=== PATIENT | female | born 1930 | race Asian ===

== ENCOUNTER 2018-09-05 13:13 | Inpatient (IN) | payer MEDICARE, MEDICAID ==
[2018-09-05] VITALS (11 sets, daily range): BP systolic 90–139; BP diastolic 42–117
[~2018-09-05] VITALS: Ht 154.9 cm; Wt 81.6 kg
[~2018-09-05 13:13] MED LIST: ACTOS30 MG ORAL; ASPIRIN-LOW81 MG ORAL; ATORVASTATIN CA20 MG ORAL; CELEBREX200 MG ORAL; DIOVAN HCT 80MG1 TAB ORAL; EVISTA60 MG ORAL; LIDODERM700 M1 TOPIC; LYRICA50 MG ORAL; NEXIUM40 MG ORAL; OYSTERCAL-D 501 EACH PO
--- NOTE | 2018-09-05 13:35 | NUR ---
ED Nurse Note: Pt BIBA from home due to R knee pain, pt has been "feeling more tired and could not stand up and laid on the floor x 24hr", Pt did not fall as stated by family. Pt talks to family as usual. Upon arrival, pt opens eyes spontaneously, speaks Setswana. Skin tear noted on R lateral knee, redness noted on bilateral knees. Pain 5/10 hilary. Vital signs stable. Will cont to monitor.
--- NOTE | 2018-09-05 13:50 | NUR ---
ED Nurse Note: Blood and urine collected and sent to lab.
[2018-09-05 14:20] LABS: APPEARANCE,URINE TURBID; BILIRUBIN, URINE NEGATIVE (NEGATIVE); COLOR,URINE PALE YELLOW; GLUCOSE, URINE (UA) NEGATIVE (NEGATIVE); KETONES,URINE 1+ (NEGATIVE); LEUKOCYTE ESTERASE ,URINE 3+ (NEGATIVE); NITRITE,URINE NEGATIVE (NEGATIVE); PH,URINE 5 (4.5-8.0); PROTEIN,URINE 3+ (NEGATIVE); UROBILINOGEN,URINE NORMAL MG/DL (0.0-1.0)
[2018-09-05 15:01] LABS: HEMATOCRIT 33.6 % (37.0-47.0); HEMOGLOBIN 10.7 G/DL (12.0-16.0); MEAN CORPUSCULAR VOLUME 110 FL (80-99); PLATELET COUNT 146 K/UL (150-450); RED BLOOD COUNT 3.06 M/UL (4.20-5.40); RED CELL DISTRIBUTION WIDTH 13.6 % (11.6-14.8); WHITE BLOOD COUNT 10.3 K/UL (4.8-10.8)
[2018-09-05] MEDS ORDERED: cefTRIAXone 1 GM in NS 55 ML IVPB ONE (15:15)
[2018-09-05 15:16] LABS: ANION GAP 14 mmol/L (5-15); BLOOD UREA NITROGEN 66 mg/dL (7-18); CARBON DIOXIDE 18 MMOL/L (21-32); CHLORIDE 108 MMOL/L (98-107); CREATININE 2.6 MG/DL (0.55-1.30); POTASSIUM 5.7 MMOL/L (3.5-5.1); SODIUM 140 MMOL/L (136-145)
[2018-09-05 15:21] LABS: ALANINE AMINOTRANSFERASE 98 U/L (12-78); ALBUMIN 3.1 G/DL (3.4-5.0); ALBUMIN/GLOBULIN RATIO 0.8 (1.0-2.7); ALKALINE PHOSPHATASE 72 U/L (46-116); ASPARTATE AMINO TRANSFERASE 299 U/L (15-37); BILIRUBIN,TOTAL 0.4 MG/DL (0.2-1.0)
[2018-09-05 15:29] LABS: CREATINE KINASE 7665 U/L (26-308)
--- NOTE | 2018-09-05 15:37 | NUR ---
ED Nurse Note: X-ray tech at bedside for imaging.
[2018-09-05] MEDS ORDERED: BENICAR5 MG ORAL (15:42)
[2018-09-05] MEDS ORDERED: FUROSEMIDE20 M1 ORAL (15:42)
[2018-09-05] MEDS ORDERED: NEXIUM40 MG ORAL (15:42)
--- NOTE | 2018-09-05 15:42 | Diagnostic Imaging Report ---
Indication: Headache. Trauma Technique: Contiguous 5 mm thick transaxial imaging of the head obtained in a Siemens Sensation [address] scanner. Soft tissue and bone windows generated. Automatic Exposure Control was utilized. Total Dose length Product (DLP): 1457.[address] Dose Index Volume (CTDIvol): 70.38 mGy Comparison: 10/08/2013 Findings: There is moderate prominence of the ventricles, basal cisterns, and cerebral sulci consistent with atrophy. Moderate, nonspecific, white matter hypoattenuation is noted throughout the brain consistent with chronic small vessel disease. There is no midline shift, edema, acute hemorrhage, mass effect, or abnormal extra-axial fluid collections. Bones and extra osseous soft tissues are unremarkable. Impression: No acute intracranial bleed, mass effect or edema. Moderate atrophy of the brain. Evidence of chronic small vessel disease involving white matter tracts. No interval change The CT scanner at [facility] is accredited by the [employer] and the scans are performed using dose optimization techniques as appropriate to a performed exam including Automatic Exposure control.
--- NOTE | 2018-09-05 15:50 | Diagnostic Imaging Report ---
Indication: Hip pain and trauma Technique: continuous helical imaging in the transaxial plane was performed from the iliac crests to the pubic symphysis with attention to the right hip. Coronal 2-D reformatted images were also generated. Study obtained in a Siemens Sensation [address] total DLP: 376.8 mGycm CTD/vol: 12.95 mGy Comparison: None Findings: There is no evidence of an acute fracture or significant malalignment identified on this examination. Bones are osteopenic. Degenerative changes of both hips and sacroiliac joints noted with osteophyte formation and some vacuum phenomena. Michelle catheter is noted and appears to be in good position. There is a curvilinear structure within what appears to be a very atrophic uterus. Aortoiliac calcifications are noted. There is no free fluid within the pelvis. There is a small amount of subcutaneous soft tissue stranding in the gluteal region. IMPRESSION: No acute fracture identified. 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 Michelle catheter in good position. Apparent intrauterine device. Mild subcutaneous edema over the right gluteal region likely related to recent trauma The CT scanner at [facility] is accredited by the [employer] and the scans are performed using dose optimization techniques as appropriate to a performed exam including Automatic Exposure control.
--- NOTE | 2018-09-05 15:55 | Diagnostic Imaging Report ---
Indication: Cough Comparison: 10/08/2013 A single view chest radiograph was obtained. Findings: Cardiac silhouette is prominent. The right hemidiaphragm appears slightly elevated. There is mild atelectasis present. No definite infiltrate identified. Bones are osteopenic. IMPRESSION: No acute findings
--- NOTE | 2018-09-05 15:57 | Diagnostic Imaging Report ---
Indication: pain Pelvic trauma and pain Findings: Single AP view of the pelvis was performed. No acute fracture is identified. Bilateral hips and sacroiliac joints appear symmetric.There is no malalignment. Bones are osteopenic. IUD noted. Michelle catheter noted. Degenerative changes of the lower lumbar spine, both hips and sacroiliac joints are noted. Soft tissues are unremarkable. Impression: No acute findings.
--- NOTE | 2018-09-05 15:57 | Diagnostic Imaging Report ---
Indication: Pain Knee pain/trauma 3 views of the right knee were obtained. Findings: Bones are osteopenic. No definite fracture or malalignment identified. There is moderate to severe narrowing of the joint space in all 3 compartments. IMPRESSION: No acute fracture identified. Severe arthrosis of the knee and osteoporosis.
--- NOTE | 2018-09-05 15:58 | Diagnostic Imaging Report ---
Indications: hip pain Findings: Two views of the right hip were obtained. No acute fracture is demonstrated. Bones are osteopenic. Moderate arthrosis noted. Michelle catheter noted. Alignment of the hip is within normal limits. Soft tissues are unremarkable. Impression: Negative for acute injury.
--- NOTE | 2018-09-05 16:46 | Cardiac Electrophysiology PN ---
Subjective Subjective Seen in ER and DW daughter. DNR, DNI, No Cath but full medical therapy [id number] Objective Last 24 Hour Vital Signs Date Time Temp Pulse Resp B/P (MAP) Pulse Ox O2 Delivery O2 Flow Rate FiO2 09/05/18 15:39 98.6 102 23 127/74 98 Room Air 09/05/18 13:47 98 21 Room Air 09/05/18 13:46 98 21 127/65 98 Room Air 09/05/18 13:05 98.6 76 18 122/65 98 Room Air Laboratory Tests Test 09/05/18 14:00 09/05/18 14:13 Urine Color Pale yellow Urine Appearance Turbid Urine pH 5 (4.5-8.0) Urine Specific [place] 1.015 (1.005-1.035) Urine Protein 3+ (NEGATIVE) H Urine Glucose (UA) Negative (NEGATIVE) Urine Ketones 1+ (NEGATIVE) H Urine Blood 4+ (NEGATIVE) H Urine Nitrite Negative (NEGATIVE) Urine Bilirubin Negative (NEGATIVE) Urine Urobilinogen Normal MG/DL (0.0-1.0) Urine Leukocyte Esterase 3+ (NEGATIVE) H Urine RBC 2-4 /HPF (0 - 2) H Urine WBC 60-80 /HPF (0 - 2) H Urine Squamous Epithelial Cells Few /LPF (NONE/OCC) Urine Bacteria Many /HPF (NONE) H White Blood Count 10.3 K/UL (4.8-10.8) Red Blood Count 3.06 M/UL (4.20-5.40) L Hemoglobin 10.7 G/DL (12.0-16.0) L Hematocrit 33.6 % (37.0-47.0) L Mean Corpuscular Volume 110 FL (80-99) H Mean Corpuscular Hemoglobin 35.0 PG (27.0-31.0) H Mean Corpuscular Hemoglobin Concent 31.9 G/DL (32.0-36.0) L Red Cell Distribution Width 13.6 % (11.6-14.8) Platelet Count 146 K/UL (150-450) L Mean Platelet Volume 7.2 FL (6.5-10.1) Neutrophils (%) (Auto) % (45.0-75.0) Lymphocytes (%) (Auto) % (20.0-45.0) Monocytes (%) (Auto) % (1.0-10.0) Eosinophils (%) (Auto) % (0.0-3.0) Basophils (%) (Auto) % (0.0-2.0) Differential Total Cells Counted 100 Neutrophils % (Manual) 72 % (45-75) Lymphocytes % (Manual) 5 % (20-45) L Monocytes % (Manual) 7 % (1-10) Eosinophils % (Manual) 0 % (0-3) Basophils % (Manual) 0 % (0-2) Band Neutrophils 16 % (0-8) H Platelet Estimate Decreased L Platelet Morphology Normal Hypochromasia 1+ Anisocytosis 1+ Prothrombin Time 10.3 SEC (9.30-11.50) Prothromb Time International Ratio 1.0 (0.9-1.1) Activated Partial Thromboplast Time 31 SEC (23-33) Sodium Level 140 MMOL/L (136-145) Potassium Level 5.7 MMOL/L (3.5-5.1) H Chloride Level 108 MMOL/L (98-107) H Carbon Dioxide Level 18 MMOL/L (21-32) L Anion Gap 14 mmol/L (5-15) Blood Urea Nitrogen 66 mg/dL (7-18) H Creatinine 2.6 MG/DL (0.55-1.30) H Estimat Glomerular Filtration Rate mL/min (>60) Glucose Level 181 MG/DL (74-106) H Calcium Level 9.0 MG/DL (8.5-10.1) Total Bilirubin 0.4 MG/DL (0.2-1.0) Aspartate Amino Transf (AST/SGOT) 299 U/L (15-37) H Alanine Aminotransferase (ALT/SGPT) 98 U/L (12-78) H Alkaline Phosphatase 72 U/L (46-116) Total Creatine Kinase 7665 U/L (26-308) H Troponin I 28.022 ng/mL (0.000-0.056) Total Protein 7.1 G/DL (6.4-8.2) Albumin 3.1 G/DL (3.4-5.0) L Globulin 4.0 g/dL Albumin/Globulin Ratio 0.8 (1.0-2.7) L Kevin Ruiz MD Sep 05, 2018 16:46
[2018-09-05] MEDS ORDERED: Sodium Polystyrene Sulfonate 15gm Powder ORAL SCH (17:45)
--- NOTE | 2018-09-05 17:54 | History and Physical ---
History of Present Illness General Date patient seen: Sep 05, 2018 Time patient seen: 17:35 Reason for Hospitalization: Multiple Trauma/Fall Present Illness HPI 88 year old woman with diabetes, hypertension, and hypercholesterolemia who comes from home accompanied by her daughter who is an RN and provides much of the history. Patient was reportedly found down on the ground for 24 hours - unsure if she fell. No chest pain, dyspnea or palpitations. In ED she was noted to have elevated creatinine, potassium, CK and troponin levels. Also with abnormal UA with pyuria. She was seen by Cardiology and is being admitted to the ICU for suspected NSTEMI and medical management. Of note, imaging of the hips including plain films and CT negative for acute fracture. Per daughter she is DNR and she would not want intubation or CPR. social history: no alcohol or tobaccio family history: no premature CAD Allergies: Coded Allergies: No Known Allergies (Verified , 10/20/11) Medication History Scheduled Acetaminophen With Codeine (T#3) (Tylenol #3 Tab*), 1 TAB ORAL BID, (Reported) Aspirin (Aspirin EC), 81 MG ORAL DAILY, (Reported) Atorvastatin Calcium* (Atorvastatin Calcium*), 10 MG ORAL BEDTIME, (Reported) Celecoxib* (Celebrex*), 200 MG ORAL DAILY, (Reported) Esomeprazole Magnesium (Nexium), 40 MG ORAL DAILY, (Reported) Esomeprazole Magnesium (Nexium), 40 MG ORAL DAILY, (Reported) Furosemide* (Lasix*), 20 MG ORAL DAILY, (Reported) Lidocaine (Lidoderm), 2 PATCH TOPIC DAILY, (Reported) Pioglitazone Hcl* (Actos*), 15 MG ORAL DAILY, (Reported) Pregabalin (Lyrica), 50 MG ORAL HS, (Reported) Raloxifene Hcl* (Evista*), 60 MG ORAL DAILY, (Reported) Valsartan (Diovan), 1 TAB ORAL DAILY, (Reported) Discontinued Medications Olmesartan Medoxomil (Benicar), 5 MG ORAL DAILY, (Reported) Discontinued Reason: Pt stopped taking med Pioglitazone Hcl* (Actos*), 40 MG ORAL DAILY, (Reported) Discontinued Reason: Prescription changed Patient History Healthcare decision maker Resuscitation status Advanced Directive on File Review of Systems Constitutional: Denies: chills, fever Eye: Denies: eye pain ENT: Denies: ear pain Respiratory: Denies: cough Cardiovascular: Denies: chest pain Gastrointestinal: Denies: abdominal pain Genitourinary: Denies: discharge Musculoskeletal: Denies: back pain Skin: Denies: rash Neurological: Denies: headache Physical Exam General Appearance: no apparent distress, alert HEENT: normocephalic, atraumatic Neck: non-tender, normal alignment Respiratory/Chest: chest wall non-tender, lungs clear, normal breath sounds Abdomen: normal bowel sounds, non tender, soft Extremities: normal range of motion, other - Tender right knee Neurologic: sports doctor II-XII grossly normal, no motor/sensory deficits, alert Musculoskeletal: normal muscle bulk, no effusion Last 24 Hour Vital Signs Date Time Temp Pulse Resp B/P (MAP) Pulse Ox O2 Delivery O2 Flow Rate FiO2 09/05/18 17:47 98.6 117 30 139/82 100 Room Air 09/05/18 16:58 98.6 119 24 137/117 100 Room Air 09/05/18 15:39 98.6 102 23 127/74 98 Room Air 09/05/18 13:47 98 21 Room Air 09/05/18 13:46 98 21 127/65 98 Room Air 09/05/18 13:05 98.6 76 18 122/65 98 Room Air Laboratory Tests Test 09/05/18 14:00 09/05/18 14:13 Urine Color Pale yellow Urine Appearance Turbid Urine pH 5 (4.5-8.0) Urine Specific [place] 1.015 (1.005-1.035) Urine Protein 3+ (NEGATIVE) H Urine Glucose (UA) Negative (NEGATIVE) Urine Ketones 1+ (NEGATIVE) H Urine Blood 4+ (NEGATIVE) H Urine Nitrite Negative (NEGATIVE) Urine Bilirubin Negative (NEGATIVE) Urine Urobilinogen Normal MG/DL (0.0-1.0) Urine Leukocyte Esterase 3+ (NEGATIVE) H Urine RBC 2-4 /HPF (0 - 2) H Urine WBC 60-80 /HPF (0 - 2) H Urine Squamous Epithelial Cells Few /LPF (NONE/OCC) Urine Bacteria Many /HPF (NONE) H White Blood Count 10.3 K/UL (4.8-10.8) Red Blood Count 3.06 M/UL (4.20-5.40) L Hemoglobin 10.7 G/DL (12.0-16.0) L Hematocrit 33.6 % (37.0-47.0) L Mean Corpuscular Volume 110 FL (80-99) H Mean Corpuscular Hemoglobin 35.0 PG (27.0-31.0) H Mean Corpuscular Hemoglobin Concent 31.9 G/DL (32.0-36.0) L Red Cell Distribution Width 13.6 % (11.6-14.8) Platelet Count 146 K/UL (150-450) L Mean Platelet Volume 7.2 FL (6.5-10.1) Neutrophils (%) (Auto) % (45.0-75.0) Lymphocytes (%) (Auto) % (20.0-45.0) Monocytes (%) (Auto) % (1.0-10.0) Eosinophils (%) (Auto) % (0.0-3.0) Basophils (%) (Auto) % (0.0-2.0) Differential Total Cells Counted 100 Neutrophils % (Manual) 72 % (45-75) Lymphocytes % (Manual) 5 % (20-45) L Monocytes % (Manual) 7 % (1-10) Eosinophils % (Manual) 0 % (0-3) Basophils % (Manual) 0 % (0-2) Band Neutrophils 16 % (0-8) H Platelet Estimate Decreased L Platelet Morphology Normal Hypochromasia 1+ Anisocytosis 1+ Prothrombin Time 10.3 SEC (9.30-11.50) Prothromb Time International Ratio 1.0 (0.9-1.1) Activated Partial Thromboplast Time 31 SEC (23-33) D-Dimer 4.93 mg/L FEU (0.00-0.49) H Sodium Level 140 MMOL/L (136-145) Potassium Level 5.7 MMOL/L (3.5-5.1) H Chloride Level 108 MMOL/L (98-107) H Carbon Dioxide Level 18 MMOL/L (21-32) L Anion Gap 14 mmol/L (5-15) Blood Urea Nitrogen 66 mg/dL (7-18) H Creatinine 2.6 MG/DL (0.55-1.30) H Estimat Glomerular Filtration Rate mL/min (>60) Glucose Level 181 MG/DL (74-106) H Calcium Level 9.0 MG/DL (8.5-10.1) Total Bilirubin 0.4 MG/DL (0.2-1.0) Aspartate Amino Transf (AST/SGOT) 299 U/L (15-37) H Alanine Aminotransferase (ALT/SGPT) 98 U/L (12-78) H Alkaline Phosphatase 72 U/L (46-116) Total Creatine Kinase 7665 U/L (26-308) H Troponin I 28.022 ng/mL (0.000-0.056) Total Protein 7.1 G/DL (6.4-8.2) Albumin 3.1 G/DL (3.4-5.0) L Globulin 4.0 g/dL Albumin/Globulin Ratio 0.8 (1.0-2.7) L Height (Feet): 5 Weight (Pounds): 145 Medications Current Medications Medications (Trade) Dose Ordered Sig/Nikita Route PRN Reason Start Time Stop Time Status Last Admin Dose Admin Aspirin (Ecotrin) 81 mg DAILY ORAL 09/06/18 09:00 10/06/18 08:59 Atorvastatin Calcium (Lipitor) 10 mg ONCE ONCE ORAL 09/05/18 17:00 09/05/18 17:01 UNV Ceftriaxone Sodium 1 gm/ Sodium Chloride 55 ml @ 110 mls/hr Q24HRS ONCE IVPB 09/05/18 18:00 09/05/18 18:29 UNV Dextrose (Dextrose 50%) 25 ml Q30M PRN IV Hypoglycemia 09/05/18 17:45 10/05/18 17:44 UNV Dextrose (Dextrose 50%) 50 ml Q30M PRN IV Hypoglycemia 09/05/18 17:45 10/05/18 17:44 UNV Enoxaparin Sodium (Lovenox) 60 mg Q24H SUBQ 09/05/18 18:00 10/05/18 17:59 Insulin Aspart (NovoLOG) BEFORE MEALS AND HS SUBQ 09/05/18 21:00 10/05/18 20:59 UNV Lidocaine (Lidoderm 5% PATCH) 2 patch DAILY TDERMAL 09/06/18 09:00 10/06/18 08:59 UNV Metoprolol Tartrate (Lopressor) 12.5 mg Q12HR ORAL 09/05/18 21:00 10/05/18 20:59 UNV Pregabalin (Lyrica) 50 mg BEDTIME ORAL 09/05/18 21:00 10/05/18 20:59 UNV Sodium Polystyrene Sulfonate (Kayexalate) 30 gm ONCE ORAL 09/05/18 17:45 09/05/18 20:00 Sodium Chloride 1,000 ml @ 125 mls/hr Q8H IV 09/05/18 18:00 10/05/18 17:59 Assessment/Plan Assessment/Plan #Fall #Rhabdomyolysis #HAIR #Hyperkalemia #Metabolic acidosis -admit to ICU -start IV hydration with NS -start NS -monitor CK levels -avoid nephrotoxic meds -repeat K level after kayexelate #Possible NSTEMI -seen by Cardiology -start medical management of AMI -Lovenox,ASA,Statin, B-millie -Check TTE -Cardiac monitoring #Possible UTI --start ceftriaxone -follow up urine culture #Type 2 DM -hold Actos with HAIR -lispro SS #HTN -hold Diovan and Lasix with HAIR -monitor BP VTE PPx Lovenox DNR 70 minutes was spent in caring for the patient which includes coordination of care with nursing, end user consultant , 35 minues was spent in direct face to face time with patient and family Caden Kelsey MD Sep 05, 2018 17:54
[2018-09-05] MEDS ORDERED: ACTOS15 MG ORAL (17:58)
[2018-09-05] MEDS ORDERED: ACETAMINOPHEN-1 EAC1 ORAL (17:58)
[2018-09-05] MEDS ORDERED: Enoxaparin 60mg Inj SUBQ SCH (18:00)
--- NOTE | 2018-09-05 18:30 | NUR ---
NURSE NOTES: Patient received from TIE KNITTER HELPER. Patient is alert and oriented, [place]ian speaking. Patient is accompanied with daughter who speaks [place] very well. Patient is awake and according to daughter patient is oriented. Patient is brought with temperature of 102.3F Rectally. Patients HR is 108 ST, 118/64, RR 20, SpO2 100%. Patient started on NS at 125ml/hr via R wrist 22G. Tylenol 650mg Po, cooling measures, Kayexalate given orally. Patient noted to have Michelle catheter with milky white colored urine. MD orders already have been placed. Patient is on 2L O2 therapy. No respiratory distress. Lab at bedside drawing labs. Right knee scab noted, picture taken.
--- NOTE | 2018-09-05 18:33 | NUR ---
ED Nurse Note: Report given to ROQUE Hung at ext [phone]. Pt transfered to ICU per protocol.
--- NOTE | 2018-09-05 18:50 | Consultation ---
Consult Note Consult Note Patient lives with her who is 89 years old. Patient apparently became weak and fell on the floor. Patient was discovered by her daughter and brought to the emergency department further evaluation. Patient is DNR/DNI. This is according the patient's daughter. However she does want intervention and treatment. Patient otherwise is a neighbor provide much history. Patient appear weak and appeared to have some bruises on the right knee. This is consistent with laying on the floor for a period of time. No other complaints are noted other than some evidence of hip pain with exam. Patient is not a good historian. No further history is available at this time. Symptoms noted to be severe.No other modifying factors. No other associated signs and symptoms. No other complaints were noted. No Known Allergies (Verified , 10/20/11) Past Medical History: DM, HTN, CAD Past Medical History: No History, Except For Hx Cardiac Problems: Yes Hx Hypertension: Yes Hx Diabetes: Yes Hx Gastrointestinal Problems: Yes examined data reviewed Assessment/Plan Acute Renal Failure- Fall, Rhabdo High K Myocardial injury ( elevated Troponin) UTI DM HTN hydrate urine studies gastric protection cardiology eval 2D echo monitor CPK antibiotics Erick Patterson MD Sep 05, 2018 18:50
--- NOTE | 2018-09-05 19:21 | Emergency Room Report ---
History of Present Illness General Chief Complaint: Multiple Trauma/Fall Source: Family Member, EMS Present Illness HPI Patient lives with her who is 89 years old. Patient apparently became weak and fell on the floor. Patient was discovered by her daughter and brought to the emergency department further evaluation. Patient is DNR/DNI. This is according the patient's daughter. However she does want intervention and treatment. Patient otherwise is a neighbor provide much history. Patient appear weak and appeared to have some bruises on the right knee. This is consistent with laying on the floor for a period of time. No other complaints are noted other than some evidence of hip pain with exam. Patient is not a good historian. No further history is available at this time. Symptoms noted to be severe.No other modifying factors. No other associated signs and symptoms. No other complaints were noted. Allergies: Coded Allergies: No Known Allergies (Verified , 10/20/11) Patient History Past Medical History: DM, HTN, CAD Past Surgical History: none Pertinent Family History: none Social History: Denies: smoking, alcohol use, drug use Reviewed Nursing Documentation: PMH: Agreed; PSxH: Agreed Nursing Documentation-PMH Past Medical History: No History, Except For Hx Cardiac Problems: Yes Hx Hypertension: Yes Hx Diabetes: Yes Hx Cancer: No Hx Gastrointestinal Problems: Yes Hx Neurological Problems: No Review of Systems All Other Systems: limited - poor mental status Physical Exam Vital Signs Date Time Temp Pulse Resp B/P (MAP) Pulse Ox O2 Delivery O2 Flow Rate FiO2 09/05/18 13:05 98.6 76 18 122/65 98 Room Air Sp02 EP Interpretation: reviewed, normal General Appearance: moderate distress, lethargic, Chronically Ill Head: normocephalic, atraumatic Eyes: bilateral eye normal inspection ENT: no angioedema, dry mucus membranes Neck: normal inspection, full range of motion, supple Respiratory: normal inspection, lungs clear, normal breath sounds, no respiratory distress, no retraction, no wheezing Cardiovascular #1: regular rate, rhythm, no edema Gastrointestinal: normal inspection, normal bowel sounds, non tender, soft, no guarding, no hernia Genitourinary: normal inspection, no CVA tenderness Musculoskeletal: decreased range of motion - right hip, tender - right hip, right knee Neurologic: other - sleepy, is responsive to pain, unable to fully assess Psychiatric: other - unable to assess Skin: normal inspection, normal color, no rash Procedures Critical Care Time Critical Care Time Patient had a critical medical condition which untreated could potentially result in life or limb threatening injury. Total critical care time excluding procedures was approximately 45 minutes. Additional Procedure Procedure Narrative Had [id number] discussion with patient's family for greater 15 minutes. Advised about patient's condition. Patient's family advised that patient be DNR /DNI but have otherwise medical intervention. Form was signed and cosign. Patient's daughter. This information was conveyed to patient's admitting physician. Medical Decision Making Diagnostic Impression: Primary Impression: NSTEMI (non-ST elevated myocardial infarction) Additional Impressions: UTI (lower urinary tract infection) Sepsis Rhabdomyolysis ER Course Patient presents emergency department today with weakness. Differential considerations include UTI, sepsis, acute IL, intracranial hemorrhage just name a few. Given the severity of the patient's presentation I felt this is a highly complex patient. This patient required extensive workup. Patient's laboratory workup shows evidence rhabdomyolysis. There is also evidence UTI. Patient was started on IV antibiotics. There is no evidence of elevated white count therefore this is just mild sepsis and no evidence of severe sepsis. Patient however had elevated troponin likely secondary to IL. Patient was given aspirin. Case was discussed in detail with Dr. Ruiz and admitting physician Dr. Collier. Patient will be admitted to ICU for further treatment. Labs Test 09/05/18 14:00 09/05/18 14:13 Urine Color Pale yellow Urine Appearance Turbid Urine pH 5 (4.5-8.0) Urine Specific [place] 1.015 (1.005-1.035) Urine Protein 3+ (NEGATIVE) Urine Glucose (UA) Negative (NEGATIVE) Urine Ketones 1+ (NEGATIVE) Urine Blood 4+ (NEGATIVE) Urine Nitrite Negative (NEGATIVE) Urine Bilirubin Negative (NEGATIVE) Urine Urobilinogen Normal MG/DL (0.0-1.0) Urine Leukocyte Esterase 3+ (NEGATIVE) Urine RBC 2-4 /HPF (0 - 2) Urine WBC 60-80 /HPF (0 - 2) Urine Squamous Epithelial Cells Few /LPF (NONE/OCC) Urine Bacteria Many /HPF (NONE) White Blood Count 10.3 K/UL (4.8-10.8) Red Blood Count 3.06 M/UL (4.20-5.40) Hemoglobin 10.7 G/DL (12.0-16.0) Hematocrit 33.6 % (37.0-47.0) Mean Corpuscular Volume 110 FL (80-99) Mean Corpuscular Hemoglobin 35.0 PG (27.0-31.0) Mean Corpuscular Hemoglobin Concent 31.9 G/DL (32.0-36.0) Red Cell Distribution Width 13.6 % (11.6-14.8) Platelet Count 146 K/UL (150-450) Mean Platelet Volume 7.2 FL (6.5-10.1) Neutrophils (%) (Auto) % (45.0-75.0) Lymphocytes (%) (Auto) % (20.0-45.0) Monocytes (%) (Auto) % (1.0-10.0) Eosinophils (%) (Auto) % (0.0-3.0) Basophils (%) (Auto) % (0.0-2.0) Differential Total Cells Counted 100 Neutrophils % (Manual) 72 % (45-75) Lymphocytes % (Manual) 5 % (20-45) Monocytes % (Manual) 7 % (1-10) Eosinophils % (Manual) 0 % (0-3) Basophils % (Manual) 0 % (0-2) Band Neutrophils 16 % (0-8) Platelet Estimate Decreased Platelet Morphology Normal Hypochromasia 1+ Anisocytosis 1+ Prothrombin Time 10.3 SEC (9.30-11.50) Prothromb Time International Ratio 1.0 (0.9-1.1) Activated Partial Thromboplast Time 31 SEC (23-33) D-Dimer 4.93 mg/L FEU (0.00-0.49) Sodium Level 140 MMOL/L (136-145) Potassium Level 5.7 MMOL/L (3.5-5.1) Chloride Level 108 MMOL/L (98-107) Carbon Dioxide Level 18 MMOL/L (21-32) Anion Gap 14 mmol/L (5-15) Blood Urea Nitrogen 66 mg/dL (7-18) Creatinine 2.6 MG/DL (0.55-1.30) Estimat Glomerular Filtration Rate mL/min (>60) Glucose Level 181 MG/DL (74-106) Calcium Level 9.0 MG/DL (8.5-10.1) Total Bilirubin 0.4 MG/DL (0.2-1.0) Aspartate Amino Transf (AST/SGOT) 299 U/L (15-37) Alanine Aminotransferase (ALT/SGPT) 98 U/L (12-78) Alkaline Phosphatase 72 U/L (46-116) Total Creatine Kinase 7665 U/L (26-308) Troponin I 28.022 ng/mL (0.000-0.056) Total Protein 7.1 G/DL (6.4-8.2) Albumin 3.1 G/DL (3.4-5.0) Globulin 4.0 g/dL Albumin/Globulin Ratio 0.8 (1.0-2.7) EKG Diagnostic Results Rate: normal Rhythm: NSR ST Segments: no acute changes Rhythm Strip Diag. Results EP Interpretation: yes Rate: 90s Rhythm: NSR, no PVC's, no ectopy Chest X-Ray Diagnostic Results Chest X-Ray Diagnostic Results : Chest X-Ray Ordered: Yes # of Views/Limited/Complete: 1 View Indication: Chest Pain EP Interpretation: No Impression: No acute disease Other X-Ray Diagnostic Results Other X-Ray Diagnostic Results #1: X-Ray ordered: pelvis x-ray # of Views/Limited Vs Complete: 1 View Indication: Pain EP Interpretation: No Interpretation: no dislocation, no soft tissue swelling, no fractures Impression: No acute disease Other X-Ray Diagnostic Results #2: X-Ray ordered: right knee # of Views/Limited Vs Complete: 2 View Indication: Pain EP Interpretation: No Impression: No acute disease Other X-Ray Diagnostic Results #3: X-Ray ordered: right hip # of Views/Limited Vs Complete: 2 View Indication: Pain EP Interpretation: No Impression: No acute disease Last Vital Signs Date Time Temp Pulse Resp B/P (MAP) Pulse Ox O2 Delivery O2 Flow Rate FiO2 09/05/18 18:36 98.6 108 21 128/66 100 Room Air Condition: Critical Referrals: NON PHYSICIAN (PCP) Jairo Koo MD Sep 05, 2018 19:21
--- NOTE | 2018-09-05 20:00 | NUR ---
NURSE NOTES: Patient repositioned, cooling measure still in effect, latest temperature is 99.9F axillary, patient remains warm to touch. Patient is receiving NS fluids at 125ml/hr, still making whitish/milky colored urine, IV lines remains intact, patient resting comfortably. HR 105 ST, BP is stable, No acute respiratory distress.
[2018-09-05 20:25] LABS: CREATINE KINASE 5642 U/L (26-308)
[2018-09-05] MEDS: Pantoprazole Inj IVP SCH (20:45)
[2018-09-05] MEDS: Lyrica 50mg cap ORAL SCH (20:45)
[2018-09-05] MEDS: Metoprolol 25mg tab ORAL SCH (20:46)
[2018-09-05] MEDS: NovoLOG Insulin Flexpen SUBQ SCH (20:47)
--- NOTE | 2018-09-05 22:00 | NUR ---
NURSE NOTES: Patient repositioned, patient currently sleeping, no acute distress, VS stable.
--- NOTE | 2018-09-05 23:30 | Consultation ---
DATE OF CONSULTATION: 09/05/2018 CARDIOLOGY CONSULTATION CONSULTING PHYSICIAN: Kevin Ruiz M.D. REFERRING PHYSICIAN: Ty Guerrero M.D. REASON FOR CONSULTATION: Non-ST elevation myocardial infarction. HISTORY OF PRESENT ILLNESS: The patient is an 88-year-old [place] lady with history of hypertension and hyperlipidemia, who lives at home independently with her of 89 years old, was found on the floor. The patient's daughter was a nurse. She has not had a fall. She just felt weak and land on the floor and could not get up. The patient was brought to the emergency room for further evaluation. The patient denies any chest pain, palpitation, or shortness of breath and she is alert in the emergency room. REVIEW OF SYSTEMS: Review of systems was negative other than what was mentioned in the history of present illness. PAST MEDICAL HISTORY: As mentioned above. FAMILY HISTORY: Noncontributory. SOCIAL HISTORY: She lives with her . Does not smoke or drink alcohol. PHYSICAL EXAMINATION: VITAL SIGNS: Show blood pressure of 127/74, pulse 102, respirations 20, and temperature 98.6. HEAD AND NECK: Shows no JVD. LUNGS: Shows coarse rhonchi. CARDIOVASCULAR: Shows regular S1 and S2 with no gallop or murmur. ABDOMEN: Soft. EXTREMITIES: No pitting edema. LABORATORY AND DIAGNOSTIC DATA: Labs show white count of 10.7, hemoglobin 10.7, hematocrit 33.6, and platelet count of . Sodium 140, potassium 5.7, BUN of , creatinine of 2.6, and glucose of 181. Total CK is 7065 . Troponin is . ASSESSMENT AND PLAN: 1. Non-ST elevation myocardial infarction with troponin of 28. The patient does not have any chest pain rhabdomyolysis, as the CK is more than 7600. The patient also has renal failure, creatinine of 2.6. The patient's daughter made the patient DNR and DNI, but I agree with full medical therapy, but does not want cardiac catheterization. We will treat the patient medically with aspirin, beta-millie, and statin. We will get a stat echocardiogram for ejection fraction and wall motion abnormality and repeat EKG. 2. Hypertension. Keep the patient on beta-millie at this time. 3. Hyperlipidemia, on Lipitor. 4. Rhabdomyolysis. We will start the patient on IV fluid. 5. Renal failure, creatinine 2.5. Thank you very much, Dr. Guerrero for allowing me to participate in the care of this patient. Please do not hesitate to contact for any questions regarding my evaluation. The case was discussed with the emergency room physician as well as the patient's daughter at the bedside. Kevin Ruiz M.D. DR: MARYBEL JOB#: [id number] CC:
[2018-09-06] VITALS (24 sets, daily range): BP systolic 85–141; BP diastolic 35–114
--- NOTE | 2018-09-06 | NUR ---
NURSE NOTES: Repositioned, patients vitals remains stable, fluids remain running, no signs of acute distress.
--- NOTE | 2018-09-06 02:00 | NUR ---
NURSE NOTES: Patient repositioned, Vitals remains stable. Patient sleeping at this time. Will continue to monitor.
[2018-09-06 03:51] LABS: HEMATOCRIT 31.5 % (37.0-47.0); HEMOGLOBIN 10.4 G/DL (12.0-16.0); MEAN CORPUSCULAR VOLUME 107 FL (80-99); PLATELET COUNT 142 K/UL (150-450); RED BLOOD COUNT 2.94 M/UL (4.20-5.40); RED CELL DISTRIBUTION WIDTH 13.4 % (11.6-14.8); WHITE BLOOD COUNT 11.1 K/UL (4.8-10.8)
--- NOTE | 2018-09-06 04:00 | NUR ---
NURSE NOTES: Patient cleaned and repositioned, no BM yet. Vitals remains stable, no acute distress, fluids ongoing. No acute events so far, bed in lowest position, call light within reach, bed alarm.
[2018-09-06 04:33] LABS: ALANINE AMINOTRANSFERASE 88 U/L (12-78); ALBUMIN 2.8 G/DL (3.4-5.0); ALBUMIN/GLOBULIN RATIO 0.7 (1.0-2.7); ALKALINE PHOSPHATASE 67 U/L (46-116); ANION GAP 15 mmol/L (5-15); ASPARTATE AMINO TRANSFERASE 215 U/L (15-37); BILIRUBIN,TOTAL 0.2 MG/DL (0.2-1.0); BLOOD UREA NITROGEN 69 mg/dL (7-18); CALCIUM 8.5 MG/DL (8.5-10.1); CARBON DIOXIDE 17 MMOL/L (21-32); CHLORIDE 111 MMOL/L (98-107); CHOLESTEROL 133 MG/DL (< 200); CREATINE KINASE 3854 U/L (26-308); CREATININE 2.6 MG/DL (0.55-1.30); FERRITIN 788 NG/ML (8-388); GAMMA GLUTAMYL TRANSPEPTIDASE 18 U/L (5-85); HDL CHOLESTEROL 40 MG/DL (40-60); PHOSPHORUS 5.5 MG/DL (2.5-4.9); POTASSIUM 5.3 MMOL/L (3.5-5.1); SODIUM 143 MMOL/L (136-145); TRIGLYCERIDES 126 MG/DL (30-150)
--- NOTE | 2018-09-06 06:00 | NUR ---
NURSE NOTES: Patient repositioned, VS stable, morning glucose is 100, no coverage needs, NAD, afebrile.
[2018-09-06] MEDS: NovoLOG Insulin Flexpen SUBQ SCH ×4 (06:30→19:57)
--- NOTE | 2018-09-06 07:50 | NUR ---
NURSE NOTES: Patient assisted and pulled up in bed for breakfast with aid of another Bengali RN. Breakfast tray set up.
--- NOTE | 2018-09-06 08:00 | NUR ---
NURSE NOTES: Dr. Colleir in facility, saw and assessed patient, informed about right knee swelling, warm to touch.
[2018-09-06] MEDS: Pantoprazole Inj IVP SCH ×2 (08:29→19:58)
[2018-09-06] MEDS: Aspirin EC 81mg tab ORAL SCH (08:30)
[2018-09-06] MEDS: Metoprolol 25mg tab ORAL SCH ×2 (08:31→20:00)
[2018-09-06] MEDS ORDERED: Heparin 5000 units/ml inj IV ONE (09:00)
--- NOTE | 2018-09-06 09:01 | Pulmonolgy Critical Care Note ---
Critical Care - Asmt/Plan Problems: (1) Elevated d-dimer (2) Rhabdomyolysis (3) NSTEMI (non-ST elevated myocardial infarction) (4) UTI (lower urinary tract infection) (5) Sepsis Respiratory: monitor respiratory rate, adjust FIO2 - Titrate FiO2 Cardiac: other - D/C LMWH --> start IVUH, trend trop, continue ASA/BB/statin, F /U TTE, F/U cards recs Renal: keep IV fluid - NS@125, other - Monitor Cr and CK Infectious Disease: check cultures, continue antibiotics - CTx Gastrointestinal: other - ADA/renal diet, aspiration precuations Endocrine: monitor blood sugar, continue sliding scale insulin Hematologic: monitor H/H, other - D/C LWMH, switch to IVUH given HAIR Prophylaxis: Protonix, Heparin - IVUH Disposition: keep in ICU Time Spent (Minutes): 40 Notes Reviewed: erisa attorney, cardio, renal, other - DNAR/DNI Discussed with: nurses, consultants Critical Care - Objective Last 24 Hour Vital Signs Date Time Temp Pulse Resp B/P (MAP) Pulse Ox O2 Delivery O2 Flow Rate FiO2 09/06/18 08:31 103 111/57 09/06/18 07:00 95 16 116/52 100 Nasal Cannula 2.0 09/06/18 06:00 90 15 123/49 100 Nasal Cannula 2.0 09/06/18 05:00 87 20 134/114 100 Nasal Cannula 2.0 09/06/18 04:00 2.0 09/06/18 04:00 88 09/06/18 04:00 99.6 89 16 114/65 100 Nasal Cannula 2.0 09/06/18 04:00 Nasal Cannula 2.0 09/06/18 03:00 88 14 109/50 100 Nasal Cannula 2.0 09/06/18 02:00 79 16 115/95 100 Nasal Cannula 2.0 09/06/18 01:00 69 18 110/49 100 Nasal Cannula 2.0 09/06/18 00:00 98.5 71 22 101/48 100 Nasal Cannula 2.0 09/06/18 00:00 Nasal Cannula 2.0 09/06/18 00:00 2.0 09/06/18 00:00 79 09/05/18 23:00 77 14 105/42 100 Nasal Cannula 2.0 09/05/18 22:00 80 15 90/50 100 Nasal Cannula 2.0 09/05/18 21:00 96 26 107/53 100 Nasal Cannula 2.0 09/05/18 20:46 102 118/53 09/05/18 20:23 99.8 09/05/18 20:00 2.0 09/05/18 20:00 104 09/05/18 20:00 99.9 103 23 118/53 97 Nasal Cannula 2.0 09/05/18 20:00 Nasal Cannula 2.0 09/05/18 19:00 106 28 125/59 97 Nasal Cannula 2.0 09/05/18 18:48 Nasal Cannula 2.0 09/05/18 18:36 98.6 108 21 128/66 100 Room Air 09/05/18 18:30 102.3 110 33 132/54 95 Nasal Cannula 2.0 09/05/18 18:17 108 21 128/66 100 09/05/18 17:47 98.6 117 30 139/82 100 Room Air 09/05/18 16:58 98.6 119 24 137/117 100 Room Air 09/05/18 15:39 98.6 102 23 127/74 98 Room Air 09/05/18 13:47 98 21 Room Air 09/05/18 13:46 98 21 127/65 98 Room Air 09/05/18 13:05 98.6 76 18 122/65 98 Room Air Status: awake Condition: improving HEENT: atraumatic, normocephalic Lungs: clear Heart: HR/BP stable Abdomen: soft, non-tender, active bowel sounds Extremities: no C/C/E Micro: Microbiology Date/Time Source Procedure Growth Status 09/05/18 14:00 Urine,Clean Catch Urine Culture - Preliminary Gram Negative Bacillus 1 Resulted Accucheck: 100 Blood Sugars: BS controlled Critical Care - Subjective ROS Limited/Unobtainable: Yes ICU Day: 2 Interval Events: Getting IVF, Cr stable, CK downtrending, Trop downtrending, D-dimer elevated No distress Condition: improving IV Access: peripheral EKG Rhythm: Sinus Rhythm Sputum Amount: None Fluids: NS@125 Drips: N/A I&O: Intake and Output 09/05/18 09/06/18 19:00 07:00 Intake Total 180 ml 2250 ml Output Total 850 ml 240 ml Balance -670 ml 2010 ml Intake Oral 750 ml IV Total 180 ml 1500 ml Output Urine Total 850 ml 240 ml Subjective: No F/C/CP/SOB/N/V/D/C/abd pain or urinary complaints + knee pain R CXR: NAD Labs: Laboratory Tests Test 09/05/18 14:00 09/05/18 14:13 09/05/18 19:30 09/06/18 03:00 Urine Color Pale yellow Urine Appearance Turbid Urine pH 5 (4.5-8.0) Urine Specific [place] 1.015 (1.005-1.035) Urine Protein 3+ (NEGATIVE) H Urine Glucose (UA) Negative (NEGATIVE) Urine Ketones 1+ (NEGATIVE) H Urine Blood 4+ (NEGATIVE) H Urine Nitrite Negative (NEGATIVE) Urine Bilirubin Negative (NEGATIVE) Urine Urobilinogen Normal MG/DL (0.0-1.0) Urine Leukocyte Esterase 3+ (NEGATIVE) H Urine RBC 2-4 /HPF (0 - 2) H Urine WBC 60-80 /HPF (0 - 2) H Urine Squamous Epithelial Cells Few /LPF (NONE/OCC) Urine Bacteria Many /HPF (NONE) H White Blood Count 10.3 K/UL (4.8-10.8) 11.1 K/UL (4.8-10.8) H Red Blood Count 3.06 M/UL (4.20-5.40) L 2.94 M/UL (4.20-5.40) L Hemoglobin 10.7 G/DL (12.0-16.0) L 10.4 G/DL (12.0-16.0) L Hematocrit 33.6 % (37.0-47.0) L 31.5 % (37.0-47.0) L Mean Corpuscular Volume 110 FL (80-99) H 107 FL (80-99) H Mean Corpuscular Hemoglobin 35.0 PG (27.0-31.0) H 35.3 PG (27.0-31.0) H Mean Corpuscular Hemoglobin Concent 31.9 G/DL (32.0-36.0) L 33.0 G/DL (32.0-36.0) Red Cell Distribution Width 13.6 % (11.6-14.8) 13.4 % (11.6-14.8) Platelet Count 146 K/UL (150-450) L 142 K/UL (150-450) L Mean Platelet Volume 7.2 FL (6.5-10.1) 7.1 FL (6.5-10.1) Neutrophils (%) (Auto) % (45.0-75.0) % (45.0-75.0) Lymphocytes (%) (Auto) % (20.0-45.0) % (20.0-45.0) Monocytes (%) (Auto) % (1.0-10.0) % (1.0-10.0) Eosinophils (%) (Auto) % (0.0-3.0) % (0.0-3.0) Basophils (%) (Auto) % (0.0-2.0) % (0.0-2.0) Differential Total Cells Counted 100 Neutrophils % (Manual) 72 % (45-75) Lymphocytes % (Manual) 5 % (20-45) L Monocytes % (Manual) 7 % (1-10) Eosinophils % (Manual) 0 % (0-3) Basophils % (Manual) 0 % (0-2) Band Neutrophils 16 % (0-8) H Platelet Estimate Decreased L Platelet Morphology Normal Hypochromasia 1+ Anisocytosis 1+ Prothrombin Time 10.3 SEC (9.30-11.50) Prothromb Time International Ratio 1.0 (0.9-1.1) Activated Partial Thromboplast Time 31 SEC (23-33) D-Dimer 4.93 mg/L FEU (0.00-0.49) H Sodium Level 140 MMOL/L (136-145) 143 MMOL/L (136-145) Potassium Level 5.7 MMOL/L (3.5-5.1) H 5.3 MMOL/L (3.5-5.1) H Chloride Level 108 MMOL/L (98-107) H 111 MMOL/L (98-107) H Carbon Dioxide Level 18 MMOL/L (21-32) L 17 MMOL/L (21-32) L Anion Gap 14 mmol/L (5-15) 15 mmol/L (5-15) Blood Urea Nitrogen 66 mg/dL (7-18) H 69 mg/dL (7-18) H Creatinine 2.6 MG/DL (0.55-1.30) H 2.6 MG/DL (0.55-1.30) H Estimat Glomerular Filtration Rate mL/min (>60) mL/min (>60) Glucose Level 181 MG/DL (74-106) H 103 MG/DL (74-106) Calcium Level 9.0 MG/DL (8.5-10.1) 8.5 MG/DL (8.5-10.1) Total Bilirubin 0.4 MG/DL (0.2-1.0) 0.2 MG/DL (0.2-1.0) Aspartate Amino Transf (AST/SGOT) 299 U/L (15-37) H 215 U/L (15-37) H Alanine Aminotransferase (ALT/SGPT) 98 U/L (12-78) H 88 U/L (12-78) H Alkaline Phosphatase 72 U/L (46-116) 67 U/L (46-116) Total Creatine Kinase 7665 U/L (26-308) H 5642 U/L (26-308) H 3854 U/L (26-308) H Troponin I 28.022 ng/mL (0.000-0.056) 28.796 ng/mL (0.000-0.056) 15.616 ng/mL (0.000-0.056) Total Protein 7.1 G/DL (6.4-8.2) 6.6 G/DL (6.4-8.2) Albumin 3.1 G/DL (3.4-5.0) L 2.8 G/DL (3.4-5.0) L Globulin 4.0 g/dL 3.8 g/dL Albumin/Globulin Ratio 0.8 (1.0-2.7) L 0.7 (1.0-2.7) L C-Reactive Protein, Quantitative > 70.0 mg/dL (0.00-0.90) H Hemoglobin A1c 5.9 % (4.3-6.0) Lactic Acid Level 0.70 mmol/L (0.4-2.0) Uric Acid 9.4 MG/DL (2.6-7.2) H Phosphorus Level 5.5 MG/DL (2.5-4.9) H Magnesium Level 1.7 MG/DL (1.8-2.4) L Ferritin 788 NG/ML (8-388) H Gamma Glutamyl Transpeptidase 18 U/L (5-85) Pro-B-Type Natriuretic Peptide 14266 pg/mL (0-125) H Triglycerides Level 126 MG/DL (30-150) Cholesterol Level 133 MG/DL (< 200) LDL Cholesterol 69 mg/dL (<100) HDL Cholesterol 40 MG/DL (40-60) Cholesterol/HDL Ratio 3.3 (3.3-4.4) Vitamin B12 Level 1233 PG/ML (193-986) H Folate 72.6 NG/ML (8.6-58.9) H Thyroid Stimulating Hormone (TSH) 0.473 uiU/mL (0.358-3.740) Free Thyroxine 1.10 NG/DL (0.76-1.46) Test 09/06/18 04:30 Urine Eosinophils Pending Urine Random Sodium 26 mmol/L (20-110) Mushtaq Copeland MD Sep 06, 2018 09:01
[2018-09-06] MEDS ORDERED: Vancomycin 1gm/D5W 275ml IVPB SCH ×2 (10:00)
[2018-09-06] MEDS ORDERED: Heparin 25,000u/D5W 500ml 500 ML IV SCH (10:00)
--- NOTE | 2018-09-06 10:23 | Cardiac Electrophysiology PN ---
Assessment/Plan Assessment/Plan 1. Non-ST elevation myocardial infarction with troponin of 28. The patient does not have any chest pain and could be due to rhabdomyolysis and renal failure The patient's daughter made the patient DNR and DNI, but agrees with full medical therapy, but does not want cardiac catheterization. Troponin down to 15. Continue aspirin, beta-millie, and statin. Echocardiogram EF 65% DC full anticoagulation 2. Hypertension. Keep the patient on beta-millie at this time. 3. Hyperlipidemia, on Lipitor. 4. Rhabdomyolysis. CPK 7600 to 3500 On IV fluid. 5. Renal failure, creatinine 2.6. Subjective Subjective In ICU comfortable in NAD. No CP. Objective Last 24 Hour Vital Signs Date Time Temp Pulse Resp B/P (MAP) Pulse Ox O2 Delivery O2 Flow Rate FiO2 09/06/18 09:00 94 20 116/52 100 Nasal Cannula 2.0 09/06/18 08:31 103 111/57 09/06/18 08:00 Nasal Cannula 2.0 09/06/18 08:00 98.6 100 25 129/49 100 Nasal Cannula 2.0 09/06/18 07:00 95 16 116/52 100 Nasal Cannula 2.0 09/06/18 06:00 90 15 123/49 100 Nasal Cannula 2.0 09/06/18 05:00 87 20 134/114 100 Nasal Cannula 2.0 09/06/18 04:00 2.0 09/06/18 04:00 88 09/06/18 04:00 99.6 89 16 114/65 100 Nasal Cannula 2.0 09/06/18 04:00 Nasal Cannula 2.0 09/06/18 03:00 88 14 109/50 100 Nasal Cannula 2.0 09/06/18 02:00 79 16 115/95 100 Nasal Cannula 2.0 09/06/18 01:00 69 18 110/49 100 Nasal Cannula 2.0 09/06/18 00:00 98.5 71 22 101/48 100 Nasal Cannula 2.0 09/06/18 00:00 Nasal Cannula 2.0 09/06/18 00:00 2.0 09/06/18 00:00 79 09/05/18 23:00 77 14 105/42 100 Nasal Cannula 2.0 09/05/18 22:00 80 15 90/50 100 Nasal Cannula 2.0 09/05/18 21:00 96 26 107/53 100 Nasal Cannula 2.0 09/05/18 20:46 102 118/53 09/05/18 20:23 99.8 09/05/18 20:00 2.0 09/05/18 20:00 104 09/05/18 20:00 99.9 103 23 118/53 97 Nasal Cannula 2.0 09/05/18 20:00 Nasal Cannula 2.0 09/05/18 19:00 106 28 125/59 97 Nasal Cannula 2.0 09/05/18 18:48 Nasal Cannula 2.0 09/05/18 18:36 98.6 108 21 128/66 100 Room Air 09/05/18 18:30 102.3 110 33 132/54 95 Nasal Cannula 2.0 09/05/18 18:17 108 21 128/66 100 09/05/18 17:47 98.6 117 30 139/82 100 Room Air 09/05/18 16:58 98.6 119 24 137/117 100 Room Air 09/05/18 15:39 98.6 102 23 127/74 98 Room Air 09/05/18 13:47 98 21 Room Air 09/05/18 13:46 98 21 127/65 98 Room Air 09/05/18 13:05 98.6 76 18 122/65 98 Room Air Intake and Output 09/05/18 09/06/18 19:00 07:00 Intake Total 180 ml 2250 ml Output Total 850 ml 240 ml Balance -670 ml 2010 ml Intake Oral 750 ml IV Total 180 ml 1500 ml Output Urine Total 850 ml 240 ml Laboratory Tests Test 09/05/18 14:00 09/05/18 14:13 09/05/18 19:30 09/06/18 03:00 Urine Color Pale yellow Urine Appearance Turbid Urine pH 5 (4.5-8.0) Urine Specific [place] 1.015 (1.005-1.035) Urine Protein 3+ (NEGATIVE) H Urine Glucose (UA) Negative (NEGATIVE) Urine Ketones 1+ (NEGATIVE) H Urine Blood 4+ (NEGATIVE) H Urine Nitrite Negative (NEGATIVE) Urine Bilirubin Negative (NEGATIVE) Urine Urobilinogen Normal MG/DL (0.0-1.0) Urine Leukocyte Esterase 3+ (NEGATIVE) H Urine RBC 2-4 /HPF (0 - 2) H Urine WBC 60-80 /HPF (0 - 2) H Urine Squamous Epithelial Cells Few /LPF (NONE/OCC) Urine Bacteria Many /HPF (NONE) H White Blood Count 10.3 K/UL (4.8-10.8) 11.1 K/UL (4.8-10.8) H Red Blood Count 3.06 M/UL (4.20-5.40) L 2.94 M/UL (4.20-5.40) L Hemoglobin 10.7 G/DL (12.0-16.0) L 10.4 G/DL (12.0-16.0) L Hematocrit 33.6 % (37.0-47.0) L 31.5 % (37.0-47.0) L Mean Corpuscular Volume 110 FL (80-99) H 107 FL (80-99) H Mean Corpuscular Hemoglobin 35.0 PG (27.0-31.0) H 35.3 PG (27.0-31.0) H Mean Corpuscular Hemoglobin Concent 31.9 G/DL (32.0-36.0) L 33.0 G/DL (32.0-36.0) Red Cell Distribution Width 13.6 % (11.6-14.8) 13.4 % (11.6-14.8) Platelet Count 146 K/UL (150-450) L 142 K/UL (150-450) L Mean Platelet Volume 7.2 FL (6.5-10.1) 7.1 FL (6.5-10.1) Neutrophils (%) (Auto) % (45.0-75.0) % (45.0-75.0) Lymphocytes (%) (Auto) % (20.0-45.0) % (20.0-45.0) Monocytes (%) (Auto) % (1.0-10.0) % (1.0-10.0) Eosinophils (%) (Auto) % (0.0-3.0) % (0.0-3.0) Basophils (%) (Auto) % (0.0-2.0) % (0.0-2.0) Differential Total Cells Counted 100 Neutrophils % (Manual) 72 % (45-75) Lymphocytes % (Manual) 5 % (20-45) L Monocytes % (Manual) 7 % (1-10) Eosinophils % (Manual) 0 % (0-3) Basophils % (Manual) 0 % (0-2) Band Neutrophils 16 % (0-8) H Platelet Estimate Decreased L Platelet Morphology Normal Hypochromasia 1+ Anisocytosis 1+ Prothrombin Time 10.3 SEC (9.30-11.50) Prothromb Time International Ratio 1.0 (0.9-1.1) Activated Partial Thromboplast Time 31 SEC (23-33) D-Dimer 4.93 mg/L FEU (0.00-0.49) H Sodium Level 140 MMOL/L (136-145) 143 MMOL/L (136-145) Potassium Level 5.7 MMOL/L (3.5-5.1) H 5.3 MMOL/L (3.5-5.1) H Chloride Level 108 MMOL/L (98-107) H 111 MMOL/L (98-107) H Carbon Dioxide Level 18 MMOL/L (21-32) L 17 MMOL/L (21-32) L Anion Gap 14 mmol/L (5-15) 15 mmol/L (5-15) Blood Urea Nitrogen 66 mg/dL (7-18) H 69 mg/dL (7-18) H Creatinine 2.6 MG/DL (0.55-1.30) H 2.6 MG/DL (0.55-1.30) H Estimat Glomerular Filtration Rate mL/min (>60) mL/min (>60) Glucose Level 181 MG/DL (74-106) H 103 MG/DL (74-106) Calcium Level 9.0 MG/DL (8.5-10.1) 8.5 MG/DL (8.5-10.1) Total Bilirubin 0.4 MG/DL (0.2-1.0) 0.2 MG/DL (0.2-1.0) Aspartate Amino Transf (AST/SGOT) 299 U/L (15-37) H 215 U/L (15-37) H Alanine Aminotransferase (ALT/SGPT) 98 U/L (12-78) H 88 U/L (12-78) H Alkaline Phosphatase 72 U/L (46-116) 67 U/L (46-116) Total Creatine Kinase 7665 U/L (26-308) H 5642 U/L (26-308) H 3854 U/L (26-308) H Troponin I 28.022 ng/mL (0.000-0.056) 28.796 ng/mL (0.000-0.056) 15.616 ng/mL (0.000-0.056) Total Protein 7.1 G/DL (6.4-8.2) 6.6 G/DL (6.4-8.2) Albumin 3.1 G/DL (3.4-5.0) L 2.8 G/DL (3.4-5.0) L Globulin 4.0 g/dL 3.8 g/dL Albumin/Globulin Ratio 0.8 (1.0-2.7) L 0.7 (1.0-2.7) L C-Reactive Protein, Quantitative > 70.0 mg/dL (0.00-0.90) H Hemoglobin A1c 5.9 % (4.3-6.0) Lactic Acid Level 0.70 mmol/L (0.4-2.0) Uric Acid 9.4 MG/DL (2.6-7.2) H Phosphorus Level 5.5 MG/DL (2.5-4.9) H Magnesium Level 1.7 MG/DL (1.8-2.4) L Ferritin 788 NG/ML (8-388) H Gamma Glutamyl Transpeptidase 18 U/L (5-85) Pro-B-Type Natriuretic Peptide 63345 pg/mL (0-125) H Triglycerides Level 126 MG/DL (30-150) Cholesterol Level 133 MG/DL (< 200) LDL Cholesterol 69 mg/dL (<100) HDL Cholesterol 40 MG/DL (40-60) Cholesterol/HDL Ratio 3.3 (3.3-4.4) Vitamin B12 Level 1233 PG/ML (193-986) H Folate 72.6 NG/ML (8.6-58.9) H Thyroid Stimulating Hormone (TSH) 0.473 uiU/mL (0.358-3.740) Free Thyroxine 1.10 NG/DL (0.76-1.46) Test 09/06/18 04:30 Urine Eosinophils Pending Urine Random Sodium 26 mmol/L (20-110) Microbiology Date/Time Source Procedure Growth Status 09/05/18 14:00 Urine,Clean Catch Urine Culture - Preliminary Gram Negative Bacillus 1 Resulted Objective HEAD AND NECK: Shows no JVD. LUNGS: Shows coarse rhonchi. CARDIOVASCULAR: Shows regular S1 and S2 with no gallop or murmur. ABDOMEN: Soft. EXTREMITIES: No pitting edema. Kevin Ruiz MD Sep 06, 2018 10:23
--- NOTE | 2018-09-06 11:00 | NUR ---
NURSE NOTES: Dr. Patterson in facility, aware of BMP results, potassium 5.3, Kayexalate was given last night no BM yet, patient urine output has been 10-25 ml/hr, on IV fluids. No new orders from MD at this time. MD assessed right knee. Will continue to monitor.
[2018-09-06 11:27] LABS: HEMATOCRIT 31.4 % (37.0-47.0); MEAN CORPUSCULAR VOLUME 110 FL (80-99); PLATELET COUNT 139 K/UL (150-450); RED BLOOD COUNT 2.84 M/UL (4.20-5.40); RED CELL DISTRIBUTION WIDTH 13.6 % (11.6-14.8)
[2018-09-06 12:05] LABS: % IRON SATURATION 15 % (15-50); IRON 18 ug/dL (50-175); TOTAL IRON BINDING CAPACITY 124 ug/dL (250-450)
--- NOTE | 2018-09-06 12:15 | NUR ---
NURSE NOTES: Patient with complains of pain to right knee especially with repositioning in bed. Will give PRN [place] as ordered.
[2018-09-06] MEDS: Norco 5mg/325mg tab ORAL PRN ×2 (12:17→19:56)
--- NOTE | 2018-09-06 12:40 | NUR ---
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 98.6 HR 76 RR 18 B/P 122/65 AST 299 ALT 98 TROP 28.02 BUN 66 CR 2.6 K 5.7 D-DIMER 4.93 TCK 7665 UA+PROTEIN,BLOOD,LEUKOCYTE ESTERASE,RBC,WBC,SQUQMOUS EPITH X-RAY HIP= NO FX CXR= NO ACUTE PROCESS RIGHT HIP CT=NO FX IS: KAYEXALATE PO LOVENOX SUBC ROCEPHIN IV ASA PO ADMITTED TO ICU ICU STATUS DCP RETURN HOME
--- NOTE | 2018-09-06 13:30 | NUR ---
NURSE NOTES: Patient visited by Daughter and . No complains of severe pain at this time. Positioned comfortably in bed.
[2018-09-06] MEDS: cefTRIAXone 1 GM in NS 55 ML IVPB SCH (14:36)
--- NOTE | 2018-09-06 15:15 | General Progress Note ---
Assessment/Plan Assessment/Plan #Fall #Rhabdomyolysis, improved CK level #HAIR #Hyperkalemia, impvoed #Metabolic acidosis -continue ICU level of care -Continue IV fluids -monitor CK levels -avoid nephrotoxic meds -monitor daily BMP #Possible NSTEMI -Cardiology following -Anticoagulation stoped per Cardiology recs -continue ASA,Statin, B-millie -TTE pending -Cardiac monitoring #Right knee swelling and pain #Elevated CRP -started on vancomycin for possible soft tissue infection -continue ceftriaxone -ID and Ortho consulted #Possible UTI --start ceftriaxone -follow up urine culture #Type 2 DM -hold Actos with HAIR -lispro SS #HTN -hold Diovan and Lasix with HAIR -monitor BP VTE PPx Lovenox DNR 70 minutes was spent in caring for the patient which includes coordination of care with nursing, furniture rental consultant MD, 36 minues was spent in direct face to face time with patient and family Subjective Date patient seen: Sep 06, 2018 Time patient seen: 08:00 Constitutional: Denies: chills, fever HEENT: Denies: eye pain Cardiovascular: Denies: chest pain, edema Respiratory: Denies: cough, orthopnea Genitourinary: Denies: burning, discharge Endocrine: Denies: excessive sweating Allergies: Coded Allergies: No Known Allergies (Verified , 10/20/11) Objective Last 24 Hour Vital Signs Date Time Temp Pulse Resp B/P (MAP) Pulse Ox O2 Delivery O2 Flow Rate FiO2 09/06/18 13:00 98.1 80 23 121/74 100 Nasal Cannula 2.0 09/06/18 12:00 80 23 90/35 100 Nasal Cannula 2.0 09/06/18 12:00 Nasal Cannula 2.0 09/06/18 12:00 79 09/06/18 11:00 81 23 85/71 100 Nasal Cannula 2.0 09/06/18 10:00 84 25 115/48 100 Nasal Cannula 2.0 09/06/18 09:00 94 20 116/52 100 Nasal Cannula 2.0 09/06/18 08:31 103 111/57 09/06/18 08:00 Nasal Cannula 2.0 09/06/18 08:00 98.6 100 25 129/49 100 Nasal Cannula 2.0 09/06/18 08:00 101 09/06/18 07:00 95 16 116/52 100 Nasal Cannula 2.0 09/06/18 06:00 90 15 123/49 100 Nasal Cannula 2.0 09/06/18 05:00 87 20 134/114 100 Nasal Cannula 2.0 09/06/18 04:00 2.0 09/06/18 04:00 88 09/06/18 04:00 99.6 89 16 114/65 100 Nasal Cannula 2.0 09/06/18 04:00 Nasal Cannula 2.0 09/06/18 03:00 88 14 109/50 100 Nasal Cannula 2.0 09/06/18 02:00 79 16 115/95 100 Nasal Cannula 2.0 09/06/18 01:00 69 18 110/49 100 Nasal Cannula 2.0 09/06/18 00:00 98.5 71 22 101/48 100 Nasal Cannula 2.0 09/06/18 00:00 Nasal Cannula 2.0 09/06/18 00:00 2.0 09/06/18 00:00 79 09/05/18 23:00 77 14 105/42 100 Nasal Cannula 2.0 09/05/18 22:00 80 15 90/50 100 Nasal Cannula 2.0 09/05/18 21:00 96 26 107/53 100 Nasal Cannula 2.0 09/05/18 20:46 102 118/53 09/05/18 20:23 99.8 09/05/18 20:00 2.0 09/05/18 20:00 104 09/05/18 20:00 99.9 103 23 118/53 97 Nasal Cannula 2.0 09/05/18 20:00 Nasal Cannula 2.0 09/05/18 19:00 106 28 125/59 97 Nasal Cannula 2.0 09/05/18 18:48 Nasal Cannula 2.0 09/05/18 18:36 98.6 108 21 128/66 100 Room Air 09/05/18 18:30 102.3 110 33 132/54 95 Nasal Cannula 2.0 09/05/18 18:17 108 21 128/66 100 09/05/18 17:47 98.6 117 30 139/82 100 Room Air 09/05/18 16:58 98.6 119 24 137/117 100 Room Air 09/05/18 15:39 98.6 102 23 127/74 98 Room Air Intake and Output 09/05/18 09/06/18 19:00 07:00 Intake Total 180 ml 2250 ml Output Total 850 ml 240 ml Balance -670 ml 2010 ml Intake Oral 750 ml IV Total 180 ml 1500 ml Output Urine Total 850 ml 240 ml Laboratory Tests 09/05/18 19:30: Total Creatine Kinase 5642H, Troponin I 28.796H, C-Reactive Protein, Quantitative > 70.0H 09/06/18 03:00: Total Creatine Kinase 3854H, Troponin I 15.616H, White Blood Count 11.1H, Red Blood Count 2.94L, Hemoglobin 10.4L, Hematocrit 31.5L, Mean Corpuscular Volume 107H, Mean Corpuscular Hemoglobin 35.3H, Mean Corpuscular Hemoglobin Concent 33.0, Red Cell Distribution Width 13.4, Platelet Count 142L, Mean Platelet Volume 7.1, Neutrophils (%) (Auto) , Lymphocytes (%) (Auto) , Monocytes (%) ( Auto) , Eosinophils (%) (Auto) , Basophils (%) (Auto) , Sodium Level 143, Potassium Level 5.3H, Chloride Level 111H, Carbon Dioxide Level 17L, Anion Gap 15, Blood Urea Nitrogen 69H, Creatinine 2.6H, Estimat Glomerular Filtration Rate , Glucose Level 103, Hemoglobin A1c 5.9, Lactic Acid Level 0.70, Uric Acid 9.4H, Calcium Level 8.5, Phosphorus Level 5.5H, Magnesium Level 1.7L, Ferritin 788H, Total Bilirubin 0.2, Gamma Glutamyl Transpeptidase 18, Aspartate Amino Transf (AST/SGOT) 215H, Alanine Aminotransferase (ALT/SGPT) 88H, Alkaline Phosphatase 67, Pro-B-Type Natriuretic Peptide 93857D, Total Protein 6.6, Albumin 2.8L, Globulin 3.8, Albumin/Globulin Ratio 0.7L, Triglycerides Level 126 , Cholesterol Level 133, LDL Cholesterol 69, HDL Cholesterol 40, Cholesterol/ HDL Ratio 3.3, Vitamin B12 Level 1233H, Folate 72.6H, Thyroid Stimulating Hormone (TSH) 0.473, Free Thyroxine 1.10 09/06/18 04:30: Urine Eosinophils None seen, Urine Random Sodium 26 09/06/18 10:40: White Blood Count 10.0, Red Blood Count 2.84L, Hemoglobin 10.0L, Hematocrit 31.4L, Mean Corpuscular Volume 110H, Mean Corpuscular Hemoglobin 35.1H, Mean Corpuscular Hemoglobin Concent 31.9L, Red Cell Distribution Width 13.6, Platelet Count 139L, Mean Platelet Volume 6.7, Neutrophils (%) (Auto) , Lymphocytes (%) (Auto) , Monocytes (%) (Auto) , Eosinophils (%) (Auto) , Basophils (%) (Auto) , Differential Total Cells Counted 100, Neutrophils % ( Manual) 67, Lymphocytes % (Manual) 3L, Monocytes % (Manual) 4, Eosinophils % ( Manual) 0, Basophils % (Manual) 0, Band Neutrophils 26H, Platelet Estimate DecreasedL, Platelet Morphology Normal, Macrocytosis 2+, Iron Level 18L, Total Iron Binding Capacity 124L, Percent Iron Saturation 15, Unsaturated Iron Binding 106L Height (Feet): 5 Height (Inches): 1.00 Weight (Pounds): 145 General Appearance: no apparent distress, alert EENT: normal ENT inspection Neck: non-tender, normal alignment Cardiovascular: normal peripheral pulses, normal rate Respiratory/Chest: chest wall non-tender, lungs clear Abdomen: normal bowel sounds, non tender Extremities: other - Right knee swelling and pain Neurologic: health underwriter II-XII grossly normal, no motor/sensory deficits Caden Kelsey MD Sep 06, 2018 15:15
--- NOTE | 2018-09-06 15:54 | Diagnostic Imaging Report ---
APPROVED REPORT CPT Code: 11644 Present Symptoms Lower Extremity Pain: Bilateral Shortness of breath BILATERAL: Imaging reveals a patent deep venous system bilaterally. There is no evidence of thrombus within the femoral, popliteal or tibial segments. The greater saphenous veins are also within normal limits. Doppler indicates normal spontaneous flow within these segments.
--- NOTE | 2018-09-06 16:00 | NUR ---
NURSE NOTES: Patient with small formed BM noted, perineal care provide. Patient positioned patient for comfort. Lidocaine patches remains in place to bilateral knees.
--- NOTE | 2018-09-06 17:20 | Nephrology Progress Note ---
Assessment/Plan Problem List: (1) Renal failure (ARF), acute on chronic (2) Diabetic nephropathy (3) Rhabdomyolysis (4) NSTEMI (non-ST elevated myocardial infarction) Assessment Acute Renal Failure- possibly superimposed on chronic Fall, Rhabdo High K Myocardial injury ( elevated Troponin) UTI DM with Proteinuria: Likely Diabetic Nephropathy HTN right knee swelling ? Arthritis Plan hydrate urine studies gastric protection cardiology eval 2D echo monitor CPK antibiotics per orders Subjective ROS Limited/Unobtainable: No Constitutional: Reports: malaise, weakness, other - on O2 Objective Objective Last 24 Hour Vital Signs Date Time Temp Pulse Resp B/P (MAP) Pulse Ox O2 Delivery O2 Flow Rate FiO2 09/06/18 16:00 96 21 114/51 100 Nasal Cannula 2.0 09/06/18 16:00 Nasal Cannula 2.0 09/06/18 15:00 84 21 106/51 100 Nasal Cannula 2.0 09/06/18 14:00 79 21 112/47 100 Nasal Cannula 2.0 09/06/18 13:00 98.1 80 23 121/74 100 Nasal Cannula 2.0 09/06/18 12:00 80 23 90/35 100 Nasal Cannula 2.0 09/06/18 12:00 Nasal Cannula 2.0 09/06/18 12:00 79 09/06/18 11:00 81 23 85/71 100 Nasal Cannula 2.0 09/06/18 10:00 84 25 115/48 100 Nasal Cannula 2.0 09/06/18 09:00 94 20 116/52 100 Nasal Cannula 2.0 09/06/18 08:31 103 111/57 09/06/18 08:00 Nasal Cannula 2.0 09/06/18 08:00 98.6 100 25 129/49 100 Nasal Cannula 2.0 09/06/18 08:00 101 09/06/18 07:00 95 16 116/52 100 Nasal Cannula 2.0 09/06/18 06:00 90 15 123/49 100 Nasal Cannula 2.0 09/06/18 05:00 87 20 134/114 100 Nasal Cannula 2.0 09/06/18 04:00 2.0 09/06/18 04:00 88 09/06/18 04:00 99.6 89 16 114/65 100 Nasal Cannula 2.0 09/06/18 04:00 Nasal Cannula 2.0 09/06/18 03:00 88 14 109/50 100 Nasal Cannula 2.0 09/06/18 02:00 79 16 115/95 100 Nasal Cannula 2.0 09/06/18 01:00 69 18 110/49 100 Nasal Cannula 2.0 09/06/18 00:00 98.5 71 22 101/48 100 Nasal Cannula 2.0 09/06/18 00:00 Nasal Cannula 2.0 09/06/18 00:00 2.0 09/06/18 00:00 79 09/05/18 23:00 77 14 105/42 100 Nasal Cannula 2.0 09/05/18 22:00 80 15 90/50 100 Nasal Cannula 2.0 09/05/18 21:00 96 26 107/53 100 Nasal Cannula 2.0 09/05/18 20:46 102 118/53 09/05/18 20:23 99.8 09/05/18 20:00 2.0 09/05/18 20:00 104 09/05/18 20:00 99.9 103 23 118/53 97 Nasal Cannula 2.0 09/05/18 20:00 Nasal Cannula 2.0 09/05/18 19:00 106 28 125/59 97 Nasal Cannula 2.0 09/05/18 18:48 Nasal Cannula 2.0 09/05/18 18:36 98.6 108 21 128/66 100 Room Air 09/05/18 18:30 102.3 110 33 132/54 95 Nasal Cannula 2.0 09/05/18 18:17 108 21 128/66 100 09/05/18 17:47 98.6 117 30 139/82 100 Room Air Intake and Output 09/05/18 09/06/18 19:00 07:00 Intake Total 180 ml 2250 ml Output Total 850 ml 240 ml Balance -670 ml 2010 ml Intake Oral 750 ml IV Total 180 ml 1500 ml Output Urine Total 850 ml 240 ml Laboratory Tests 09/05/18 19:30: Total Creatine Kinase 5642H, Troponin I 28.796H, C-Reactive Protein, Quantitative > 70.0H 09/06/18 03:00: Total Creatine Kinase 3854H, Troponin I 15.616H, White Blood Count 11.1H, Red Blood Count 2.94L, Hemoglobin 10.4L, Hematocrit 31.5L, Mean Corpuscular Volume 107H, Mean Corpuscular Hemoglobin 35.3H, Mean Corpuscular Hemoglobin Concent 33.0, Red Cell Distribution Width 13.4, Platelet Count 142L, Mean Platelet Volume 7.1, Neutrophils (%) (Auto) , Lymphocytes (%) (Auto) , Monocytes (%) ( Auto) , Eosinophils (%) (Auto) , Basophils (%) (Auto) , Sodium Level 143, Potassium Level 5.3H, Chloride Level 111H, Carbon Dioxide Level 17L, Anion Gap 15, Blood Urea Nitrogen 69H, Creatinine 2.6H, Estimat Glomerular Filtration Rate , Glucose Level 103, Hemoglobin A1c 5.9, Lactic Acid Level 0.70, Uric Acid 9.4H, Calcium Level 8.5, Phosphorus Level 5.5H, Magnesium Level 1.7L, Ferritin 788H, Total Bilirubin 0.2, Gamma Glutamyl Transpeptidase 18, Aspartate Amino Transf (AST/SGOT) 215H, Alanine Aminotransferase (ALT/SGPT) 88H, Alkaline Phosphatase 67, Pro-B-Type Natriuretic Peptide 07240D, Total Protein 6.6, Albumin 2.8L, Globulin 3.8, Albumin/Globulin Ratio 0.7L, Triglycerides Level 126 , Cholesterol Level 133, LDL Cholesterol 69, HDL Cholesterol 40, Cholesterol/ HDL Ratio 3.3, Vitamin B12 Level 1233H, Folate 72.6H, Thyroid Stimulating Hormone (TSH) 0.473, Free Thyroxine 1.10 09/06/18 04:30: Urine Eosinophils None seen, Urine Random Sodium 26 09/06/18 10:40: White Blood Count 10.0, Red Blood Count 2.84L, Hemoglobin 10.0L, Hematocrit 31.4L, Mean Corpuscular Volume 110H, Mean Corpuscular Hemoglobin 35.1H, Mean Corpuscular Hemoglobin Concent 31.9L, Red Cell Distribution Width 13.6, Platelet Count 139L, Mean Platelet Volume 6.7, Neutrophils (%) (Auto) , Lymphocytes (%) (Auto) , Monocytes (%) (Auto) , Eosinophils (%) (Auto) , Basophils (%) (Auto) , Differential Total Cells Counted 100, Neutrophils % ( Manual) 67, Lymphocytes % (Manual) 3L, Monocytes % (Manual) 4, Eosinophils % ( Manual) 0, Basophils % (Manual) 0, Band Neutrophils 26H, Platelet Estimate DecreasedL, Platelet Morphology Normal, Macrocytosis 2+, Iron Level 18L, Total Iron Binding Capacity 124L, Percent Iron Saturation 15, Unsaturated Iron Binding 106L Height (Feet): 5 Height (Inches): 1.00 Weight (Pounds): 145 Cardiovascular: normal rate Respiratory/Chest: decreased breath sounds Abdomen: distended, other - obese Erick Patterson MD Sep 06, 2018 17:20
--- NOTE | 2018-09-06 18:01 | Infectious Diseases Prog Note ---
Assessment/Plan Assessment/Plan Full consult dictated: A) 1) gram neg uti, sepsis, fevers, mild leukocytosis 2) ? right knee septic arthritis vs OA - per label drier thinks OA, note pending 3) pmh noted 4) allergies - nkda P) 1) rocephin and vancomycin 2) check cultures, labs 3) await full ortho consult 4) continue treatment per primary care team 5) thank you Subjective Allergies: Coded Allergies: No Known Allergies (Verified , 10/20/11) Objective Vital Signs Last 24 Hour Vital Signs Date Time Temp Pulse Resp B/P (MAP) Pulse Ox O2 Delivery O2 Flow Rate FiO2 09/06/18 16:00 96 21 114/51 100 Nasal Cannula 2.0 09/06/18 16:00 Nasal Cannula 2.0 09/06/18 15:00 84 21 106/51 100 Nasal Cannula 2.0 09/06/18 14:00 79 21 112/47 100 Nasal Cannula 2.0 09/06/18 13:00 98.1 80 23 121/74 100 Nasal Cannula 2.0 09/06/18 12:00 80 23 90/35 100 Nasal Cannula 2.0 09/06/18 12:00 Nasal Cannula 2.0 09/06/18 12:00 79 09/06/18 11:00 81 23 85/71 100 Nasal Cannula 2.0 09/06/18 10:00 84 25 115/48 100 Nasal Cannula 2.0 09/06/18 09:00 94 20 116/52 100 Nasal Cannula 2.0 09/06/18 08:31 103 111/57 09/06/18 08:00 Nasal Cannula 2.0 09/06/18 08:00 98.6 100 25 129/49 100 Nasal Cannula 2.0 09/06/18 08:00 101 09/06/18 07:00 95 16 116/52 100 Nasal Cannula 2.0 09/06/18 06:00 90 15 123/49 100 Nasal Cannula 2.0 09/06/18 05:00 87 20 134/114 100 Nasal Cannula 2.0 09/06/18 04:00 2.0 09/06/18 04:00 88 09/06/18 04:00 99.6 89 16 114/65 100 Nasal Cannula 2.0 09/06/18 04:00 Nasal Cannula 2.0 09/06/18 03:00 88 14 109/50 100 Nasal Cannula 2.0 09/06/18 02:00 79 16 115/95 100 Nasal Cannula 2.0 09/06/18 01:00 69 18 110/49 100 Nasal Cannula 2.0 09/06/18 00:00 98.5 71 22 101/48 100 Nasal Cannula 2.0 09/06/18 00:00 Nasal Cannula 2.0 09/06/18 00:00 2.0 09/06/18 00:00 79 09/05/18 23:00 77 14 105/42 100 Nasal Cannula 2.0 09/05/18 22:00 80 15 90/50 100 Nasal Cannula 2.0 09/05/18 21:00 96 26 107/53 100 Nasal Cannula 2.0 09/05/18 20:46 102 118/53 09/05/18 20:23 99.8 09/05/18 20:00 2.0 09/05/18 20:00 104 09/05/18 20:00 99.9 103 23 118/53 97 Nasal Cannula 2.0 09/05/18 20:00 Nasal Cannula 2.0 09/05/18 19:00 106 28 125/59 97 Nasal Cannula 2.0 09/05/18 18:48 Nasal Cannula 2.0 09/05/18 18:36 98.6 108 21 128/66 100 Room Air 09/05/18 18:30 102.3 110 33 132/54 95 Nasal Cannula 2.0 09/05/18 18:17 108 21 128/66 100 09/05/18 17:47 98.6 117 30 139/82 100 Room Air Height (Feet): 5 Height (Inches): 1.00 Weight (Pounds): 145 Microbiology Date/Time Source Procedure Growth Status 09/05/18 14:00 Urine,Clean Catch Urine Culture - Preliminary Gram Negative Bacillus 1 Resulted Laboratory Tests Test 09/05/18 19:30 09/06/18 03:00 09/06/18 04:30 09/06/18 10:40 Total Creatine Kinase 5642 U/L (26-308) H 3854 U/L (26-308) H Troponin I 28.796 ng/mL (0.000-0.056) 15.616 ng/mL (0.000-0.056) C-Reactive Protein, Quantitative > 70.0 mg/dL (0.00-0.90) H White Blood Count 11.1 K/UL (4.8-10.8) H 10.0 K/UL (4.8-10.8) Red Blood Count 2.94 M/UL (4.20-5.40) L 2.84 M/UL (4.20-5.40) L Hemoglobin 10.4 G/DL (12.0-16.0) L 10.0 G/DL (12.0-16.0) L Hematocrit 31.5 % (37.0-47.0) L 31.4 % (37.0-47.0) L Mean Corpuscular Volume 107 FL (80-99) H 110 FL (80-99) H Mean Corpuscular Hemoglobin 35.3 PG (27.0-31.0) H 35.1 PG (27.0-31.0) H Mean Corpuscular Hemoglobin Concent 33.0 G/DL (32.0-36.0) 31.9 G/DL (32.0-36.0) L Red Cell Distribution Width 13.4 % (11.6-14.8) 13.6 % (11.6-14.8) Platelet Count 142 K/UL (150-450) L 139 K/UL (150-450) L Mean Platelet Volume 7.1 FL (6.5-10.1) 6.7 FL (6.5-10.1) Neutrophils (%) (Auto) % (45.0-75.0) % (45.0-75.0) Lymphocytes (%) (Auto) % (20.0-45.0) % (20.0-45.0) Monocytes (%) (Auto) % (1.0-10.0) % (1.0-10.0) Eosinophils (%) (Auto) % (0.0-3.0) % (0.0-3.0) Basophils (%) (Auto) % (0.0-2.0) % (0.0-2.0) Sodium Level 143 MMOL/L (136-145) Potassium Level 5.3 MMOL/L (3.5-5.1) H Chloride Level 111 MMOL/L (98-107) H Carbon Dioxide Level 17 MMOL/L (21-32) L Anion Gap 15 mmol/L (5-15) Blood Urea Nitrogen 69 mg/dL (7-18) H Creatinine 2.6 MG/DL (0.55-1.30) H Estimat Glomerular Filtration Rate mL/min (>60) Glucose Level 103 MG/DL (74-106) Hemoglobin A1c 5.9 % (4.3-6.0) Lactic Acid Level 0.70 mmol/L (0.4-2.0) Uric Acid 9.4 MG/DL (2.6-7.2) H Calcium Level 8.5 MG/DL (8.5-10.1) Phosphorus Level 5.5 MG/DL (2.5-4.9) H Magnesium Level 1.7 MG/DL (1.8-2.4) L Ferritin 788 NG/ML (8-388) H Total Bilirubin 0.2 MG/DL (0.2-1.0) Gamma Glutamyl Transpeptidase 18 U/L (5-85) Aspartate Amino Transf (AST/SGOT) 215 U/L (15-37) H Alanine Aminotransferase (ALT/SGPT) 88 U/L (12-78) H Alkaline Phosphatase 67 U/L (46-116) Pro-B-Type Natriuretic Peptide 71038 pg/mL (0-125) H Total Protein 6.6 G/DL (6.4-8.2) Albumin 2.8 G/DL (3.4-5.0) L Globulin 3.8 g/dL Albumin/Globulin Ratio 0.7 (1.0-2.7) L Triglycerides Level 126 MG/DL (30-150) Cholesterol Level 133 MG/DL (< 200) LDL Cholesterol 69 mg/dL (<100) HDL Cholesterol 40 MG/DL (40-60) Cholesterol/HDL Ratio 3.3 (3.3-4.4) Vitamin B12 Level 1233 PG/ML (193-986) H Folate 72.6 NG/ML (8.6-58.9) H Thyroid Stimulating Hormone (TSH) 0.473 uiU/mL (0.358-3.740) Free Thyroxine 1.10 NG/DL (0.76-1.46) Urine Eosinophils None seen (NONE SEEN) Urine Random Sodium 26 mmol/L (20-110) Differential Total Cells Counted 100 Neutrophils % (Manual) 67 % (45-75) Lymphocytes % (Manual) 3 % (20-45) L Monocytes % (Manual) 4 % (1-10) Eosinophils % (Manual) 0 % (0-3) Basophils % (Manual) 0 % (0-2) Band Neutrophils 26 % (0-8) H Platelet Estimate Decreased L Platelet Morphology Normal Macrocytosis 2+ Iron Level 18 ug/dL (50-175) L Total Iron Binding Capacity 124 ug/dL (250-450) L Percent Iron Saturation 15 % (15-50) Unsaturated Iron Binding 106 ug/dL (112-346) L Current Medications Medications (Trade) Dose Ordered Sig/Nikita Route PRN Reason Start Time Stop Time Status Last Admin Dose Admin Acetaminophen (Tylenol) 650 mg Q6H PRN ORAL Mild Pain/Temp > 100.5 09/05/18 19:45 10/05/18 19:44 09/06/18 08:32 Acetaminophen/ Hydrocodone Bitart ([place] 5/325) 1 tab Q6H PRN ORAL Moderate Pain (Pain Scale 4-6) 09/06/18 09:45 09/13/18 09:44 09/06/18 12:17 Allopurinol (Allopurinol) 300 mg DAILY ORAL 09/07/18 09:00 10/07/18 08:59 Allopurinol (Allopurinol) 300 mg ONCE ORAL 09/06/18 17:29 09/06/18 18:29 Aspirin (Ecotrin) 81 mg DAILY ORAL 09/06/18 09:00 10/06/18 08:59 09/06/18 08:30 Atorvastatin Calcium (Lipitor) 10 mg QHS ORAL 09/05/18 20:00 10/05/18 19:59 09/05/18 19:53 Ceftriaxone Sodium 1 gm/ Sodium Chloride 55 ml @ 110 mls/hr Q24HRS IVPB 09/06/18 15:00 09/13/18 14:59 09/06/18 14:36 Dextrose (Dextrose 50%) 25 ml Q30M PRN IV Hypoglycemia 09/05/18 17:45 10/05/18 17:44 Dextrose (Dextrose 50%) 50 ml Q30M PRN IV Hypoglycemia 09/05/18 19:00 10/05/18 18:59 Heparin Sodium (Porcine) (Heparin 5000 units/ml) 5,000 units EVERY 12 HOURS SUBQ 09/06/18 21:00 10/06/18 20:59 Insulin Aspart (NovoLOG) BEFORE MEALS AND HS SUBQ 09/05/18 21:00 10/05/18 20:59 09/06/18 17:12 Lidocaine (Lidoderm 5% PATCH) 2 patch DAILY TDERMAL 09/06/18 14:00 10/06/18 13:59 09/06/18 14:36 Magnesium Sulfate 100 ml @ 100 mls/hr Q1H IVPB 09/06/18 18:00 09/06/18 19:59 Metoprolol Tartrate (Lopressor) 12.5 mg Q12HR ORAL 09/05/18 21:00 10/05/18 20:59 09/06/18 08:31 Pantoprazole (Protonix) 40 mg EVERY 12 HOURS IVP 09/05/18 21:00 10/05/18 20:59 09/06/18 08:29 Pregabalin (Lyrica) 50 mg BEDTIME ORAL 09/05/18 21:00 10/05/18 20:59 09/05/18 20:45 Sodium Chloride 1,000 ml @ 125 mls/hr Q8H IV 09/05/18 18:00 10/05/18 17:59 09/06/18 10:54 Vancomycin HCl (Vanco rx to dose) 1 ea DAILY PRN MISC Per rx protocol 09/06/18 08:15 10/06/18 08:14 Yuliet Tubbs MD Sep 06, 2018 18:01
--- NOTE | 2018-09-06 19:00 | NUR ---
NURSE NOTES: Patient received lying in bed, awake, alert. On nasal cannula 2 lpm, no acute respiratory distress, saturation at 100%. No complains of pain at this time. Pain felt with movement only, grimacing noted with movement to swollen right knee, warm to touch. Running IV fluid to right wrist, NS at 125 ml/hr, asymptomatic. Left hand IV, saline lock. Noted skin tear to right elbow and right knee, scabbed. Michelle catheter in place, draining to yellow urine with sediments noted. Sinus Rhythm on the monitor. Safety measures implemented, call light placed within reach. Will continue to monitor. Chandler case Mag 1G
--- NOTE | 2018-09-06 19:17 | NUR ---
HAND-OFF: Report given to ROQUE Hung.
[2018-09-06] MEDS: Lyrica 50mg cap ORAL SCH (19:59)
[2018-09-06] MEDS: Heparin 5000 units/ml inj SUBQ SCH (20:00)
--- NOTE | 2018-09-06 20:00 | NUR ---
NURSE NOTES: Patient turned and pillows adjusted, patient has temperature of 100.8F. Cooling measures provided. Tylenol 650mg PO provided. NAD at this time, patient remains alert and oriented.
--- NOTE | 2018-09-06 20:45 | Consultation ---
DATE OF CONSULTATION: 09/06/2018 INFECTIOUS DISEASE CONSULTATION CONSULTING PHYSICIAN: Yuliet Tubbs M.D. ATTENDING PHYSICIAN: Ty Guerrero M.D. REFERRING PHYSICIAN: Ty Guerrero M.D. REASON FOR CONSULTATION: Gram-negative urinary tract infection, pyelonephritis, also with sepsis, fevers, leukocytosis. Questionable right knee septic arthritis. CHIEF COMPLAINT: The patient's chief complaint coming into the hospital is altered mental status. HISTORY OF PRESENT ILLNESS: This is a very pleasant 88-year-old female, who is Spanish speaking. The patient presents to [facility] with altered mental status. The patient has been febrile to 102.3. The patient was started on vancomycin and Rocephin. The patient also had right knee pain. There was question if the patient has septic arthritis. In discussion with nursing staff, the patient was seen by Orthopedic Surgery and they felt it was more osteoarthritis and pain. I do not see the final ortho note however at this time. Infectious Disease consultation was requested for antibiotic management of this patient with urinary tract infection and pyelonephritis. The patient's urine culture with Gram-negative organisms. The patient is septic with SIRS criteria. MAR was noted. Orders were noted. Notes were reviewed. The patient is Spanish speaking and could not give any further history, did translate to some extent with nursing staff. REVIEW OF SYSTEMS: CONSTITUTIONAL: She seems like she has generalized fatigue, but is alert and responsive. She is not on pressors. She did have fever of over 102, was 102.3. Currently no chills. HEAD AND NECK: No head pain, neck pain. CARDIAC: No chest pain or pressure. GASTROINTESTINAL: No nausea, vomiting, or diarrhea. GENITOURINARY: The patient has a Michelle. PULMONARY: No congestion, shortness of breath, hemoptysis, or secretions. SKIN: No rash or itching noted. EXTREMITIES: She has right knee pain. NEUROLOGIC: No seizures. No rash or itching noted. Review of systems otherwise limited. She has generalized fatigue, weakness also, but no focal weakness. Also, she did come in with altered mental status. PAST MEDICAL HISTORY: The patient has past medical history of following. The patient has elevated creatinine, acute kidney injury, possible chronic kidney disease. She has elevated potassium. She has anemia. Other past medical history includes the following. She has history of diabetes, history of hypertension, history of hypercholesteremia, history of looks like osteoarthritis, hypertension. Again, elevated creatinine, anemia, possible chronic kidney disease. She also has what looks like a non-STEMI. I believe she came in with that also. She had elevated troponin. ALLERGIES: No known drug allergies. No antibiotic allergies. SOCIAL HISTORY: Negative for smoking, alcohol, or drug abuse. FAMILY HISTORY: Negative for tuberculosis exposure or cancer. MEDICATIONS: Upon reviewing the MAR, she is on the following medications. She is on allopurinol, heparin, magnesium sulfate, allopurinol, Rocephin, vancomycin, hydrocodone, aspirin, vancomycin per pharmacy dosing. She is on metoprolol. She is on Lyrica, insulin, pantoprazole, atorvastatin, acetaminophen, intravenous fluids. Outside medications noted and reconciliated. PHYSICAL EXAMINATION: VITAL SIGNS: Temperature is 98.1, pulse rate is 96, respiratory rate 21, blood pressure 140/51, and saturation 100%. T-max 102.3. Pulse rate has been over 100. Blood pressure initially was 85/71 also, but she is not requiring pressors. GENERAL: Alert, responsive, in no acute distress. HEAD AND NECK: Oral exam, no thrush. Eye exam, no icterus. Neck is supple. No JVD. Normocephalic. Neck is supple. No icterus or thrush. HEART: Regular. No obvious gallop or murmur. No friction rub. ABDOMEN: Soft. Positive bowel sounds. Nontender. LUNGS: Clear bilaterally. No rhonchi or rales. SKIN: No rash noted. MUSCULOSKELETAL: She has some right knee swelling and effusion with some range of motion. Legs are without cellulitis. Decreased range of motion of the right knee, secondary to pain, but noted no erythema noted. PERIPHERAL VASCULAR: No gangrene. GENITOURINARY: She has a Michelle. Urine is cloudy. LINES: Line sites without phlebitis. NEUROLOGIC: Generalized weakness, responsive, nonfocal. Able to move extremities. LABORATORY AND DIAGNOSTIC DATA: Laboratory data as follows, creatinine is 2.6, potassium 5.3. LFTs were elevated and noted. White count is 11.1, now white count 10.0, hemoglobin 10.0. Creatinine 2.6. UA had 3+ leukocyte esterase and 60 white blood cells and many bacteria. Cultures, blood cultures been ordered. Urine culture greater than a 1000 Gram-negative bacilli. Imaging studies, chest x-ray was done, which showed no evidence of pneumonia, no acute disease. ASSESSMENT AND PLAN: 1. The patient has Gram-negative urinary tract infection/pyelonephritis with sepsis, SIRS criteria, tachycardia, elevated respiratory rate, SIRS criteria. Most likely source of the sepsis is Gram-negative urinary tract infection, pyelonephritis. There is question if the patient has right knee septic arthritis. In discussion with the nursing staff, the patient was seen by Orthopedic Surgery, who did not feel the patient needs aspiration more likely osteoarthritis causing the knee pain and swelling. Await final report from Orthopedic Surgery. Continue vancomycin and Rocephin for sepsis, Gram-negative urinary tract infection, and pyelonephritis. Check blood cultures and laboratories. Chest x-ray is negative. Check urine culture results also. Vancomycin have Staph aureus coverage and Gram-negative coverage for the urinary tract infection from Rocephin. If the blood cultures are negative, consider discontinuing vancomycin. 2. Anemia. 3. Acute kidney injury. 4. Mild hyperkalemia. 5. Diabetes. 6. Hypertension. 7. Blood sugar and blood pressure treatment for diabetes and hypertension per primary. 8. Hyperlipidemia, dyslipidemia, hypercholesteremia. 9. Osteoarthritis. 10. Past medical history as noted. 11. No known drug allergies. 12. Social history is negative. 13. Family history is noncontributory. 14. MAR was noted. 15. Case was discussed with RN. 16. The patient is in ICU for elevated troponin, possible non-STEMI. 17. Continue treatment per primary consultants. 18. Notes and records were noted. Orders were entered. Yuliet Tubbs M.D. DR: SHELL JOB#: [id number] CC: HILARY
--- NOTE | 2018-09-06 22:00 | NUR ---
NURSE NOTES: Patient repositioned and provided water to drink. Patient ate pudding and juice. swallows well without coughing
[2018-09-07] VITALS (24 sets, daily range): BP systolic 96–157; BP diastolic 43–108
--- NOTE | 2018-09-07 | NUR ---
NURSE NOTES: Patient repositioned, Vitals remains stable, NAD.
--- NOTE | 2018-09-07 00:45 | Consultation ---
DATE OF CONSULTATION: 09/06/2018 CONSULTING PHYSICIAN: Emir Brown M.D. CHIEF COMPLAINT: Right knee pain. HISTORY OF PRESENT ILLNESS: The patient is an 88-year-old female who appeared to have a syncope episode. She subsequently was brought to the emergency room and brought to the ICU because she had rhabdomyolysis, with ST changes noted on the EKG. Orthopedic consultation was obtained for further care of the patient regarding her right knee. PAST MEDICAL HISTORY: Reviewed from the intake chart. PAST SURGICAL HISTORY: Reviewed from the intake chart. MEDICATIONS: Reviewed from the intake chart. PHYSICAL EXAMINATION: EXTREMITIES: Shows swelling in the right knee. No ecchymosis. Decreased movement of the patella. Posterior calf is soft. PELVIC: Right hip examination shows no significant pain with internal and external rotation. No leg length discrepancy. Xrays of right knee No soft tissue abnormalities but end-stage osteoarthritis. DIAGNOSTIC DATA: CT scan of the pelvis was unremarkable for any fracture of the pelvic ring of right hip or left hip. ASSESSMENT: Right knee end-stage osteoarthritis. DISCUSSION: At this point, I think she has arthritis. At this point, we cannot do much in terms of anti-inflammatories given that she has rhabdomyolysis. What I recommend right now is cryotherapy, lidocaine patch. Once she improves, she will be weightbearing as tolerated. If she still has issues, then anti-inflammatory will be appropriate to give once her kidney function is improved. Emir Brown M.D. DR: GUILLERMO JOB#: [id number] CC: HILARY
--- NOTE | 2018-09-07 02:00 | NUR ---
NURSE NOTES: Repositioned, given water to drink, no coughing, patient is in semi-fowlers, no BM yet, fluids ongoing.
--- NOTE | 2018-09-07 04:00 | NUR ---
NURSE NOTES: Patient cleaned and repositioned, fluids remains ongoing, patient warm to touch, temperature 99.8F, cooling measure provided, other vitals remains stable.
[2018-09-07 05:49] LABS: BASOPHILS % (AUTO) 0.4 % (0.0-2.0); EOSINOPHILS % (AUTO) 0.5 % (0.0-3.0); HEMATOCRIT 28.4 % (37.0-47.0); LYMPHOCYTES % (AUTO) 7.4 % (20.0-45.0); MEAN CORPUSCULAR VOLUME 109 FL (80-99); MONOCYTES % (AUTO) 7.4 % (1.0-10.0); NEUTROPHILS % (AUTO) 84.3 % (45.0-75.0); PLATELET COUNT 134 K/UL (150-450); RED BLOOD COUNT 2.62 M/UL (4.20-5.40); RED CELL DISTRIBUTION WIDTH 13.6 % (11.6-14.8); WHITE BLOOD COUNT 8.7 K/UL (4.8-10.8)
--- NOTE | 2018-09-07 06:00 | NUR ---
NURSE NOTES: No acute events overnight, NAD, Vitals stable. Patient eat well overnight, and drank well too without coughing or aspirating
[2018-09-07] MEDS: NovoLOG Insulin Flexpen SUBQ SCH ×4 (06:13→20:15)
[2018-09-07 06:36] LABS: PHOSPHORUS 4.7 MG/DL (2.5-4.9)
[2018-09-07 06:38] LABS: ALANINE AMINOTRANSFERASE 70 U/L (12-78); ALBUMIN 2.1 G/DL (3.4-5.0); ALBUMIN/GLOBULIN RATIO 0.6 (1.0-2.7); ALKALINE PHOSPHATASE 53 U/L (46-116); ANION GAP 11 mmol/L (5-15); ASPARTATE AMINO TRANSFERASE 118 U/L (15-37); BILIRUBIN,TOTAL 0.1 MG/DL (0.2-1.0); BLOOD UREA NITROGEN 70 mg/dL (7-18); CALCIUM 7.5 MG/DL (8.5-10.1); CARBON DIOXIDE 19 MMOL/L (21-32); CHLORIDE 111 MMOL/L (98-107); CREATINE KINASE 2041 U/L (26-308); CREATININE 2.4 MG/DL (0.55-1.30); POTASSIUM 3.7 MMOL/L (3.5-5.1); SODIUM 141 MMOL/L (136-145)
--- NOTE | 2018-09-07 07:32 | NUR ---
NURSE NOTES: received report from ROQUE [place]. Patient received resting in bed, alert. croatian speaking. On 2LNC, 02sat 100%, diminished lung sounds in lower lobes, mild wheeze upper lobe. no c/o pain at this time. swollen right knee, warm to touch. Running IV fluid to right wrist, NS at 125 ml/hr, puffy. right hand IV, saline lock. Michelle catheter in place, draining to yellow urine. Sinus Rhythm on the monitor. fall and aspiration precautions in place. call light in reach. Will continue to monitor.
--- NOTE | 2018-09-07 08:40 | NUR ---
NURSE NOTES: Physical therapist here to do P.T with pt. pt willing to try activity, VSS. will continue to monitor.
[2018-09-07] MEDS ORDERED: Albuterol/Ipratropium 3ml neb HHN SCH (09:00)
[2018-09-07] MEDS: Pantoprazole Inj IVP SCH (09:27)
[2018-09-07] MEDS: Aspirin EC 81mg tab ORAL SCH (09:27)
[2018-09-07] MEDS: Metoprolol 25mg tab ORAL SCH ×2 (09:28→20:10)
[2018-09-07] MEDS: Heparin 5000 units/ml inj SUBQ SCH ×2 (09:31→20:12)
--- NOTE | 2018-09-07 11:16 | NUR ---
P.T NOTE: P.T evaluation completed and treatment initiated. Please refer to P.T evaluation for current functional status. Pt is alert, oriented x4, pleasant and cooperative. Pt is limited by generalized weakness, poor endurance and severe pain on B knees more in the R aggravated by movement initiation and WB. Pt require extended amount of time verbal and manual cues to initiate and complete mobility tasks . MAX A x 1 for bed mobilities, MAX A X 1 for transfers. Pt able to sit unsupported at EOB, able to stand partially with FWW with MOD support . Pt not able to fully stand and ambulate due to increased B knee pain. Skilled P.T service is warranted to increase strength, balance and activity tolerance to increase safety and independence in functional mobilities. Recommend SNF for further rehab VS home with P.T.
[2018-09-07] MEDS: Norco 5mg/325mg tab ORAL PRN ×2 (11:44→20:11)
--- NOTE | 2018-09-07 11:44 | NUR ---
NURSE NOTES: pt c/o leg pain 6/10, norco 5/325 po q6hr, administered per policy, bp stable.
--- NOTE | 2018-09-07 12:28 | General Progress Note ---
Assessment/Plan Assessment/Plan #Fall #Rhabdomyolysis, resolving #HAIR #Hyperkalemia, improved #Metabolic acidosis -Continue IV fluids -monitor CK levels -avoid nephrotoxic meds -monitor daily BMP #NSTEMI -Cardiology following -Anticoagulation stoped per Cardiology recs -continue ASA,Statin, B-millie -TTE -Cardiac monitoring #Right knee swelling and pain #Elevated CRP -Ortho eval appreciated -no indication for arthrocentesis at this time #Severe sepsis, present on admission #Possible UTI -continue ceftriaxone -culture growing mcguire-sensitive E. coli #Type 2 DM -hold Actos with HAIR -lispro SS #HTN -hold Diovan and Lasix with HAIR -monitor BP VTE PPx Lovenox DNR 70 minutes was spent in caring for the patient which includes coordination of care with nursing, operations consultant MD, 35 minutes was spent in direct face to face time with patient and family Subjective Date patient seen: Sep 07, 2018 Time patient seen: 08:15 Constitutional: Denies: fever HEENT: Denies: eye pain Cardiovascular: Denies: chest pain Respiratory: Denies: cough Gastrointestinal/Abdominal: Denies: abdomen distended, abdominal pain Genitourinary: Denies: burning Allergies: Coded Allergies: No Known Allergies (Verified , 10/20/11) Subjective Medicine followup for multiple medical problems including rhbadomyolysis, NSTEMI , severe sepsis due to UTI, HAIR, metabolic acidosis. Objective Last 24 Hour Vital Signs Date Time Temp Pulse Resp B/P (MAP) Pulse Ox O2 Delivery O2 Flow Rate FiO2 09/07/18 11:00 99 14 142/83 100 Nasal Cannula 2.0 09/07/18 10:00 90 14 103/48 100 Nasal Cannula 2.0 09/07/18 09:28 83 112/60 09/07/18 09:00 87 12 105/61 100 Nasal Cannula 2.0 09/07/18 08:00 98.6 92 21 120/108 100 Nasal Cannula 2.0 09/07/18 08:00 76 09/07/18 08:00 Nasal Cannula 2.0 09/07/18 07:43 Nasal Cannula 2.0 28 09/07/18 07:43 95 Nasal Cannula 2.0 28 09/07/18 07:00 74 14 103/48 100 Nasal Cannula 2.0 09/07/18 06:00 98.9 73 15 118/50 100 Nasal Cannula 2.0 09/07/18 05:00 72 14 111/43 100 Nasal Cannula 2.0 09/07/18 04:00 99.8 69 11 96/55 100 Nasal Cannula 2.0 09/07/18 04:00 82 09/07/18 04:00 Nasal Cannula 2.0 09/07/18 03:00 69 11 106/52 100 Nasal Cannula 2.0 09/07/18 02:00 69 15 112/48 100 Nasal Cannula 2.0 09/07/18 01:00 68 15 101/48 99 Nasal Cannula 2.0 09/07/18 00:00 Nasal Cannula 2.0 09/07/18 00:00 85 09/07/18 00:00 99.4 85 22 102/49 100 Nasal Cannula 2.0 09/06/18 23:00 85 15 99/44 99 Nasal Cannula 2.0 09/06/18 22:00 99.6 79 18 104/63 99 Nasal Cannula 2.0 09/06/18 21:00 91 18 108/35 99 Nasal Cannula 2.0 09/06/18 20:26 100.2 09/06/18 20:00 Nasal Cannula 2.0 09/06/18 20:00 98 126/65 09/06/18 20:00 100.8 101 22 130/55 99 Nasal Cannula 2.0 09/06/18 20:00 89 09/06/18 19:00 98 22 126/65 99 Nasal Cannula 2.0 09/06/18 18:00 102 19 141/55 99 Nasal Cannula 2.0 09/06/18 17:00 98.6 94 19 127/75 100 Nasal Cannula 2.0 09/06/18 16:00 96 21 114/51 100 Nasal Cannula 2.0 09/06/18 16:00 Nasal Cannula 2.0 09/06/18 16:00 101 09/06/18 15:00 84 21 106/51 100 Nasal Cannula 2.0 09/06/18 14:00 79 21 112/47 100 Nasal Cannula 2.0 09/06/18 13:00 98.1 80 23 121/74 100 Nasal Cannula 2.0 Intake and Output 09/06/18 09/07/18 19:00 07:00 Intake Total 2472.416 ml 1900 ml Output Total 355 ml 305 ml Balance 2117.416 ml 1595 ml Intake Oral 950 ml 300 ml IV Total 1522.416 ml 1600 ml Output Urine Total 355 ml 305 ml # Bowel Movements 1 Laboratory Tests 09/07/18 04:35: White Blood Count 8.7, Red Blood Count 2.62L, Hemoglobin 9.0L, Hematocrit 28.4L , Mean Corpuscular Volume 109H, Mean Corpuscular Hemoglobin 34.4H, Mean Corpuscular Hemoglobin Concent 31.7L, Red Cell Distribution Width 13.6, Platelet Count 134L, Mean Platelet Volume 7.4, Neutrophils (%) (Auto) 84.3H, Lymphocytes (%) (Auto) 7.4L, Monocytes (%) (Auto) 7.4, Eosinophils (%) (Auto) 0.5, Basophils (%) (Auto) 0.4, Sodium Level 141, Potassium Level 3.7, Chloride Level 111H, Carbon Dioxide Level 19L, Anion Gap 11, Blood Urea Nitrogen 70H, Creatinine 2.4H, Estimat Glomerular Filtration Rate , Glucose Level 144H, Uric Acid 8.0H, Calcium Level 7.5L, Phosphorus Level 4.7, Magnesium Level 2.5H, Total Bilirubin 0.1L, Gamma Glutamyl Transpeptidase 7, Aspartate Amino Transf ( AST/SGOT) 118H, Alanine Aminotransferase (ALT/SGPT) 70, Alkaline Phosphatase 53 , Total Creatine Kinase 2041H, Troponin I 3.591H, Total Protein 5.4L, Albumin 2.1L, Globulin 3.3, Albumin/Globulin Ratio 0.6L Height (Feet): 5 Height (Inches): 1.00 Weight (Pounds): 143 General Appearance: no apparent distress, alert Neck: non-tender, normal alignment Cardiovascular: normal peripheral pulses, regular rhythm Respiratory/Chest: chest wall non-tender, lungs clear Abdomen: normal bowel sounds, non tender Caden Kelsey MD Sep 07, 2018 12:28
--- NOTE | 2018-09-07 12:30 | NUR ---
NURSE NOTES: MD MUNOZ HERE TO SEE PT. WILL MAKE ADJUSTMENTS TO LOPRESSOR.
[2018-09-07] MEDS ORDERED: Albuterol/Ipratropium 3ml neb HHN PRN (13:00)
[2018-09-07] MEDS: Albuterol/Ipratropium 3ml neb HHN SCH ×2 (13:03→19:16)
--- NOTE | 2018-09-07 13:07 | NUR ---
NURSE NOTES: MD HURTADO HERE TO SEE PT, NO NEW ORDERS AT THIS TIME.
--- NOTE | 2018-09-07 13:07 | Cardiac Electrophysiology PN ---
Assessment/Plan Assessment/Plan 1. Non-ST elevation myocardial infarction with troponin of 28, down to 15 and then 3.6 today. The patient does not have any chest pain and could be due to rhabdomyolysis and renal failure The patient is DNR and DNI and family does not want cardiac catheterization. Continue aspirin, beta-millie, and statin. Echocardiogram EF 65% 2. Hypertension. Increase Lopressor to 25 bid 3. Hyperlipidemia, on Lipitor. 4. Rhabdomyolysis. CPK 7600 to 2000 On IV fluid. 5. Renal failure, creatinine 2.6 down to 2.4. 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 No CP or SOB . Objective Last 24 Hour Vital Signs Date Time Temp Pulse Resp B/P (MAP) Pulse Ox O2 Delivery O2 Flow Rate FiO2 09/07/18 12:00 Nasal Cannula 2.0 09/07/18 11:00 99 14 142/83 100 Nasal Cannula 2.0 09/07/18 10:00 90 14 103/48 100 Nasal Cannula 2.0 09/07/18 09:28 83 112/60 09/07/18 09:00 87 12 105/61 100 Nasal Cannula 2.0 09/07/18 08:00 98.6 92 21 120/108 100 Nasal Cannula 2.0 09/07/18 08:00 76 09/07/18 08:00 Nasal Cannula 2.0 09/07/18 07:43 Nasal Cannula 2.0 28 09/07/18 07:43 95 Nasal Cannula 2.0 28 09/07/18 07:00 74 14 103/48 100 Nasal Cannula 2.0 09/07/18 06:00 98.9 73 15 118/50 100 Nasal Cannula 2.0 09/07/18 05:00 72 14 111/43 100 Nasal Cannula 2.0 09/07/18 04:00 99.8 69 11 96/55 100 Nasal Cannula 2.0 09/07/18 04:00 82 09/07/18 04:00 Nasal Cannula 2.0 09/07/18 03:00 69 11 106/52 100 Nasal Cannula 2.0 09/07/18 02:00 69 15 112/48 100 Nasal Cannula 2.0 09/07/18 01:00 68 15 101/48 99 Nasal Cannula 2.0 09/07/18 00:00 Nasal Cannula 2.0 09/07/18 00:00 85 09/07/18 00:00 99.4 85 22 102/49 100 Nasal Cannula 2.0 09/06/18 23:00 85 15 99/44 99 Nasal Cannula 2.0 09/06/18 22:00 99.6 79 18 104/63 99 Nasal Cannula 2.0 09/06/18 21:00 91 18 108/35 99 Nasal Cannula 2.0 09/06/18 20:26 100.2 09/06/18 20:00 Nasal Cannula 2.0 09/06/18 20:00 98 126/65 09/06/18 20:00 100.8 101 22 130/55 99 Nasal Cannula 2.0 09/06/18 20:00 89 09/06/18 19:00 98 22 126/65 99 Nasal Cannula 2.0 09/06/18 18:00 102 19 141/55 99 Nasal Cannula 2.0 09/06/18 17:00 98.6 94 19 127/75 100 Nasal Cannula 2.0 09/06/18 16:00 96 21 114/51 100 Nasal Cannula 2.0 09/06/18 16:00 Nasal Cannula 2.0 09/06/18 16:00 101 09/06/18 15:00 84 21 106/51 100 Nasal Cannula 2.0 09/06/18 14:00 79 21 112/47 100 Nasal Cannula 2.0 Intake and Output 09/06/18 09/07/18 19:00 07:00 Intake Total 2472.416 ml 1900 ml Output Total 355 ml 305 ml Balance 2117.416 ml 1595 ml Intake Oral 950 ml 300 ml IV Total 1522.416 ml 1600 ml Output Urine Total 355 ml 305 ml # Bowel Movements 1 Laboratory Tests Test 09/07/18 04:35 White Blood Count 8.7 K/UL (4.8-10.8) Red Blood Count 2.62 M/UL (4.20-5.40) L Hemoglobin 9.0 G/DL (12.0-16.0) L Hematocrit 28.4 % (37.0-47.0) L Mean Corpuscular Volume 109 FL (80-99) H Mean Corpuscular Hemoglobin 34.4 PG (27.0-31.0) H Mean Corpuscular Hemoglobin Concent 31.7 G/DL (32.0-36.0) L Red Cell Distribution Width 13.6 % (11.6-14.8) Platelet Count 134 K/UL (150-450) L Mean Platelet Volume 7.4 FL (6.5-10.1) Neutrophils (%) (Auto) 84.3 % (45.0-75.0) H Lymphocytes (%) (Auto) 7.4 % (20.0-45.0) L Monocytes (%) (Auto) 7.4 % (1.0-10.0) Eosinophils (%) (Auto) 0.5 % (0.0-3.0) Basophils (%) (Auto) 0.4 % (0.0-2.0) Sodium Level 141 MMOL/L (136-145) Potassium Level 3.7 MMOL/L (3.5-5.1) Chloride Level 111 MMOL/L (98-107) H Carbon Dioxide Level 19 MMOL/L (21-32) L Anion Gap 11 mmol/L (5-15) Blood Urea Nitrogen 70 mg/dL (7-18) H Creatinine 2.4 MG/DL (0.55-1.30) H Estimat Glomerular Filtration Rate mL/min (>60) Glucose Level 144 MG/DL (74-106) H Uric Acid 8.0 MG/DL (2.6-7.2) H Calcium Level 7.5 MG/DL (8.5-10.1) L Phosphorus Level 4.7 MG/DL (2.5-4.9) Magnesium Level 2.5 MG/DL (1.8-2.4) H Total Bilirubin 0.1 MG/DL (0.2-1.0) L Gamma Glutamyl Transpeptidase 7 U/L (5-85) Aspartate Amino Transf (AST/SGOT) 118 U/L (15-37) H Alanine Aminotransferase (ALT/SGPT) 70 U/L (12-78) Alkaline Phosphatase 53 U/L (46-116) Total Creatine Kinase 2041 U/L (26-308) H Troponin I 3.591 ng/mL (0.000-0.056) Total Protein 5.4 G/DL (6.4-8.2) L Albumin 2.1 G/DL (3.4-5.0) L Globulin 3.3 g/dL Albumin/Globulin Ratio 0.6 (1.0-2.7) L Microbiology Date/Time Source Procedure Growth Status 09/05/18 14:00 Urine,Clean Catch Urine Culture - Final Escherichia Coli Complete 09/05/18 16:28 Rectum VRE Culture Pending Resulted 09/05/18 16:28 Rectum - Preliminary Resulted Objective HEAD AND NECK: Shows no JVD. LUNGS: Shows coarse rhonchi. CARDIOVASCULAR: Shows regular S1 and S2 with no gallop or murmur. ABDOMEN: Soft. EXTREMITIES: No pitting edema. Kevin Ruiz MD Sep 07, 2018 13:07
--- NOTE | 2018-09-07 13:35 | Nephrology Progress Note ---
Assessment/Plan Problem List: (1) Renal failure (ARF), acute on chronic Assessment: Cr lower (2) Diabetic nephropathy (3) Rhabdomyolysis Assessment: CPK lower (4) NSTEMI (non-ST elevated myocardial infarction) Assessment Acute Renal Failure- possibly superimposed on chronic Fall, Rhabdo High K Myocardial injury ( elevated Troponin) UTI DM with Proteinuria: Likely Diabetic Nephropathy HTN right knee swelling ? Arthritis Plan hydrate urine studies gastric protection cardiology eval 2D echo monitor CPK antibiotics per orders Subjective ROS Limited/Unobtainable: No Constitutional: Reports: malaise Objective Objective Last 24 Hour Vital Signs Date Time Temp Pulse Resp B/P (MAP) Pulse Ox O2 Delivery O2 Flow Rate FiO2 09/07/18 13:14 115 22 100 Nasal Cannula 2.0 28 09/07/18 13:03 116 21 99 Nasal Cannula 3.0 32 09/07/18 13:00 108 21 Nasal Cannula 3.0 32 09/07/18 12:00 Nasal Cannula 2.0 09/07/18 11:00 99 14 142/83 100 Nasal Cannula 2.0 09/07/18 10:00 90 14 103/48 100 Nasal Cannula 2.0 09/07/18 09:28 83 112/60 09/07/18 09:00 87 12 105/61 100 Nasal Cannula 2.0 09/07/18 08:00 98.6 92 21 120/108 100 Nasal Cannula 2.0 09/07/18 08:00 76 09/07/18 08:00 Nasal Cannula 2.0 09/07/18 07:43 Nasal Cannula 2.0 28 09/07/18 07:43 95 Nasal Cannula 2.0 28 09/07/18 07:00 74 14 103/48 100 Nasal Cannula 2.0 09/07/18 06:00 98.9 73 15 118/50 100 Nasal Cannula 2.0 09/07/18 05:00 72 14 111/43 100 Nasal Cannula 2.0 09/07/18 04:00 99.8 69 11 96/55 100 Nasal Cannula 2.0 09/07/18 04:00 82 09/07/18 04:00 Nasal Cannula 2.0 09/07/18 03:00 69 11 106/52 100 Nasal Cannula 2.0 09/07/18 02:00 69 15 112/48 100 Nasal Cannula 2.0 09/07/18 01:00 68 15 101/48 99 Nasal Cannula 2.0 09/07/18 00:00 Nasal Cannula 2.0 09/07/18 00:00 85 09/07/18 00:00 99.4 85 22 102/49 100 Nasal Cannula 2.0 09/06/18 23:00 85 15 99/44 99 Nasal Cannula 2.0 09/06/18 22:00 99.6 79 18 104/63 99 Nasal Cannula 2.0 09/06/18 21:00 91 18 108/35 99 Nasal Cannula 2.0 09/06/18 20:26 100.2 09/06/18 20:00 Nasal Cannula 2.0 09/06/18 20:00 98 126/65 09/06/18 20:00 100.8 101 22 130/55 99 Nasal Cannula 2.0 09/06/18 20:00 89 09/06/18 19:00 98 22 126/65 99 Nasal Cannula 2.0 09/06/18 18:00 102 19 141/55 99 Nasal Cannula 2.0 09/06/18 17:00 98.6 94 19 127/75 100 Nasal Cannula 2.0 09/06/18 16:00 96 21 114/51 100 Nasal Cannula 2.0 09/06/18 16:00 Nasal Cannula 2.0 09/06/18 16:00 101 09/06/18 15:00 84 21 106/51 100 Nasal Cannula 2.0 09/06/18 14:00 79 21 112/47 100 Nasal Cannula 2.0 Intake and Output 09/06/18 09/07/18 19:00 07:00 Intake Total 2472.416 ml 1900 ml Output Total 355 ml 305 ml Balance 2117.416 ml 1595 ml Intake Oral 950 ml 300 ml IV Total 1522.416 ml 1600 ml Output Urine Total 355 ml 305 ml # Bowel Movements 1 Laboratory Tests 09/07/18 04:35: White Blood Count 8.7, Red Blood Count 2.62L, Hemoglobin 9.0L, Hematocrit 28.4L , Mean Corpuscular Volume 109H, Mean Corpuscular Hemoglobin 34.4H, Mean Corpuscular Hemoglobin Concent 31.7L, Red Cell Distribution Width 13.6, Platelet Count 134L, Mean Platelet Volume 7.4, Neutrophils (%) (Auto) 84.3H, Lymphocytes (%) (Auto) 7.4L, Monocytes (%) (Auto) 7.4, Eosinophils (%) (Auto) 0.5, Basophils (%) (Auto) 0.4, Sodium Level 141, Potassium Level 3.7, Chloride Level 111H, Carbon Dioxide Level 19L, Anion Gap 11, Blood Urea Nitrogen 70H, Creatinine 2.4H, Estimat Glomerular Filtration Rate , Glucose Level 144H, Uric Acid 8.0H, Calcium Level 7.5L, Phosphorus Level 4.7, Magnesium Level 2.5H, Total Bilirubin 0.1L, Gamma Glutamyl Transpeptidase 7, Aspartate Amino Transf ( AST/SGOT) 118H, Alanine Aminotransferase (ALT/SGPT) 70, Alkaline Phosphatase 53 , Total Creatine Kinase 2041H, Troponin I 3.591H, Total Protein 5.4L, Albumin 2.1L, Globulin 3.3, Albumin/Globulin Ratio 0.6L Height (Feet): 5 Height (Inches): 1.00 Weight (Pounds): 143 General Appearance: no apparent distress Cardiovascular: tachycardia Respiratory/Chest: decreased breath sounds Abdomen: other - obese Erick Patterson MD Sep 07, 2018 13:35
--- NOTE | 2018-09-07 14:05 | NUR ---
NURSE NOTES: Patient repositioned, Vitals remains stable, NAD.
--- NOTE | 2018-09-07 14:17 | NUR ---
Social Work This Sw met with patient, currently in the ICU who remains alert/oriented, speaks only Luxembourgish. This Sw spoke with daughter, Nessa Huizar ([phone]) who explains patient lives with spouse (age 101), explains "he is better than she is." Spouse is forgetful/confused at times, however. Daughter has offered her parents to come and live with her, while they refuse this, preferring to stay in their home (daughter has twenty steps to her home, while patient/spouse use an elevator to their apartment). Patient has been having pain in her knee; daughter believes this is why patient has declined in ability to ambulate. Patient typically ambulates at home with a walker. This Sw recommended SNF upon discharge, as needed. Pending progress here with P.T (P.T recommends SNF vs Home Care). Patient has signed a POLST, requesting DNR/DNI as well.
--- NOTE | 2018-09-07 15:14 | Cardiology Report ---
APPROVED REPORT EXAM: Two-dimensional and M-mode echocardiogram with Doppler and color Doppler. INDICATION CAD M-Mode DIMENSIONS IVSd1.0 (0.7-1.1cm)Left Atrium (MM)4.0 (1.6-4.0cm) LVDd3.9 (3.5-5.6cm)Aortic Root3.4 (2.0-3.7cm) PWd1.0 (0.7-1.1cm)Aortic Cusp Exc.1.8 (1.5-2.0cm) LVDs2.4 (2.5-4.0cm) PWs1.1 cm Technically difficult study due to poor acoustical windows. Normal left ventricular chamber size, systolic function and wall motion to extent visualized. Left ventricular ejection fraction estimated to be 65 %. No evidence of left ventricular hypertrophy. No evidence of pericardial effusion. All other cardiac chamber sizes are within normal limits. Focal aortic valve sclerosis with adequate cusp excursion. Thickened mitral valve leaflets with normal excursion. Mitral annulus and aortic root calcification. Pulmonic valve not well visualized. Normal tricuspid valve structure. IVC at normal size with physiologic collapse. A color flow and spectral Doppler study was performed and revealed: Mild mitral regurgitation. Mitral diastolic velocities suggest reduced left ventricular relaxation c/w mild LV diastolic dysfunction (Grade I). Trace tricuspid regurgitation. Tricuspid systolic velocities suggests peak right ventricular systolic pressure of 17 mmHg.
--- NOTE | 2018-09-07 15:28 | Pulmonolgy Critical Care Note ---
Critical Care - Asmt/Plan Problems: (1) Elevated d-dimer (2) Rhabdomyolysis (3) NSTEMI (non-ST elevated myocardial infarction) (4) UTI (lower urinary tract infection) (5) Sepsis Respiratory: monitor respiratory rate, adjust FIO2, other - HHNs pulm hygiene Cardiac: continue to monitor HR/BP, other - F/U cards recs, no plan for cath, + med managment Renal: keep IV fluid, check electrolytes - Cr CK Infectious Disease: check cultures, continue antibiotics - per ID Gastrointestinal: other - aspiration precuations Endocrine: monitor blood sugar Hematologic: monitor H/H, other - Elevated D-dimer and negative duplex, F/U VQ Neurologic: keep patient comfortable Affect: PRN ativan Prophylaxis: Protonix, Heparin, other - DNAR DNI Disposition: transfer to - tele Notes Reviewed: human resources operations specialist, cardio, renal, ID Discussed with: nurses, consultants Critical Care - Objective Last 24 Hour Vital Signs Date Time Temp Pulse Resp B/P (MAP) Pulse Ox O2 Delivery O2 Flow Rate FiO2 09/07/18 13:14 115 22 100 Nasal Cannula 2.0 28 09/07/18 13:03 116 21 99 Nasal Cannula 3.0 32 09/07/18 13:00 108 21 Nasal Cannula 3.0 32 09/07/18 13:00 114 23 142/83 100 Nasal Cannula 2.0 09/07/18 12:00 98.8 116 24 157/76 99 Nasal Cannula 2.0 09/07/18 12:00 Nasal Cannula 2.0 09/07/18 12:00 116 09/07/18 11:00 99 14 142/83 100 Nasal Cannula 2.0 09/07/18 10:00 90 14 103/48 100 Nasal Cannula 2.0 09/07/18 09:28 83 112/60 09/07/18 09:00 87 12 105/61 100 Nasal Cannula 2.0 09/07/18 08:00 98.6 92 21 120/108 100 Nasal Cannula 2.0 09/07/18 08:00 76 09/07/18 08:00 Nasal Cannula 2.0 09/07/18 07:43 Nasal Cannula 2.0 28 09/07/18 07:43 95 Nasal Cannula 2.0 28 09/07/18 07:00 74 14 103/48 100 Nasal Cannula 2.0 09/07/18 06:00 98.9 73 15 118/50 100 Nasal Cannula 2.0 09/07/18 05:00 72 14 111/43 100 Nasal Cannula 2.0 09/07/18 04:00 99.8 69 11 96/55 100 Nasal Cannula 2.0 09/07/18 04:00 82 09/07/18 04:00 Nasal Cannula 2.0 09/07/18 03:00 69 11 106/52 100 Nasal Cannula 2.0 09/07/18 02:00 69 15 112/48 100 Nasal Cannula 2.0 09/07/18 01:00 68 15 101/48 99 Nasal Cannula 2.0 09/07/18 00:00 Nasal Cannula 2.0 09/07/18 00:00 85 09/07/18 00:00 99.4 85 22 102/49 100 Nasal Cannula 2.0 09/06/18 23:00 85 15 99/44 99 Nasal Cannula 2.0 09/06/18 22:00 99.6 79 18 104/63 99 Nasal Cannula 2.0 09/06/18 21:00 91 18 108/35 99 Nasal Cannula 2.0 09/06/18 20:26 100.2 09/06/18 20:00 Nasal Cannula 2.0 09/06/18 20:00 98 126/65 09/06/18 20:00 100.8 101 22 130/55 99 Nasal Cannula 2.0 09/06/18 20:00 89 09/06/18 19:00 98 22 126/65 99 Nasal Cannula 2.0 09/06/18 18:00 102 19 141/55 99 Nasal Cannula 2.0 09/06/18 17:00 98.6 94 19 127/75 100 Nasal Cannula 2.0 09/06/18 16:00 96 21 114/51 100 Nasal Cannula 2.0 09/06/18 16:00 Nasal Cannula 2.0 09/06/18 16:00 101 Status: awake Condition: improving HEENT: atraumatic, normocephalic Neck: full ROM Lungs: clear Heart: HR/BP stable Abdomen: soft, non-tender, active bowel sounds Extremities: no C/C/E Micro: Microbiology Date/Time Source Procedure Growth Status 09/05/18 14:00 Urine,Clean Catch Urine Culture - Final Escherichia Coli Complete 09/05/18 16:28 Rectum VRE Culture Pending Resulted 09/05/18 16:28 Rectum - Preliminary Resulted Accucheck: 159 Blood Sugars: BS controlled Critical Care - Subjective ROS Limited/Unobtainable: Yes ICU Day: 3 Interval Events: AFVSS O2 needs stable Trops, CR and CK downtrending Mynor PO E coli in urine Duplex negative Seen by ortho - knee felt to not be infected + DDD Condition: improving IV Access: peripheral EKG Rhythm: Sinus Rhythm FI02: 28 Sputum Amount: None I&O: Intake and Output 09/06/18 09/07/18 19:00 07:00 Intake Total 2472.416 ml 1900 ml Output Total 355 ml 305 ml Balance 2117.416 ml 1595 ml Intake Oral 950 ml 300 ml IV Total 1522.416 ml 1600 ml Output Urine Total 355 ml 305 ml # Bowel Movements 1 Subjective: No F/C/CP/SOB/N/V/D/C/abd pain or urinary complaints + knee pain R Labs: Laboratory Tests Test 09/07/18 04:35 White Blood Count 8.7 K/UL (4.8-10.8) Red Blood Count 2.62 M/UL (4.20-5.40) L Hemoglobin 9.0 G/DL (12.0-16.0) L Hematocrit 28.4 % (37.0-47.0) L Mean Corpuscular Volume 109 FL (80-99) H Mean Corpuscular Hemoglobin 34.4 PG (27.0-31.0) H Mean Corpuscular Hemoglobin Concent 31.7 G/DL (32.0-36.0) L Red Cell Distribution Width 13.6 % (11.6-14.8) Platelet Count 134 K/UL (150-450) L Mean Platelet Volume 7.4 FL (6.5-10.1) Neutrophils (%) (Auto) 84.3 % (45.0-75.0) H Lymphocytes (%) (Auto) 7.4 % (20.0-45.0) L Monocytes (%) (Auto) 7.4 % (1.0-10.0) Eosinophils (%) (Auto) 0.5 % (0.0-3.0) Basophils (%) (Auto) 0.4 % (0.0-2.0) Sodium Level 141 MMOL/L (136-145) Potassium Level 3.7 MMOL/L (3.5-5.1) Chloride Level 111 MMOL/L (98-107) H Carbon Dioxide Level 19 MMOL/L (21-32) L Anion Gap 11 mmol/L (5-15) Blood Urea Nitrogen 70 mg/dL (7-18) H Creatinine 2.4 MG/DL (0.55-1.30) H Estimat Glomerular Filtration Rate mL/min (>60) Glucose Level 144 MG/DL (74-106) H Uric Acid 8.0 MG/DL (2.6-7.2) H Calcium Level 7.5 MG/DL (8.5-10.1) L Phosphorus Level 4.7 MG/DL (2.5-4.9) Magnesium Level 2.5 MG/DL (1.8-2.4) H Total Bilirubin 0.1 MG/DL (0.2-1.0) L Gamma Glutamyl Transpeptidase 7 U/L (5-85) Aspartate Amino Transf (AST/SGOT) 118 U/L (15-37) H Alanine Aminotransferase (ALT/SGPT) 70 U/L (12-78) Alkaline Phosphatase 53 U/L (46-116) Total Creatine Kinase 2041 U/L (26-308) H Troponin I 3.591 ng/mL (0.000-0.056) Total Protein 5.4 G/DL (6.4-8.2) L Albumin 2.1 G/DL (3.4-5.0) L Globulin 3.3 g/dL Albumin/Globulin Ratio 0.6 (1.0-2.7) L Mushtaq Copeland MD Sep 07, 2018 15:28
[2018-09-07] MEDS: cefTRIAXone 1 GM in NS 55 ML IVPB SCH (15:42)
--- NOTE | 2018-09-07 16:40 | NUR ---
NURSE NOTES: pt off unit for V/Q scan. pt on monitor, vss. informed pt of purpose of scan and need to stay still and lay flat. no acute distress noted.
--- NOTE | 2018-09-07 17:25 | Consultation ---
History of Present Illness General Date patient seen: Sep 07, 2018 Chief Complaint: Multiple Trauma/Fall Present Illness Allergies: Coded Allergies: No Known Allergies (Verified , 10/20/11) Medication History Scheduled Acetaminophen With Codeine (T#3) (Tylenol #3 Tab*), 1 TAB ORAL BID, (Reported) Aspirin (Aspirin EC), 81 MG ORAL DAILY, (Reported) Atorvastatin Calcium* (Atorvastatin Calcium*), 10 MG ORAL BEDTIME, (Reported) Celecoxib* (Celebrex*), 200 MG ORAL DAILY, (Reported) Esomeprazole Magnesium (Nexium), 40 MG ORAL DAILY, (Reported) Furosemide* (Lasix*), 20 MG ORAL DAILY, (Reported) Lidocaine (Lidoderm), 2 PATCH TOPIC DAILY, (Reported) Pioglitazone Hcl* (Actos*), 15 MG ORAL DAILY, (Reported) Pregabalin (Lyrica), 50 MG ORAL HS, (Reported) Raloxifene Hcl* (Evista*), 60 MG ORAL DAILY, (Reported) Valsartan (Diovan), 1 TAB ORAL DAILY, (Reported) Discontinued Medications Olmesartan Medoxomil (Benicar), 5 MG ORAL DAILY, (Reported) Discontinued Reason: Pt stopped taking med Pioglitazone Hcl* (Actos*), 40 MG ORAL DAILY, (Reported) Discontinued Reason: Prescription changed Patient History Healthcare decision maker Nessa Huizar(Daughter) Resuscitation status Do Not Resuscitate Advanced Directive on File No Physical Exam Last 24 Hour Vital Signs Date Time Temp Pulse Resp B/P (MAP) Pulse Ox O2 Delivery O2 Flow Rate FiO2 09/07/18 13:14 115 22 100 Nasal Cannula 2.0 28 09/07/18 13:03 116 21 99 Nasal Cannula 3.0 32 09/07/18 13:00 108 21 Nasal Cannula 3.0 32 09/07/18 13:00 114 23 142/83 100 Nasal Cannula 2.0 09/07/18 12:00 98.8 116 24 157/76 99 Nasal Cannula 2.0 09/07/18 12:00 Nasal Cannula 2.0 09/07/18 12:00 116 09/07/18 11:00 99 14 142/83 100 Nasal Cannula 2.0 09/07/18 10:00 90 14 103/48 100 Nasal Cannula 2.0 09/07/18 09:28 83 112/60 09/07/18 09:00 87 12 105/61 100 Nasal Cannula 2.0 09/07/18 08:00 98.6 92 21 120/108 100 Nasal Cannula 2.0 09/07/18 08:00 76 09/07/18 08:00 Nasal Cannula 2.0 09/07/18 07:43 Nasal Cannula 2.0 28 09/07/18 07:43 95 Nasal Cannula 2.0 28 09/07/18 07:00 74 14 103/48 100 Nasal Cannula 2.0 09/07/18 06:00 98.9 73 15 118/50 100 Nasal Cannula 2.0 09/07/18 05:00 72 14 111/43 100 Nasal Cannula 2.0 09/07/18 04:00 99.8 69 11 96/55 100 Nasal Cannula 2.0 09/07/18 04:00 82 09/07/18 04:00 Nasal Cannula 2.0 09/07/18 03:00 69 11 106/52 100 Nasal Cannula 2.0 09/07/18 02:00 69 15 112/48 100 Nasal Cannula 2.0 09/07/18 01:00 68 15 101/48 99 Nasal Cannula 2.0 09/07/18 00:00 Nasal Cannula 2.0 09/07/18 00:00 85 09/07/18 00:00 99.4 85 22 102/49 100 Nasal Cannula 2.0 09/06/18 23:00 85 15 99/44 99 Nasal Cannula 2.0 09/06/18 22:00 99.6 79 18 104/63 99 Nasal Cannula 2.0 09/06/18 21:00 91 18 108/35 99 Nasal Cannula 2.0 09/06/18 20:26 100.2 09/06/18 20:00 Nasal Cannula 2.0 09/06/18 20:00 98 126/65 09/06/18 20:00 100.8 101 22 130/55 99 Nasal Cannula 2.0 09/06/18 20:00 89 09/06/18 19:00 98 22 126/65 99 Nasal Cannula 2.0 09/06/18 18:00 102 19 141/55 99 Nasal Cannula 2.0 Intake and Output 09/06/18 09/07/18 19:00 07:00 Intake Total 2472.416 ml 1900 ml Output Total 355 ml 305 ml Balance 2117.416 ml 1595 ml Intake Oral 950 ml 300 ml IV Total 1522.416 ml 1600 ml Output Urine Total 355 ml 305 ml # Bowel Movements 1 Laboratory Tests Test 09/07/18 04:35 White Blood Count 8.7 K/UL (4.8-10.8) Red Blood Count 2.62 M/UL (4.20-5.40) L Hemoglobin 9.0 G/DL (12.0-16.0) L Hematocrit 28.4 % (37.0-47.0) L Mean Corpuscular Volume 109 FL (80-99) H Mean Corpuscular Hemoglobin 34.4 PG (27.0-31.0) H Mean Corpuscular Hemoglobin Concent 31.7 G/DL (32.0-36.0) L Red Cell Distribution Width 13.6 % (11.6-14.8) Platelet Count 134 K/UL (150-450) L Mean Platelet Volume 7.4 FL (6.5-10.1) Neutrophils (%) (Auto) 84.3 % (45.0-75.0) H Lymphocytes (%) (Auto) 7.4 % (20.0-45.0) L Monocytes (%) (Auto) 7.4 % (1.0-10.0) Eosinophils (%) (Auto) 0.5 % (0.0-3.0) Basophils (%) (Auto) 0.4 % (0.0-2.0) Sodium Level 141 MMOL/L (136-145) Potassium Level 3.7 MMOL/L (3.5-5.1) Chloride Level 111 MMOL/L (98-107) H Carbon Dioxide Level 19 MMOL/L (21-32) L Anion Gap 11 mmol/L (5-15) Blood Urea Nitrogen 70 mg/dL (7-18) H Creatinine 2.4 MG/DL (0.55-1.30) H Estimat Glomerular Filtration Rate mL/min (>60) Glucose Level 144 MG/DL (74-106) H Uric Acid 8.0 MG/DL (2.6-7.2) H Calcium Level 7.5 MG/DL (8.5-10.1) L Phosphorus Level 4.7 MG/DL (2.5-4.9) Magnesium Level 2.5 MG/DL (1.8-2.4) H Total Bilirubin 0.1 MG/DL (0.2-1.0) L Gamma Glutamyl Transpeptidase 7 U/L (5-85) Aspartate Amino Transf (AST/SGOT) 118 U/L (15-37) H Alanine Aminotransferase (ALT/SGPT) 70 U/L (12-78) Alkaline Phosphatase 53 U/L (46-116) Total Creatine Kinase 2041 U/L (26-308) H Troponin I 3.591 ng/mL (0.000-0.056) Total Protein 5.4 G/DL (6.4-8.2) L Albumin 2.1 G/DL (3.4-5.0) L Globulin 3.3 g/dL Albumin/Globulin Ratio 0.6 (1.0-2.7) L Height (Feet): 5 Height (Inches): 1.00 Weight (Pounds): 143 Medications Current Medications Medications (Trade) Dose Ordered Sig/Nikita Route PRN Reason Start Time Stop Time Status Last Admin Dose Admin Acetaminophen (Tylenol) 650 mg Q6H PRN ORAL Mild Pain/Temp > 100.5 09/05/18 19:45 10/05/18 19:44 09/07/18 15:42 Acetaminophen/ Hydrocodone Bitart ([place] 5/325) 1 tab Q6H PRN ORAL Moderate Pain (Pain Scale 4-6) 09/06/18 09:45 09/13/18 09:44 09/07/18 11:44 Albuterol/ Ipratropium (Albuterol/ Ipratropium) 3 ml Q6HRT HHN 09/07/18 13:00 09/12/18 08:59 09/07/18 13:03 Allopurinol (Allopurinol) 300 mg DAILY ORAL 09/07/18 09:00 10/07/18 08:59 09/07/18 09:27 Aspirin (Ecotrin) 81 mg DAILY ORAL 09/06/18 09:00 10/06/18 08:59 09/07/18 09:27 Atorvastatin Calcium (Lipitor) 10 mg QHS ORAL 09/05/18 20:00 10/05/18 19:59 09/06/18 19:58 Ceftriaxone Sodium 1 gm/ Sodium Chloride 55 ml @ 110 mls/hr Q24HRS IVPB 09/06/18 15:00 09/13/18 14:59 09/07/18 15:42 Dextrose (Dextrose 50%) 25 ml Q30M PRN IV Hypoglycemia 09/05/18 17:45 10/05/18 17:44 Dextrose (Dextrose 50%) 50 ml Q30M PRN IV Hypoglycemia 09/05/18 19:00 10/05/18 18:59 Epoetin James (Epoetin James-EPBX(NON ESRD)) 10,000 unit MON-MON-MON SUBQ 09/07/18 21:00 10/07/18 20:59 Heparin Sodium (Porcine) (Heparin 5000 units/ml) 5,000 units EVERY 12 HOURS SUBQ 09/06/18 21:00 10/06/18 20:59 09/07/18 09:31 Insulin Aspart (NovoLOG) BEFORE MEALS AND HS SUBQ 09/05/18 21:00 10/05/18 20:59 09/07/18 16:27 Lidocaine (Lidoderm 5% PATCH) 2 patch DAILY TDERMAL 09/06/18 14:00 10/06/18 13:59 09/07/18 09:29 Metoprolol Tartrate (Lopressor) 25 mg Q12HR ORAL 09/07/18 21:00 10/05/18 20:59 Pantoprazole (Protonix) 40 mg EVERY 12 HOURS ORAL 09/07/18 21:00 10/07/18 20:59 Pregabalin (Lyrica) 50 mg BEDTIME ORAL 09/05/18 21:00 10/05/18 20:59 09/06/18 19:59 Sodium Chloride 1,000 ml @ 125 mls/hr Q8H IV 09/05/18 18:00 10/05/18 17:59 09/07/18 09:28 Vancomycin HCl (Vanco rx to dose) 1 ea DAILY PRN MISC Per rx protocol 09/06/18 08:15 10/06/18 08:14 Assessment/Plan Assessment/Plan Hematology Consultation Date patient seen: Sep 07, 2018 KD PACHECO: Boby Reason for Hospitalization: Multiple Trauma/Fall RFC: Anemia and low platelets HPI 88 year old woman with diabetes, hypertension, and hypercholesterolemia who comes from home accompanied by her daughter who is an RN and provides much of the history. Patient was reportedly found down on the ground for 24 hours - unsure if she fell. No chest pain, dyspnea or palpitations. In ED she was noted to have elevated creatinine, potassium, CK and troponin levels. Also with abnormal UA with pyuria. She was seen by Cardiology and is being admitted to the ICU for suspected NSTEMI and medical management. Of note, imaging of the hips including plain films and CT negative for acute fracture. Per daughter she is DNR and she would not want intubation or CPR. Currently off anticoag, seen by several services. social history: no alcohol or tobaccio family history: no premature CAD Coded Allergies: No Known Allergies (Verified , 10/20/11) Medications Scheduled Acetaminophen With Codeine (T#3) (Tylenol #3 Tab*), 1 TAB ORAL BID, (Reported) Aspirin (Aspirin EC), 81 MG ORAL DAILY, (Reported) Atorvastatin Calcium* (Atorvastatin Calcium*), 10 MG ORAL BEDTIME, (Reported) Celecoxib* (Celebrex*), 200 MG ORAL DAILY, (Reported) Esomeprazole Magnesium (Nexium), 40 MG ORAL DAILY, (Reported) Esomeprazole Magnesium (Nexium), 40 MG ORAL DAILY, (Reported) Furosemide* (Lasix*), 20 MG ORAL DAILY, (Reported) Lidocaine (Lidoderm), 2 PATCH TOPIC DAILY, (Reported) Pioglitazone Hcl* (Actos*), 15 MG ORAL DAILY, (Reported) Pregabalin (Lyrica), 50 MG ORAL HS, (Reported) Raloxifene Hcl* (Evista*), 60 MG ORAL DAILY, (Reported) Valsartan (Diovan), 1 TAB ORAL DAILY, (Reported) Discontinued Medications Olmesartan Medoxomil (Benicar), 5 MG ORAL DAILY, (Reported) Discontinued Reason: Pt stopped taking med Pioglitazone Hcl* (Actos*), 40 MG ORAL DAILY, (Reported) Discontinued Reason: Prescription changed Healthcare decision maker Resuscitation status Advanced Directive on File Review of Systems Constitutional: Denies: chills, fever Eye: Denies: eye pain ENT: Denies: ear pain Respiratory: Denies: cough Cardiovascular: Denies: chest pain Gastrointestinal: Denies: abdominal pain Genitourinary: Denies: discharge Musculoskeletal: Denies: back pain Skin: Denies: rash Neurological: Denies: headache Physical Exam General Appearance: no apparent distress, alert HEENT: normocephalic, atraumatic Neck: non-tender, normal alignment Respiratory/Chest: chest wall non-tender Abdomen: normal bowel sounds, non tender, soft Extremities: normal range of motion, other - Tender right knee ttp better Neurologic: home health outreach coordinator II-XII grossly normal Musculoskeletal: normal muscle bulk, no effusion Last 24 Hour Vital Signs Date Time Temp Pulse Resp B/P (MAP) Pulse Ox O2 Delivery O2 Flow Rate FiO2 09/07/18 13:14 115 22 100 Nasal Cannula 2.0 28 09/07/18 13:03 116 21 99 Nasal Cannula 3.0 32 09/07/18 13:00 108 21 Nasal Cannula 3.0 32 09/07/18 13:00 114 23 142/83 100 Nasal Cannula 2.0 09/07/18 12:00 98.8 116 24 157/76 99 Nasal Cannula 2.0 09/07/18 12:00 Nasal Cannula 2.0 09/07/18 12:00 116 09/07/18 11:00 99 14 142/83 100 Nasal Cannula 2.0 09/07/18 10:00 90 14 103/48 100 Nasal Cannula 2.0 09/07/18 09:28 83 112/60 09/07/18 09:00 87 12 105/61 100 Nasal Cannula 2.0 09/07/18 08:00 98.6 92 21 120/108 100 Nasal Cannula 2.0 09/07/18 08:00 76 09/07/18 08:00 Nasal Cannula 2.0 09/07/18 07:43 Nasal Cannula 2.0 28 09/07/18 07:43 95 Nasal Cannula 2.0 28 09/07/18 07:00 74 14 103/48 100 Nasal Cannula 2.0 09/07/18 06:00 98.9 73 15 118/50 100 Nasal Cannula 2.0 09/07/18 05:00 72 14 111/43 100 Nasal Cannula 2.0 09/07/18 04:00 99.8 69 11 96/55 100 Nasal Cannula 2.0 09/07/18 04:00 82 09/07/18 04:00 Nasal Cannula 2.0 09/07/18 03:00 69 11 106/52 100 Nasal Cannula 2.0 09/07/18 02:00 69 15 112/48 100 Nasal Cannula 2.0 09/07/18 01:00 68 15 101/48 99 Nasal Cannula 2.0 09/07/18 00:00 Nasal Cannula 2.0 09/07/18 00:00 85 09/07/18 00:00 99.4 85 22 102/49 100 Nasal Cannula 2.0 09/06/18 23:00 85 15 99/44 99 Nasal Cannula 2.0 09/06/18 22:00 99.6 79 18 104/63 99 Nasal Cannula 2.0 09/06/18 21:00 91 18 108/35 99 Nasal Cannula 2.0 09/06/18 20:26 100.2 09/06/18 20:00 Nasal Cannula 2.0 09/06/18 20:00 98 126/65 09/06/18 20:00 100.8 101 22 130/55 99 Nasal Cannula 2.0 09/06/18 20:00 89 09/06/18 19:00 98 22 126/65 99 Nasal Cannula 2.0 09/06/18 18:00 102 19 141/55 99 Nasal Cannula 2.0 Laboratory Tests Test 09/05/18 14:00 09/05/18 14:13 Urine Color Pale yellow Urine Appearance Turbid Urine pH 5 (4.5-8.0) Urine Specific [place] 1.015 (1.005-1.035) Urine Protein 3+ (NEGATIVE) H Urine Glucose (UA) Negative (NEGATIVE) Urine Ketones 1+ (NEGATIVE) H Urine Blood 4+ (NEGATIVE) H Urine Nitrite Negative (NEGATIVE) Urine Bilirubin Negative (NEGATIVE) Urine Urobilinogen Normal MG/DL (0.0-1.0) Urine Leukocyte Esterase 3+ (NEGATIVE) H Urine RBC 2-4 /HPF (0 - 2) H Urine WBC 60-80 /HPF (0 - 2) H Urine Squamous Epithelial Cells Few /LPF (NONE/OCC) Urine Bacteria Many /HPF (NONE) H White Blood Count 10.3 K/UL (4.8-10.8) Red Blood Count 3.06 M/UL (4.20-5.40) L Hemoglobin 10.7 G/DL (12.0-16.0) L Hematocrit 33.6 % (37.0-47.0) L Mean Corpuscular Volume 110 FL (80-99) H Mean Corpuscular Hemoglobin 35.0 PG (27.0-31.0) H Mean Corpuscular Hemoglobin Concent 31.9 G/DL (32.0-36.0) L Red Cell Distribution Width 13.6 % (11.6-14.8) Platelet Count 146 K/UL (150-450) L Mean Platelet Volume 7.2 FL (6.5-10.1) Neutrophils (%) (Auto) % (45.0-75.0) Lymphocytes (%) (Auto) % (20.0-45.0) Monocytes (%) (Auto) % (1.0-10.0) Eosinophils (%) (Auto) % (0.0-3.0) Basophils (%) (Auto) % (0.0-2.0) Differential Total Cells Counted 100 Neutrophils % (Manual) 72 % (45-75) Lymphocytes % (Manual) 5 % (20-45) L Monocytes % (Manual) 7 % (1-10) Eosinophils % (Manual) 0 % (0-3) Basophils % (Manual) 0 % (0-2) Band Neutrophils 16 % (0-8) H Platelet Estimate Decreased L Platelet Morphology Normal Hypochromasia 1+ Anisocytosis 1+ Prothrombin Time 10.3 SEC (9.30-11.50) Prothromb Time International Ratio 1.0 (0.9-1.1) Activated Partial Thromboplast Time 31 SEC (23-33) D-Dimer 4.93 mg/L FEU (0.00-0.49) H Sodium Level 140 MMOL/L (136-145) Potassium Level 5.7 MMOL/L (3.5-5.1) H Chloride Level 108 MMOL/L (98-107) H Carbon Dioxide Level 18 MMOL/L (21-32) L Anion Gap 14 mmol/L (5-15) Blood Urea Nitrogen 66 mg/dL (7-18) H Creatinine 2.6 MG/DL (0.55-1.30) H Estimat Glomerular Filtration Rate mL/min (>60) Glucose Level 181 MG/DL (74-106) H Calcium Level 9.0 MG/DL (8.5-10.1) Total Bilirubin 0.4 MG/DL (0.2-1.0) Aspartate Amino Transf (AST/SGOT) 299 U/L (15-37) H Alanine Aminotransferase (ALT/SGPT) 98 U/L (12-78) H Alkaline Phosphatase 72 U/L (46-116) Total Creatine Kinase 7665 U/L (26-308) H Troponin I 28.022 ng/mL (0.000-0.056) Total Protein 7.1 G/DL (6.4-8.2) Albumin 3.1 G/DL (3.4-5.0) L Globulin 4.0 g/dL Albumin/Globulin Ratio 0.8 (1.0-2.7) L Height (Feet): 5 Weight (Pounds): 145 Medications Current Medications Medications (Trade) Dose Ordered Sig/Nikita Route PRN Reason Start Time Stop Time Status Last Admin Dose Admin Aspirin (Ecotrin) 81 mg DAILY ORAL 09/06/18 09:00 10/06/18 08:59 Atorvastatin Calcium (Lipitor) 10 mg ONCE ONCE ORAL 09/05/18 17:00 09/05/18 17:01 UNV Ceftriaxone Sodium 1 gm/ Sodium Chloride 55 ml @ 110 mls/hr Q24HRS ONCE IVPB 09/05/18 18:00 09/05/18 18:29 UNV Dextrose (Dextrose 50%) 25 ml Q30M PRN IV Hypoglycemia 09/05/18 17:45 10/05/18 17:44 UNV Dextrose (Dextrose 50%) 50 ml Q30M PRN IV Hypoglycemia 09/05/18 17:45 10/05/18 17:44 UNV Enoxaparin Sodium (Lovenox) 60 mg Q24H SUBQ 09/05/18 18:00 10/05/18 17:59 Insulin Aspart (NovoLOG) BEFORE MEALS AND HS SUBQ 09/05/18 21:00 10/05/18 20:59 UNV Lidocaine (Lidoderm 5% PATCH) 2 patch DAILY TDERMAL 09/06/18 09:00 10/06/18 08:59 UNV Metoprolol Tartrate (Lopressor) 12.5 mg Q12HR ORAL 09/05/18 21:00 10/05/18 20:59 UNV Pregabalin (Lyrica) 50 mg BEDTIME ORAL 09/05/18 21:00 10/05/18 20:59 UNV Sodium Polystyrene Sulfonate (Kayexalate) 30 gm ONCE ORAL 09/05/18 17:45 09/05/18 20:00 Sodium Chloride 1,000 ml @ 125 mls/hr Q8H IV 09/05/18 18:00 10/05/18 17:59 Assessment/Plan: # Thrombocytopenia - potential causes multifactorial, evaluate liver and viral etiologies to begin, also could be related to underlying medications patient has received. --> Hep panel and HIV ordered --> US abd to evaluate for cirrhosis and hsm ordered --> Peripheral smear ordered to evaluate for blasts /schistocytes --> abx and other meds have been reviewed --> ok for ppx if plt >50k w/ either heparin or lovenox --> Transfuse if Plt < 20k and fever, or if Plt < 10k without fever # Anemia of chronic disease due to underlying chronic medical issues, multifactorial, ferritin elev --> Anemia workup has been ordered and reviewed --> No evidence of hemolysis is noted, peripheral smear has been reviewed. --> Hgb goal >7. Transfuse prn. --> Epogen or iron at this time is not particularly indicated --> Medications have been reviewed # Fall , ground level --> pt/ot as needed, prn # Rhabdomyolysis --> ivf to be given # HAIR # Hyperkalemia # Possible NSTEMI --> seen by Cardiology --> off anticoag, appreciate cards recs # Possible UTI --> start ceftriaxone --> follow up urine culture # Type 2 DM --> lispro SS # HTN --> sbp goal <150 # DNR The timing of this note does not necessarily reflect the time of the patient was seen. Greatly appreciate consultation! Balbir Allison MD Sep 07, 2018 17:24
--- NOTE | 2018-09-07 19:50 | NUR ---
HAND-OFF: Report given to GIOVANNI.
--- NOTE | 2018-09-07 20:11 | NUR ---
NURSE NOTES: Received report from ROQUE Rdoríguez. Patient in bed awake,alert spanish speaking complained of 6/10 bilateral knee pain elevated with pillow,talk therapy provided, repositioned and Offered snacks not effective. [place] 5/325mg 1 tab po given, will monitor. Encouraged patient to verbalize needs, fears and feelings to staff, translated by Kody Perez RN. Instructed patient to use call light for assistance. Right wrist and right hand IV site intact running NS at 125cc/hr. HOB elevated. On 02 2L via N/C. Bed alarm on. Bed locked and in low position. Michelle draining. Will continue plan of care.
[2018-09-07] MEDS: Lyrica 50mg cap ORAL SCH (20:12)
[2018-09-07] MEDS ORDERED: Epoetin Alfa-EPBX (NON ESRD)10,000 unit/ml vial SUBQ SCH (21:00)
--- NOTE | 2018-09-07 21:00 | NUR ---
NURSE NOTES: Patient in bed restless, repositioned. Denies any pain or discomfort at this time.
--- NOTE | 2018-09-07 23:00 | NUR ---
NURSE NOTES: Repositioned. bed bath given. Michelle draining. No s/s of hypo/hyperglycemia. All needs attended promptly. Will continue plan of care.
--- NOTE | 2018-09-07 23:35 | Cardiology Report ---
APPROVED REPORT EKG Measurement Heart [id number] Normal sinus rhythm Abnormal ECG
--- NOTE | 2018-09-07 23:37 | Cardiology Report ---
APPROVED REPORT EKG Measurement Heart [id number] Normal sinus rhythm Low voltage QRS Borderline ECG
[2018-09-08] VITALS (14 sets, daily range): BP systolic 100–148; BP diastolic 41–75
[2018-09-08] MEDS: Albuterol/Ipratropium 3ml neb HHN SCH ×5 (01:15→19:00)
--- NOTE | 2018-09-08 03:00 | NUR ---
NURSE NOTES: TEmp 100.6 cooling measure provided not effective patient wants 3 blankets explained the importance v/s risk and benefits of cooling measure and removing 3 blanket with fair understanding. Tylenol 650mg tab po given Temp 99.3 at 0300. Will continue to monitor. Drank 60cc water tolerated well.
[2018-09-08 05:29] LABS: HEMATOCRIT 27.6 % (37.0-47.0); HEMOGLOBIN 8.6 G/DL (12.0-16.0); MEAN CORPUSCULAR VOLUME 111 FL (80-99); PLATELET COUNT 123 K/UL (150-450); RED BLOOD COUNT 2.49 M/UL (4.20-5.40); RED CELL DISTRIBUTION WIDTH 13.9 % (11.6-14.8); WHITE BLOOD COUNT 6.8 K/UL (4.8-10.8)
[2018-09-08] MEDS: Norco 5mg/325mg tab ORAL PRN ×2 (05:42→16:46)
[2018-09-08] MEDS: NovoLOG Insulin Flexpen SUBQ SCH ×4 (05:49→20:36)
[2018-09-08 05:52] LABS: ALANINE AMINOTRANSFERASE 61 U/L (12-78); ALBUMIN 1.9 G/DL (3.4-5.0); ALBUMIN/GLOBULIN RATIO 0.6 (1.0-2.7); ALKALINE PHOSPHATASE 54 U/L (46-116); ANION GAP 9 mmol/L (5-15); ASPARTATE AMINO TRANSFERASE 77 U/L (15-37); BILIRUBIN,TOTAL 0.3 MG/DL (0.2-1.0); BLOOD UREA NITROGEN 64 mg/dL (7-18); CALCIUM 7.7 MG/DL (8.5-10.1); CARBON DIOXIDE 20 MMOL/L (21-32); CHLORIDE 112 MMOL/L (98-107); CREATININE 2.4 MG/DL (0.55-1.30); POTASSIUM 3.4 MMOL/L (3.5-5.1); SODIUM 141 MMOL/L (136-145)
[2018-09-08 06:04] LABS: CREATINE KINASE 1178 U/L (26-308); GAMMA GLUTAMYL TRANSPEPTIDASE 6 U/L (5-85); PHOSPHORUS 3.8 MG/DL (2.5-4.9)
--- NOTE | 2018-09-08 06:15 | NUR ---
NURSE NOTES: Patient complained of 5/10 bilateral knee pain elevated with pillow,talk therapy provided, repositioned and Offered snacks not effective. [place] 5/325mg 1 tab po given, effective.
--- NOTE | 2018-09-08 07:30 | NUR ---
NURSE NOTES: Received patient from ROQUE Hogan. Patient awake, alert and orientedx3, resting in bed. No acute distress noted. No c/o pain when resting. patient on 2L O2 via NC, saturating 98%. SR noted on the monitor. Right wrist 22G and right hand 22G intact and patient, running NS at 125ml/hr. wound dressings i/c/d. Michelle cath intact and patent, draining yellow urine by gravity. VSS. Bed in lowest position. Call light within reach. Bed alarms on. Will continue to monitor.
--- NOTE | 2018-09-08 07:31 | NUR ---
HAND-OFF: Report given to Bere Mukherjee RN.Patient in bed denies any pain or discomfort. Noted patient with wheezing, patient currently receiving breathing treatment.
[2018-09-08] MEDS ORDERED: Vancomycin 1gm/D5W 275ml IVPB SCH ×2 (08:00)
[2018-09-08] MEDS: Heparin 5000 units/ml inj SUBQ SCH ×2 (09:00→20:34)
[2018-09-08] MEDS: Metoprolol 25mg tab ORAL SCH ×2 (09:03→20:33)
[2018-09-08] MEDS: Aspirin EC 81mg tab ORAL SCH (09:03)
--- NOTE | 2018-09-08 09:45 | NUR ---
NURSE NOTES: Dr. Collier at bedside to assess the patient. made aware of expiratory wheezing. to continue breathing tx. No new orders at this time.
--- NOTE | 2018-09-08 10:57 | General Progress Note ---
Assessment/Plan Assessment/Plan #Fall #Rhabdomyolysis, resolving #HAIR, improved renal function #Hyperkalemia, improved #Metabolic acidosis, improving -Will stop IV fluids -monitor CK levels -avoid nephrotoxic meds -monitor daily BMP #NSTEMI -Cardiology following -Anticoagulation stoped per Cardiology recs -continue ASA,Statin, B-millie -TTE -Cardiac monitoring #Right knee swelling and pain #Elevated CRP -Ortho eval appreciated -no indication for arthrocentesis at this time #Severe sepsis, present on admission #E. coli UTI -continue ceftriaxone #Type 2 DM -hold Actos -lispro SS #HTN, borderline blood pressures -hold Diovan and Lasix with HAIR -monitor BP VTE PPx heparin DNR Subjective Date patient seen: Sep 08, 2018 Time patient seen: 10:49 Constitutional: Denies: chills, fever Cardiovascular: Denies: chest pain, irregular heart rate Respiratory: Denies: cough, shortness of breath Gastrointestinal/Abdominal: Denies: abdominal pain Allergies: Coded Allergies: No Known Allergies (Verified , 10/20/11) Subjective Medicine followup for multiple medical problems including rhbadomyolysis, NSTEMI , severe sepsis due to UTI, HAIR, metabolic acidosis. Objective Last 24 Hour Vital Signs Date Time Temp Pulse Resp B/P (MAP) Pulse Ox O2 Delivery O2 Flow Rate FiO2 09/08/18 10:00 86 23 105/55 97 Nasal Cannula 2.0 09/08/18 09:03 91 121/48 09/08/18 08:00 91 09/08/18 08:00 98.3 90 24 109/41 96 Nasal Cannula 2.0 09/08/18 08:00 Nasal Cannula 2.0 09/08/18 07:21 81 20 100 Nasal Cannula 2.0 28 09/08/18 07:20 Nasal Cannula 2.0 28 09/08/18 07:20 100 Nasal Cannula 2.0 28 09/08/18 07:14 77 20 100 Nasal Cannula 3.0 32 09/08/18 07:00 79 23 102/75 96 Nasal Cannula 2.0 09/08/18 06:12 98.8 09/08/18 06:00 77 23 100/41 96 Nasal Cannula 2.0 09/08/18 05:00 77 23 106/46 96 Nasal Cannula 2.0 09/08/18 04:00 Nasal Cannula 2.0 09/08/18 04:00 80 09/08/18 04:00 98.8 96 23 107/60 96 Nasal Cannula 2.0 09/08/18 03:00 96 23 107/54 96 Nasal Cannula 2.0 09/08/18 02:48 100.0 09/08/18 02:00 100.6 96 23 111/45 96 Nasal Cannula 2.0 09/08/18 01:25 92 22 100 Nasal Cannula 2.0 28 09/08/18 01:15 90 22 97 Nasal Cannula 3.0 32 09/08/18 01:00 96 23 111/45 96 Nasal Cannula 2.0 09/08/18 00:00 86 09/08/18 00:00 Nasal Cannula 2.0 09/08/18 00:00 99.0 88 23 110/45 96 Nasal Cannula 2.0 09/07/18 23:00 88 23 111/45 100 Nasal Cannula 2.0 09/07/18 22:00 91 23 112/65 100 Nasal Cannula 2.0 09/07/18 21:00 102 23 97/44 100 Nasal Cannula 2.0 09/07/18 20:10 111 133/47 09/07/18 20:00 103 09/07/18 20:00 98.6 111 21 133/47 100 Nasal Cannula 2.0 09/07/18 20:00 Nasal Cannula 2.0 09/07/18 19:33 Nasal Cannula 2.0 28 09/07/18 19:33 97 Nasal Cannula 2.0 28 09/07/18 19:26 105 22 98 Nasal Cannula 2.0 28 09/07/18 19:16 100 22 98 Nasal Cannula 3.0 32 09/07/18 19:00 114 23 142/83 100 Nasal Cannula 2.0 09/07/18 18:00 111 26 137/75 100 Nasal Cannula 2.0 09/07/18 17:00 106 23 138/63 98 Nasal Cannula 2.0 09/07/18 16:00 Nasal Cannula 2.0 09/07/18 16:00 98.6 99 21 130/58 100 Nasal Cannula 2.0 09/07/18 16:00 104 09/07/18 15:00 104 27 150/55 100 Nasal Cannula 2.0 09/07/18 14:00 108 25 108/53 100 Nasal Cannula 2.0 09/07/18 13:14 115 22 100 Nasal Cannula 2.0 28 09/07/18 13:03 116 21 99 Nasal Cannula 3.0 32 09/07/18 13:00 108 21 Nasal Cannula 3.0 32 09/07/18 13:00 114 23 142/83 100 Nasal Cannula 2.0 09/07/18 12:00 98.8 116 24 157/76 99 Nasal Cannula 2.0 09/07/18 12:00 Nasal Cannula 2.0 09/07/18 12:00 116 09/07/18 11:00 99 14 142/83 100 Nasal Cannula 2.0 Intake and Output 09/07/18 09/08/18 19:00 07:00 Intake Total 1590 ml 1680 ml Output Total 490 ml 715 ml Balance 1100 ml 965 ml Intake Oral 480 ml 180 ml IV Total 1110 ml 1500 ml Output Urine Total 490 ml 715 ml # Voids 60 Laboratory Tests 09/07/18 19:03: Hepatitis A IgM Antibody Negative, Hepatitis B Surface Antigen Negative, Hepatitis B Core IgM Antibody Negative, Hepatitis C Antibody <0.1 09/08/18 05:10: White Blood Count 6.8, Red Blood Count 2.49L, Hemoglobin 8.6L, Hematocrit 27.6L , Mean Corpuscular Volume 111H, Mean Corpuscular Hemoglobin 34.7H, Mean Corpuscular Hemoglobin Concent 31.3L, Red Cell Distribution Width 13.9, Platelet Count 123L, Mean Platelet Volume 7.4, Neutrophils (%) (Auto) , Lymphocytes (%) (Auto) , Monocytes (%) (Auto) , Eosinophils (%) (Auto) , Basophils (%) (Auto) , Differential Total Cells Counted 100, Neutrophils % ( Manual) 72, Lymphocytes % (Manual) 11L, Monocytes % (Manual) 5, Eosinophils % ( Manual) 2, Basophils % (Manual) 0, Band Neutrophils 10H, Platelet Estimate DecreasedL, Platelet Morphology Normal, Hypochromasia 1+, Macrocytosis 2+, Sodium Level 141, Potassium Level 3.4L, Chloride Level 112H, Carbon Dioxide Level 20L, Anion Gap 9, Blood Urea Nitrogen 64H, Creatinine 2.4H, Estimat Glomerular Filtration Rate , Glucose Level 179H, Uric Acid 6.6, Calcium Level 7.7L, Phosphorus Level 3.8, Magnesium Level 2.2, Total Bilirubin 0.3, Gamma Glutamyl Transpeptidase 6, Aspartate Amino Transf (AST/SGOT) 77H, Alanine Aminotransferase (ALT/SGPT) 61, Alkaline Phosphatase 54, Total Creatine Kinase 1178H, Troponin I 1.542H, C-Reactive Protein, Quantitative 13.1H, Pro-B-Type Natriuretic Peptide 8151H, Total Protein 5.1L, Albumin 1.9L, Globulin 3.2, Albumin/Globulin Ratio 0.6L, Random Vancomycin Level 6.4 Height (Feet): 5 Height (Inches): 1.00 Weight (Pounds): 165 General Appearance: no apparent distress, alert Neck: normal alignment, supple Cardiovascular: normal rate, regular rhythm Respiratory/Chest: lungs clear, normal breath sounds Abdomen: non tender, soft Extremities: other - Bilateral knee tenderness and swelling Caden Kelsey MD Sep 08, 2018 10:57
--- NOTE | 2018-09-08 11:05 | NUR ---
NURSE NOTES: patient was turned and repositioned. family at bedside.
--- NOTE | 2018-09-08 12:26 | Nephrology Progress Note ---
Assessment/Plan Problem List: (1) Renal failure (ARF), acute on chronic Assessment: Cr lower (2) Diabetic nephropathy (3) Rhabdomyolysis Assessment: CPK lower (4) NSTEMI (non-ST elevated myocardial infarction) Assessment Acute Renal Failure- possibly superimposed on chronic Fall, Rhabdo High K Myocardial injury ( elevated Troponin) UTI DM with Proteinuria: Likely Diabetic Nephropathy HTN right knee swelling ? Arthritis Plan hydrate urine studies gastric protection cardiology eval 2D echo noted monitor CPK antibiotics per orders Subjective ROS Limited/Unobtainable: No Constitutional: Reports: malaise Objective Objective Last 24 Hour Vital Signs Date Time Temp Pulse Resp B/P (MAP) Pulse Ox O2 Delivery O2 Flow Rate FiO2 09/08/18 12:00 83 09/08/18 12:00 98.6 86 17 119/59 100 Nasal Cannula 2.0 09/08/18 12:00 Nasal Cannula 2.0 09/08/18 11:00 84 17 119/69 100 Nasal Cannula 2.0 09/08/18 10:00 86 23 105/55 97 Nasal Cannula 2.0 09/08/18 09:03 91 121/48 09/08/18 08:00 91 09/08/18 08:00 98.3 90 24 109/41 96 Nasal Cannula 2.0 09/08/18 08:00 Nasal Cannula 2.0 09/08/18 07:21 81 20 100 Nasal Cannula 2.0 28 09/08/18 07:20 Nasal Cannula 2.0 28 09/08/18 07:20 100 Nasal Cannula 2.0 28 09/08/18 07:14 77 20 100 Nasal Cannula 3.0 32 09/08/18 07:00 79 23 102/75 96 Nasal Cannula 2.0 09/08/18 06:12 98.8 09/08/18 06:00 77 23 100/41 96 Nasal Cannula 2.0 09/08/18 05:00 77 23 106/46 96 Nasal Cannula 2.0 09/08/18 04:00 Nasal Cannula 2.0 09/08/18 04:00 80 09/08/18 04:00 98.8 96 23 107/60 96 Nasal Cannula 2.0 09/08/18 03:00 96 23 107/54 96 Nasal Cannula 2.0 09/08/18 02:48 100.0 09/08/18 02:00 100.6 96 23 111/45 96 Nasal Cannula 2.0 09/08/18 01:25 92 22 100 Nasal Cannula 2.0 28 09/08/18 01:15 90 22 97 Nasal Cannula 3.0 32 09/08/18 01:00 96 23 111/45 96 Nasal Cannula 2.0 09/08/18 00:00 86 09/08/18 00:00 Nasal Cannula 2.0 09/08/18 00:00 99.0 88 23 110/45 96 Nasal Cannula 2.0 09/07/18 23:00 88 23 111/45 100 Nasal Cannula 2.0 09/07/18 22:00 91 23 112/65 100 Nasal Cannula 2.0 09/07/18 21:00 102 23 97/44 100 Nasal Cannula 2.0 09/07/18 20:10 111 133/47 09/07/18 20:00 103 09/07/18 20:00 98.6 111 21 133/47 100 Nasal Cannula 2.0 09/07/18 20:00 Nasal Cannula 2.0 09/07/18 19:33 Nasal Cannula 2.0 28 09/07/18 19:33 97 Nasal Cannula 2.0 28 09/07/18 19:26 105 22 98 Nasal Cannula 2.0 28 09/07/18 19:16 100 22 98 Nasal Cannula 3.0 32 09/07/18 19:00 114 23 142/83 100 Nasal Cannula 2.0 09/07/18 18:00 111 26 137/75 100 Nasal Cannula 2.0 09/07/18 17:00 106 23 138/63 98 Nasal Cannula 2.0 09/07/18 16:00 Nasal Cannula 2.0 09/07/18 16:00 98.6 99 21 130/58 100 Nasal Cannula 2.0 09/07/18 16:00 104 09/07/18 15:00 104 27 150/55 100 Nasal Cannula 2.0 09/07/18 14:00 108 25 108/53 100 Nasal Cannula 2.0 09/07/18 13:14 115 22 100 Nasal Cannula 2.0 28 09/07/18 13:03 116 21 99 Nasal Cannula 3.0 32 09/07/18 13:00 108 21 Nasal Cannula 3.0 32 09/07/18 13:00 114 23 142/83 100 Nasal Cannula 2.0 Intake and Output 09/07/18 09/08/18 19:00 07:00 Intake Total 1590 ml 1680 ml Output Total 490 ml 715 ml Balance 1100 ml 965 ml Intake Oral 480 ml 180 ml IV Total 1110 ml 1500 ml Output Urine Total 490 ml 715 ml # Voids 60 Laboratory Tests 09/07/18 19:03: Hepatitis A IgM Antibody Negative, Hepatitis B Surface Antigen Negative, Hepatitis B Core IgM Antibody Negative, Hepatitis C Antibody <0.1 09/08/18 05:10: White Blood Count 6.8, Red Blood Count 2.49L, Hemoglobin 8.6L, Hematocrit 27.6L , Mean Corpuscular Volume 111H, Mean Corpuscular Hemoglobin 34.7H, Mean Corpuscular Hemoglobin Concent 31.3L, Red Cell Distribution Width 13.9, Platelet Count 123L, Mean Platelet Volume 7.4, Neutrophils (%) (Auto) , Lymphocytes (%) (Auto) , Monocytes (%) (Auto) , Eosinophils (%) (Auto) , Basophils (%) (Auto) , Differential Total Cells Counted 100, Neutrophils % ( Manual) 72, Lymphocytes % (Manual) 11L, Monocytes % (Manual) 5, Eosinophils % ( Manual) 2, Basophils % (Manual) 0, Band Neutrophils 10H, Platelet Estimate DecreasedL, Platelet Morphology Normal, Hypochromasia 1+, Macrocytosis 2+, Sodium Level 141, Potassium Level 3.4L, Chloride Level 112H, Carbon Dioxide Level 20L, Anion Gap 9, Blood Urea Nitrogen 64H, Creatinine 2.4H, Estimat Glomerular Filtration Rate , Glucose Level 179H, Uric Acid 6.6, Calcium Level 7.7L, Phosphorus Level 3.8, Magnesium Level 2.2, Total Bilirubin 0.3, Gamma Glutamyl Transpeptidase 6, Aspartate Amino Transf (AST/SGOT) 77H, Alanine Aminotransferase (ALT/SGPT) 61, Alkaline Phosphatase 54, Total Creatine Kinase 1178H, Troponin I 1.542H, C-Reactive Protein, Quantitative 13.1H, Pro-B-Type Natriuretic Peptide 8151H, Total Protein 5.1L, Albumin 1.9L, Globulin 3.2, Albumin/Globulin Ratio 0.6L, Random Vancomycin Level 6.4 Height (Feet): 5 Height (Inches): 1.00 Weight (Pounds): 165 General Appearance: no apparent distress Cardiovascular: tachycardia Respiratory/Chest: decreased breath sounds Abdomen: soft Erick Patterson MD Sep 08, 2018 12:26
--- NOTE | 2018-09-08 13:00 | NUR ---
NURSE NOTES: Okay to transfer to tele room per Dr. Collier. supervisor drilling and shooting made aware.
--- NOTE | 2018-09-08 13:00 | NUR ---
TRANSFER TO FLOOR: Patient transferred to -. Report given to ROQUE Hernandez. Belongings and medications given to primary RN. Family informed of transfer.
--- NOTE | 2018-09-08 13:54 | NUR ---
PT Note Patient has been transferred to telemetry from ICU. Attempted to see patient for PT tx but patient was noted to have audible wheezing. RN was notified. Will hold off on PT today and check again in AM if stable.
--- NOTE | 2018-09-08 13:59 | Cardiac Electrophysiology PN ---
Assessment/Plan Assessment/Plan 1. Non-ST elevation myocardial infarction with troponin of 28, down to 15 and then 3.6 and 1.5 today . Never had any chest pain and could be due to rhabdomyolysis and renal failure DNR and DNI and family does not want cardiac catheterization. Continue aspirin, beta-millie, and statin. Echocardiogram EF 65% 2. Hypertension. Better on Lopressor 25 bid 3. Hyperlipidemia, on Lipitor. 4. Rhabdomyolysis. CPK 7600 to 2000 On IV fluid. 5. Renal failure, creatinine 2.6 down to 2.4. STEPHANIE RN Subjective Subjective Transferred out of ICU. No CP or SOB . Objective Last 24 Hour Vital Signs Date Time Temp Pulse Resp B/P (MAP) Pulse Ox O2 Delivery O2 Flow Rate FiO2 09/08/18 13:12 Nasal Cannula 3.0 32 09/08/18 13:12 Nasal Cannula 2.0 28 09/08/18 12:00 83 09/08/18 12:00 98.6 86 17 119/59 100 Nasal Cannula 2.0 09/08/18 12:00 Nasal Cannula 2.0 09/08/18 11:00 84 17 119/69 100 Nasal Cannula 2.0 09/08/18 10:00 86 23 105/55 97 Nasal Cannula 2.0 09/08/18 09:03 91 121/48 09/08/18 08:00 91 09/08/18 08:00 98.3 90 24 109/41 96 Nasal Cannula 2.0 09/08/18 08:00 Nasal Cannula 2.0 09/08/18 07:21 81 20 100 Nasal Cannula 2.0 28 09/08/18 07:20 Nasal Cannula 2.0 28 09/08/18 07:20 100 Nasal Cannula 2.0 28 09/08/18 07:14 77 20 100 Nasal Cannula 3.0 32 09/08/18 07:00 79 23 102/75 96 Nasal Cannula 2.0 09/08/18 06:12 98.8 09/08/18 06:00 77 23 100/41 96 Nasal Cannula 2.0 09/08/18 05:00 77 23 106/46 96 Nasal Cannula 2.0 09/08/18 04:00 Nasal Cannula 2.0 09/08/18 04:00 80 09/08/18 04:00 98.8 96 23 107/60 96 Nasal Cannula 2.0 09/08/18 03:00 96 23 107/54 96 Nasal Cannula 2.0 09/08/18 02:48 100.0 09/08/18 02:00 100.6 96 23 111/45 96 Nasal Cannula 2.0 09/08/18 01:25 92 22 100 Nasal Cannula 2.0 28 09/08/18 01:15 90 22 97 Nasal Cannula 3.0 32 09/08/18 01:00 96 23 111/45 96 Nasal Cannula 2.0 09/08/18 00:00 86 09/08/18 00:00 Nasal Cannula 2.0 09/08/18 00:00 99.0 88 23 110/45 96 Nasal Cannula 2.0 09/07/18 23:00 88 23 111/45 100 Nasal Cannula 2.0 09/07/18 22:00 91 23 112/65 100 Nasal Cannula 2.0 09/07/18 21:00 102 23 97/44 100 Nasal Cannula 2.0 09/07/18 20:10 111 133/47 09/07/18 20:00 103 09/07/18 20:00 98.6 111 21 133/47 100 Nasal Cannula 2.0 09/07/18 20:00 Nasal Cannula 2.0 09/07/18 19:33 Nasal Cannula 2.0 28 09/07/18 19:33 97 Nasal Cannula 2.0 28 09/07/18 19:26 105 22 98 Nasal Cannula 2.0 28 09/07/18 19:16 100 22 98 Nasal Cannula 3.0 32 09/07/18 19:00 114 23 142/83 100 Nasal Cannula 2.0 09/07/18 18:00 111 26 137/75 100 Nasal Cannula 2.0 09/07/18 17:00 106 23 138/63 98 Nasal Cannula 2.0 09/07/18 16:00 Nasal Cannula 2.0 09/07/18 16:00 98.6 99 21 130/58 100 Nasal Cannula 2.0 09/07/18 16:00 104 09/07/18 15:00 104 27 150/55 100 Nasal Cannula 2.0 09/07/18 14:00 108 25 108/53 100 Nasal Cannula 2.0 Intake and Output 09/07/18 09/08/18 19:00 07:00 Intake Total 1590 ml 1680 ml Output Total 490 ml 715 ml Balance 1100 ml 965 ml Intake Oral 480 ml 180 ml IV Total 1110 ml 1500 ml Output Urine Total 490 ml 715 ml # Voids 60 Laboratory Tests Test 09/07/18 19:03 09/08/18 05:10 Hepatitis A IgM Antibody Negative (Negative) Hepatitis B Surface Antigen Negative (Negative) Hepatitis B Core IgM Antibody Negative (Negative) Hepatitis C Antibody <0.1 s/co ratio White Blood Count 6.8 K/UL (4.8-10.8) Red Blood Count 2.49 M/UL (4.20-5.40) L Hemoglobin 8.6 G/DL (12.0-16.0) L Hematocrit 27.6 % (37.0-47.0) L Mean Corpuscular Volume 111 FL (80-99) H Mean Corpuscular Hemoglobin 34.7 PG (27.0-31.0) H Mean Corpuscular Hemoglobin Concent 31.3 G/DL (32.0-36.0) L Red Cell Distribution Width 13.9 % (11.6-14.8) Platelet Count 123 K/UL (150-450) L Mean Platelet Volume 7.4 FL (6.5-10.1) Neutrophils (%) (Auto) % (45.0-75.0) Lymphocytes (%) (Auto) % (20.0-45.0) Monocytes (%) (Auto) % (1.0-10.0) Eosinophils (%) (Auto) % (0.0-3.0) Basophils (%) (Auto) % (0.0-2.0) Differential Total Cells Counted 100 Neutrophils % (Manual) 72 % (45-75) Lymphocytes % (Manual) 11 % (20-45) L Monocytes % (Manual) 5 % (1-10) Eosinophils % (Manual) 2 % (0-3) Basophils % (Manual) 0 % (0-2) Band Neutrophils 10 % (0-8) H Platelet Estimate Decreased L Platelet Morphology Normal Hypochromasia 1+ Macrocytosis 2+ Sodium Level 141 MMOL/L (136-145) Potassium Level 3.4 MMOL/L (3.5-5.1) L Chloride Level 112 MMOL/L (98-107) H Carbon Dioxide Level 20 MMOL/L (21-32) L Anion Gap 9 mmol/L (5-15) Blood Urea Nitrogen 64 mg/dL (7-18) H Creatinine 2.4 MG/DL (0.55-1.30) H Estimat Glomerular Filtration Rate mL/min (>60) Glucose Level 179 MG/DL (74-106) H Uric Acid 6.6 MG/DL (2.6-7.2) Calcium Level 7.7 MG/DL (8.5-10.1) L Phosphorus Level 3.8 MG/DL (2.5-4.9) Magnesium Level 2.2 MG/DL (1.8-2.4) Total Bilirubin 0.3 MG/DL (0.2-1.0) Gamma Glutamyl Transpeptidase 6 U/L (5-85) Aspartate Amino Transf (AST/SGOT) 77 U/L (15-37) H Alanine Aminotransferase (ALT/SGPT) 61 U/L (12-78) Alkaline Phosphatase 54 U/L (46-116) Total Creatine Kinase 1178 U/L (26-308) H Troponin I 1.542 ng/mL (0.000-0.056) C-Reactive Protein, Quantitative 13.1 mg/dL (0.00-0.90) H Pro-B-Type Natriuretic Peptide 8151 pg/mL (0-125) H Total Protein 5.1 G/DL (6.4-8.2) L Albumin 1.9 G/DL (3.4-5.0) L Globulin 3.2 g/dL Albumin/Globulin Ratio 0.6 (1.0-2.7) L Random Vancomycin Level 6.4 ug/mL Microbiology Date/Time Source Procedure Growth Status 09/05/18 16:28 Nasal Nares MRSA Culture - Final NO METHICILLIN RESISTANT STAPH AUREUS... Complete 09/05/18 14:00 Urine,Clean Catch Urine Culture - Final Escherichia Coli Complete 09/05/18 16:28 Rectum VRE Culture - Final NO VANCOMYCIN RESISTANT ENTEROCOCCUS ... Complete 09/05/18 16:28 Rectum - Final NO CARBAPENEM-RESISTANT ENTEROBACTERI... Complete Objective HEAD AND NECK: No JVD. LUNGS: Coarse rhonchi. CARDIOVASCULAR: Regular S1 and S2 with no gallop or murmur. ABDOMEN: Soft. EXTREMITIES: No pitting edema. Kevin Ruiz MD Sep 08, 2018 13:59
[2018-09-08] MEDS: cefTRIAXone 1 GM in NS 55 ML IVPB SCH (15:29)
--- NOTE | 2018-09-08 15:36 | NUR ---
NURSE NOTES:WOUND CARE NOTES:Non-blanchable erythema without induration or tenderness noted to sacrum (L)4cm x (W)5cm.L heel red and sluggish in blanching, but non-tender when palpated. R heel blanchable and non-tender. Tx.plan:Apply Moisture barrier paste to sacrum. Cover with Optifoam drsg .Change every 3 days and prn. Apply Cavilon Skin Barrier to both heels Daily .Off-load heels with pillow. Reposition at least every 2hours or as tolerated.
--- NOTE | 2018-09-08 16:57 | NUR ---
CASE MANAGEMENT: REVIEW SI: AMS . NSTEMI . RHABDOMYOLYSIS T 98.9 HR 94 RR 22 BP 142/57 SAT 99% NC/2L H/H 8.6/27.6 TROPONIN I 1.542 BNP 8151 IS: EPOETIN SQ MWF ECOTRIN PO QD HEPARIN SQ Q12HR CEFTRIAXONE IV Q24HR TELEMETRY STATUS DCP: PATIENT IS FROM HOME
--- NOTE | 2018-09-08 17:35 | Infectious Diseases Prog Note ---
Assessment/Plan Assessment/Plan ASSESSMENT AND PLAN: 1. e.coli uti/pyelonephritis, sepsis, fevers, leukocytosis, OA, doubt right knee septic arthritis per ortho - rocephin iv - day # 3, discontinue vancomycin - monitor labs and temperatures 2. Anemia. 3. Acute kidney injury. 4. Mild hyperkalemia. 5. Diabetes. 6. Hypertension. 7. Blood sugar and blood pressure treatment for diabetes and hypertension per primary. 8. Hyperlipidemia, dyslipidemia, hypercholesteremia. 9. Osteoarthritis. 10. Past medical history as noted. 11. No known drug allergies. 12. Social history is negative. 13. Family history is noncontributory. 14. MAR was noted. 15. Case was discussed with RN. 16. The patient is in ICU for elevated troponin, possible non-STEMI. 17. Continue treatment per primary consultants. 18. Notes and records were noted. Orders were entered. Subjective Constitutional: Reports: fever - less fevers, fever curve better HEENT: Denies: congestion Respiratory: Denies: shortness of breath Cardiovascular: Denies: chest pain Gastrointestinal/Abdominal: Denies: nausea, vomiting Genitourinary: Reports: other Neurologic: Denies: headache Psychiatric: Denies: depression Skin: Denies: rash Hematologic: Denies: bleeding Musculoskeletal: Denies: pain Allergies: Coded Allergies: No Known Allergies (Verified , 10/20/11) Objective Vital Signs Last 24 Hour Vital Signs Date Time Temp Pulse Resp B/P (MAP) Pulse Ox O2 Delivery O2 Flow Rate FiO2 09/08/18 16:00 Nasal Cannula 2.0 09/08/18 16:00 98.9 94 22 142/57 99 Nasal Cannula 2.0 09/08/18 14:06 84 18 99 Nasal Cannula 2.0 28 09/08/18 14:06 87 22 98 Nasal Cannula 3.0 32 09/08/18 12:00 83 09/08/18 12:00 98.6 86 17 119/59 100 Nasal Cannula 2.0 09/08/18 12:00 Nasal Cannula 2.0 09/08/18 11:00 84 17 119/69 100 Nasal Cannula 2.0 09/08/18 10:00 86 23 105/55 97 Nasal Cannula 2.0 09/08/18 09:03 91 121/48 09/08/18 08:00 91 09/08/18 08:00 98.3 90 24 109/41 96 Nasal Cannula 2.0 09/08/18 08:00 Nasal Cannula 2.0 09/08/18 07:21 81 20 100 Nasal Cannula 2.0 28 09/08/18 07:20 Nasal Cannula 2.0 28 09/08/18 07:20 100 Nasal Cannula 2.0 28 09/08/18 07:14 77 20 100 Nasal Cannula 3.0 32 09/08/18 07:00 79 23 102/75 96 Nasal Cannula 2.0 09/08/18 06:12 98.8 09/08/18 06:00 77 23 100/41 96 Nasal Cannula 2.0 09/08/18 05:00 77 23 106/46 96 Nasal Cannula 2.0 09/08/18 04:00 Nasal Cannula 2.0 09/08/18 04:00 80 09/08/18 04:00 98.8 96 23 107/60 96 Nasal Cannula 2.0 09/08/18 03:00 96 23 107/54 96 Nasal Cannula 2.0 09/08/18 02:48 100.0 09/08/18 02:00 100.6 96 23 111/45 96 Nasal Cannula 2.0 09/08/18 01:25 92 22 100 Nasal Cannula 2.0 28 09/08/18 01:15 90 22 97 Nasal Cannula 3.0 32 09/08/18 01:00 96 23 111/45 96 Nasal Cannula 2.0 09/08/18 00:00 86 09/08/18 00:00 Nasal Cannula 2.0 09/08/18 00:00 99.0 88 23 110/45 96 Nasal Cannula 2.0 09/07/18 23:00 88 23 111/45 100 Nasal Cannula 2.0 09/07/18 22:00 91 23 112/65 100 Nasal Cannula 2.0 09/07/18 21:00 102 23 97/44 100 Nasal Cannula 2.0 09/07/18 20:10 111 133/47 09/07/18 20:00 103 09/07/18 20:00 98.6 111 21 133/47 100 Nasal Cannula 2.0 09/07/18 20:00 Nasal Cannula 2.0 09/07/18 19:33 Nasal Cannula 2.0 28 09/07/18 19:33 97 Nasal Cannula 2.0 28 09/07/18 19:26 105 22 98 Nasal Cannula 2.0 28 09/07/18 19:16 100 22 98 Nasal Cannula 3.0 32 09/07/18 19:00 114 23 142/83 100 Nasal Cannula 2.0 09/07/18 18:00 111 26 137/75 100 Nasal Cannula 2.0 Height (Feet): 5 Height (Inches): 1.00 Weight (Pounds): 165 General Appearance: no acute distress HEENT: normocephalic, atraumatic, anicteric, mucous membranes moist Respiratory/Chest: lungs clear, normal breath sounds, no respiratory distress, no accessory muscle use Cardiovascular: normal rate, regular rhythm, no gallop/murmur, no JVD Abdomen: normal bowel sounds, soft, non tender, no organomegaly, non distended Genitourinary: other - + leo - urine clearer Extremities: no cyanosis, other - right knee pain less Skin: no rash 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 Complete 09/05/18 14:00 Urine,Clean Catch Urine Culture - Final Escherichia Coli Complete 09/05/18 16:28 Rectum VRE Culture - Final NO VANCOMYCIN RESISTANT ENTEROCOCCUS ... Complete 09/05/18 16:28 Rectum - Final NO CARBAPENEM-RESISTANT ENTEROBACTERI... Complete Laboratory Tests Test 09/07/18 19:03 09/08/18 05:10 Hepatitis A IgM Antibody Negative (Negative) Hepatitis B Surface Antigen Negative (Negative) Hepatitis B Core IgM Antibody Negative (Negative) Hepatitis C Antibody <0.1 s/co ratio White Blood Count 6.8 K/UL (4.8-10.8) Red Blood Count 2.49 M/UL (4.20-5.40) L Hemoglobin 8.6 G/DL (12.0-16.0) L Hematocrit 27.6 % (37.0-47.0) L Mean Corpuscular Volume 111 FL (80-99) H Mean Corpuscular Hemoglobin 34.7 PG (27.0-31.0) H Mean Corpuscular Hemoglobin Concent 31.3 G/DL (32.0-36.0) L Red Cell Distribution Width 13.9 % (11.6-14.8) Platelet Count 123 K/UL (150-450) L Mean Platelet Volume 7.4 FL (6.5-10.1) Neutrophils (%) (Auto) % (45.0-75.0) Lymphocytes (%) (Auto) % (20.0-45.0) Monocytes (%) (Auto) % (1.0-10.0) Eosinophils (%) (Auto) % (0.0-3.0) Basophils (%) (Auto) % (0.0-2.0) Differential Total Cells Counted 100 Neutrophils % (Manual) 72 % (45-75) Lymphocytes % (Manual) 11 % (20-45) L Monocytes % (Manual) 5 % (1-10) Eosinophils % (Manual) 2 % (0-3) Basophils % (Manual) 0 % (0-2) Band Neutrophils 10 % (0-8) H Platelet Estimate Decreased L Platelet Morphology Normal Hypochromasia 1+ Macrocytosis 2+ Sodium Level 141 MMOL/L (136-145) Potassium Level 3.4 MMOL/L (3.5-5.1) L Chloride Level 112 MMOL/L (98-107) H Carbon Dioxide Level 20 MMOL/L (21-32) L Anion Gap 9 mmol/L (5-15) Blood Urea Nitrogen 64 mg/dL (7-18) H Creatinine 2.4 MG/DL (0.55-1.30) H Estimat Glomerular Filtration Rate mL/min (>60) Glucose Level 179 MG/DL (74-106) H Uric Acid 6.6 MG/DL (2.6-7.2) Calcium Level 7.7 MG/DL (8.5-10.1) L Phosphorus Level 3.8 MG/DL (2.5-4.9) Magnesium Level 2.2 MG/DL (1.8-2.4) Total Bilirubin 0.3 MG/DL (0.2-1.0) Gamma Glutamyl Transpeptidase 6 U/L (5-85) Aspartate Amino Transf (AST/SGOT) 77 U/L (15-37) H Alanine Aminotransferase (ALT/SGPT) 61 U/L (12-78) Alkaline Phosphatase 54 U/L (46-116) Total Creatine Kinase 1178 U/L (26-308) H Troponin I 1.542 ng/mL (0.000-0.056) C-Reactive Protein, Quantitative 13.1 mg/dL (0.00-0.90) H Pro-B-Type Natriuretic Peptide 8151 pg/mL (0-125) H Total Protein 5.1 G/DL (6.4-8.2) L Albumin 1.9 G/DL (3.4-5.0) L Globulin 3.2 g/dL Albumin/Globulin Ratio 0.6 (1.0-2.7) L Random Vancomycin Level 6.4 ug/mL Current Medications Medications (Trade) Dose Ordered Sig/Nikita Route PRN Reason Start Time Stop Time Status Last Admin Dose Admin Acetaminophen (Tylenol) 650 mg Q6H PRN ORAL Mild Pain/Temp > 100.5 09/08/18 12:45 10/05/18 12:44 Acetaminophen/ Hydrocodone Bitart ([place] 5/325) 1 tab Q6H PRN ORAL Moderate Pain (Pain Scale 4-6) 09/08/18 12:45 09/13/18 12:44 09/08/18 16:46 Albuterol/ Ipratropium (Albuterol/ Ipratropium) 3 ml Q6HRT HHN 09/08/18 13:00 09/12/18 08:59 09/08/18 14:05 Allopurinol (Allopurinol) 300 mg DAILY ORAL 09/09/18 09:00 10/07/18 08:59 Aspirin (Ecotrin) 81 mg DAILY ORAL 09/09/18 09:00 10/06/18 08:59 Atorvastatin Calcium (Lipitor) 10 mg QHS ORAL 09/08/18 21:00 10/05/18 19:59 Ceftriaxone Sodium 1 gm/ Sodium Chloride 55 ml @ 110 mls/hr Q24HRS IVPB 09/08/18 15:00 09/13/18 14:59 09/08/18 15:29 Dextrose (Dextrose 50%) 25 ml Q30M PRN IV Hypoglycemia 09/08/18 12:45 10/05/18 17:44 Dextrose (Dextrose 50%) 50 ml Q30M PRN IV Hypoglycemia 09/08/18 12:30 10/05/18 18:59 Epoetin James (Epoetin James-EPBX(NON ESRD)) 10,000 unit MON-WED-MON SUBQ 09/10/18 21:00 10/07/18 20:59 Heparin Sodium (Porcine) (Heparin 5000 units/ml) 5,000 units EVERY 12 HOURS SUBQ 09/08/18 21:00 10/06/18 20:59 Insulin Aspart (NovoLOG) BEFORE MEALS AND HS SUBQ 09/08/18 16:30 10/05/18 20:59 09/08/18 16:37 Lidocaine (Lidoderm 5% PATCH) 2 patch DAILY TDERMAL 09/09/18 09:00 10/06/18 13:59 Metoprolol Tartrate (Lopressor) 25 mg Q12HR ORAL 09/08/18 21:00 10/05/18 20:59 Pantoprazole (Protonix) 40 mg EVERY 12 HOURS ORAL 09/08/18 21:00 10/07/18 20:59 Pregabalin (Lyrica) 50 mg BEDTIME ORAL 09/08/18 21:00 10/05/18 20:59 Vancomycin HCl (Vanco rx to dose) 1 ea DAILY PRN MISC Per rx protocol 09/08/18 12:45 10/08/18 12:44 Yuliet Tubbs MD Sep 08, 2018 17:35
--- NOTE | 2018-09-08 19:20 | NUR ---
NURSE NOTES: Received report from ROQUE Steven. Patient awake, alert and verbally responsive. No SOB, no acute distress on 2 L via NC, denies any pain nor any discomfort at this time. IV sites on R hand #22 and R wrist #22, both patent and intact. Bed at lowest position, call light within reach. Will continue plan of care.
[2018-09-08] MEDS ORDERED: Tubing IV Secondary IV ONE ×2 (20:07)
[2018-09-08] MEDS ORDERED: NS 275ml ONE (20:07)
[2018-09-08] MEDS ORDERED: Lyrica 50mg cap ORAL SCH (21:00)
--- NOTE | 2018-09-08 21:24 | Pulmonology Progress Note ---
Assessment/Plan Assessment/Plan Pulmonary Progress Note Assessment/Plan Problems: (1) Elevated d-dimer (2) Rhabdomyolysis (3) NSTEMI (non-ST elevated myocardial infarction) (4) UTI (lower urinary tract infection) (5) Sepsis Respiratory: monitor respiratory rate, adjust FIO2, other - HHNs pulm hygiene Cardiac: continue to monitor HR/BP, other - F/U cards recs, no plan for cath, + med managment Renal: keep IV fluid, check electrolytes - Cr CK Infectious Disease: check cultures, continue antibiotics - per ID Gastrointestinal: other - aspiration precuations Endocrine: monitor blood sugar Hematologic: monitor H/H, other - Elevated D-dimer and negative duplex, F/U VQ Neurologic: keep patient comfortable Affect: PRN ativan Prophylaxis: Protonix, Heparin, other - DNAR DNI Disposition: transfer to - tele 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, 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, 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, ID Discussed with: nurses, consultants Objective Vital Signs Noted Status: awake Condition: improving HEENT: atraumatic, normocephalic Neck: full ROM Lungs: clear Heart: HR/BP stable Abdomen: soft, non-tender, active bowel sounds Extremities: no C/C/E Micro: Microbiology Date/Time Source Procedure Growth Status 09/05/18 14:00 Urine,Clean Catch Urine Culture - Final Escherichia Coli Complete 09/05/18 16:28 Rectum VRE Culture Pending Resulted 09/05/18 16:28 Rectum - Preliminary Resulted Blood Sugars: BS controlled Interval Events: AFVSS O2 needs stable Trops, CR and CK downtrending Mynor PO E coli in urine Duplex negative Seen by ortho - knee felt to not be infected + DDD Condition: improving IV Access: peripheral Subjective: No F/C/CP/SOB/N/V/D/C/abd pain or urinary complaints + knee pain R Labs: Laboratory Tests Test 09/07/18 04:35 White Blood Count 8.7 K/UL (4.8-10.8) Red Blood Count 2.62 M/UL (4.20-5.40) L Hemoglobin 9.0 G/DL (12.0-16.0) L Hematocrit 28.4 % (37.0-47.0) L Mean Corpuscular Volume 109 FL (80-99) H Mean Corpuscular Hemoglobin 34.4 PG (27.0-31.0) H Mean Corpuscular Hemoglobin Concent 31.7 G/DL (32.0-36.0) L Red Cell Distribution Width 13.6 % (11.6-14.8) Platelet Count 134 K/UL (150-450) L Mean Platelet Volume 7.4 FL (6.5-10.1) Neutrophils (%) (Auto) 84.3 % (45.0-75.0) H Lymphocytes (%) (Auto) 7.4 % (20.0-45.0) L Monocytes (%) (Auto) 7.4 % (1.0-10.0) Eosinophils (%) (Auto) 0.5 % (0.0-3.0) Basophils (%) (Auto) 0.4 % (0.0-2.0) Sodium Level 141 MMOL/L (136-145) Potassium Level 3.7 MMOL/L (3.5-5.1) Chloride Level 111 MMOL/L (98-107) H Carbon Dioxide Level 19 MMOL/L (21-32) L Anion Gap 11 mmol/L (5-15) Blood Urea Nitrogen 70 mg/dL (7-18) H Creatinine 2.4 MG/DL (0.55-1.30) H Estimat Glomerular Filtration Rate mL/min (>60) Glucose Level 144 MG/DL (74-106) H Uric Acid 8.0 MG/DL (2.6-7.2) H Calcium Level 7.5 MG/DL (8.5-10.1) L Phosphorus Level 4.7 MG/DL (2.5-4.9) Magnesium Level 2.5 MG/DL (1.8-2.4) H Total Bilirubin 0.1 MG/DL (0.2-1.0) L Gamma Glutamyl Transpeptidase 7 U/L (5-85) Aspartate Amino Transf (AST/SGOT) 118 U/L (15-37) H Alanine Aminotransferase (ALT/SGPT) 70 U/L (12-78) Alkaline Phosphatase 53 U/L (46-116) Total Creatine Kinase 2041 U/L (26-308) H Troponin I 3.591 ng/mL (0.000-0.056) Total Protein 5.4 G/DL (6.4-8.2) L Albumin 2.1 G/DL (3.4-5.0) L Globulin 3.3 g/dL Albumin/Globulin Ratio 0.6 (1.0-2.7) L Subjective ROS Limited/Unobtainable: No Allergies: Coded Allergies: No Known Allergies (Verified , 10/20/11) Objective Last 24 Hour Vital Signs Date Time Temp Pulse Resp B/P (MAP) Pulse Ox O2 Delivery O2 Flow Rate FiO2 09/08/18 20:33 91 148/61 09/08/18 20:00 98.7 91 20 148/61 97 Nasal Cannula 2.0 09/08/18 16:00 Nasal Cannula 2.0 09/08/18 16:00 98.9 94 22 142/57 99 Nasal Cannula 2.0 09/08/18 14:06 84 18 99 Nasal Cannula 2.0 28 09/08/18 14:06 87 22 98 Nasal Cannula 3.0 32 09/08/18 12:00 83 09/08/18 12:00 98.6 86 17 119/59 100 Nasal Cannula 2.0 09/08/18 12:00 Nasal Cannula 2.0 09/08/18 11:00 84 17 119/69 100 Nasal Cannula 2.0 09/08/18 10:00 86 23 105/55 97 Nasal Cannula 2.0 09/08/18 09:03 91 121/48 09/08/18 08:00 91 09/08/18 08:00 98.3 90 24 109/41 96 Nasal Cannula 2.0 09/08/18 08:00 Nasal Cannula 2.0 09/08/18 07:21 81 20 100 Nasal Cannula 2.0 28 09/08/18 07:20 Nasal Cannula 2.0 28 09/08/18 07:20 100 Nasal Cannula 2.0 28 09/08/18 07:14 77 20 100 Nasal Cannula 3.0 32 09/08/18 07:00 79 23 102/75 96 Nasal Cannula 2.0 09/08/18 06:12 98.8 09/08/18 06:00 77 23 100/41 96 Nasal Cannula 2.0 09/08/18 05:00 77 23 106/46 96 Nasal Cannula 2.0 09/08/18 04:00 Nasal Cannula 2.0 09/08/18 04:00 80 09/08/18 04:00 98.8 96 23 107/60 96 Nasal Cannula 2.0 09/08/18 03:00 96 23 107/54 96 Nasal Cannula 2.0 09/08/18 02:48 100.0 09/08/18 02:00 100.6 96 23 111/45 96 Nasal Cannula 2.0 09/08/18 01:25 92 22 100 Nasal Cannula 2.0 28 09/08/18 01:15 90 22 97 Nasal Cannula 3.0 32 09/08/18 01:00 96 23 111/45 96 Nasal Cannula 2.0 09/08/18 00:00 86 09/08/18 00:00 Nasal Cannula 2.0 09/08/18 00:00 99.0 88 23 110/45 96 Nasal Cannula 2.0 09/07/18 23:00 88 23 111/45 100 Nasal Cannula 2.0 09/07/18 22:00 91 23 112/65 100 Nasal Cannula 2.0 Intake and Output 09/07/18 09/08/18 19:00 07:00 Intake Total 1590 ml 1680 ml Output Total 490 ml 715 ml Balance 1100 ml 965 ml Intake Oral 480 ml 180 ml IV Total 1110 ml 1500 ml Output Urine Total 490 ml 715 ml # Voids 60 Laboratory Tests 09/08/18 05:10: White Blood Count 6.8, Red Blood Count 2.49L, Hemoglobin 8.6L, Hematocrit 27.6L , Mean Corpuscular Volume 111H, Mean Corpuscular Hemoglobin 34.7H, Mean Corpuscular Hemoglobin Concent 31.3L, Red Cell Distribution Width 13.9, Platelet Count 123L, Mean Platelet Volume 7.4, Neutrophils (%) (Auto) , Lymphocytes (%) (Auto) , Monocytes (%) (Auto) , Eosinophils (%) (Auto) , Basophils (%) (Auto) , Differential Total Cells Counted 100, Neutrophils % ( Manual) 72, Lymphocytes % (Manual) 11L, Monocytes % (Manual) 5, Eosinophils % ( Manual) 2, Basophils % (Manual) 0, Band Neutrophils 10H, Platelet Estimate DecreasedL, Platelet Morphology Normal, Hypochromasia 1+, Macrocytosis 2+, Sodium Level 141, Potassium Level 3.4L, Chloride Level 112H, Carbon Dioxide Level 20L, Anion Gap 9, Blood Urea Nitrogen 64H, Creatinine 2.4H, Estimat Glomerular Filtration Rate , Glucose Level 179H, Uric Acid 6.6, Calcium Level 7.7L, Phosphorus Level 3.8, Magnesium Level 2.2, Total Bilirubin 0.3, Gamma Glutamyl Transpeptidase 6, Aspartate Amino Transf (AST/SGOT) 77H, Alanine Aminotransferase (ALT/SGPT) 61, Alkaline Phosphatase 54, Total Creatine Kinase 1178H, Troponin I 1.542H, C-Reactive Protein, Quantitative 13.1H, Pro-B-Type Natriuretic Peptide 8151H, Total Protein 5.1L, Albumin 1.9L, Globulin 3.2, Albumin/Globulin Ratio 0.6L, Random Vancomycin Level 6.4 Current Medications Medications (Trade) Dose Ordered Sig/Nikita Route PRN Reason Start Time Stop Time Status Last Admin Dose Admin Acetaminophen (Tylenol) 650 mg Q6H PRN ORAL Mild Pain/Temp > 100.5 09/08/18 12:45 10/05/18 12:44 Acetaminophen/ Hydrocodone Bitart ([place] 5/325) 1 tab Q6H PRN ORAL Moderate Pain (Pain Scale 4-6) 09/08/18 12:45 09/13/18 12:44 09/08/18 16:46 Albuterol/ Ipratropium (Albuterol/ Ipratropium) 3 ml Q6HRT HHN 09/08/18 13:00 09/12/18 08:59 09/08/18 14:05 Allopurinol (Allopurinol) 300 mg DAILY ORAL 09/09/18 09:00 10/07/18 08:59 Aspirin (Ecotrin) 81 mg DAILY ORAL 09/09/18 09:00 10/06/18 08:59 Atorvastatin Calcium (Lipitor) 10 mg QHS ORAL 09/08/18 21:00 10/05/18 19:59 09/08/18 20:33 Ceftriaxone Sodium 1 gm/ Sodium Chloride 55 ml @ 110 mls/hr Q24HRS IVPB 09/08/18 15:00 09/13/18 14:59 09/08/18 15:29 Dextrose (Dextrose 50%) 25 ml Q30M PRN IV Hypoglycemia 09/08/18 12:45 10/05/18 17:44 Dextrose (Dextrose 50%) 50 ml Q30M PRN IV Hypoglycemia 09/08/18 12:30 10/05/18 18:59 Epoetin James (Epoetin James-EPBX(NON ESRD)) 10,000 unit MON-MON-MON SUBQ 09/10/18 21:00 10/07/18 20:59 Heparin Sodium (Porcine) (Heparin 5000 units/ml) 5,000 units EVERY 12 HOURS SUBQ 09/08/18 21:00 10/06/18 20:59 09/08/18 20:34 Insulin Aspart (NovoLOG) BEFORE MEALS AND HS SUBQ 09/08/18 16:30 10/05/18 20:59 09/08/18 20:36 Lidocaine (Lidoderm 5% PATCH) 2 patch DAILY TDERMAL 09/09/18 09:00 10/06/18 13:59 Metoprolol Tartrate (Lopressor) 25 mg Q12HR ORAL 09/08/18 21:00 10/05/18 20:59 09/08/18 20:33 Pantoprazole (Protonix) 40 mg EVERY 12 HOURS ORAL 09/08/18 21:00 10/07/18 20:59 09/08/18 20:33 Pregabalin (Lyrica) 50 mg BEDTIME ORAL 09/08/18 21:00 10/05/18 20:59 09/08/18 20:33 Kevin Horn MD Sep 08, 2018 21:24
[2018-09-09] VITALS: BP 132/64
[2018-09-09] MEDS: Albuterol/Ipratropium 3ml neb HHN SCH ×4 (01:35→22:13)
--- NOTE | 2018-09-09 03:00 | NUR ---
NURSE NOTES: Patient asleep, breathing even and unlabored, no s/sx of pain nor any discomfort at this time. F/C intact and patent with yellow-colored output. Turned and repositioned at least Q 2 hours and as tolerated. Will continue to monitor.
[2018-09-09 04:00] VITALS: BP 123/79
[2018-09-09] MEDS: Norco 5mg/325mg tab ORAL PRN ×3 (04:18→22:39)
[2018-09-09] MEDS: NovoLOG Insulin Flexpen SUBQ SCH ×4 (06:15→21:07)
--- NOTE | 2018-09-09 07:19 | NUR ---
HAND-OFF: Report given to ROQUE Monteiro. Endorsed plan of care.
--- NOTE | 2018-09-09 07:28 | NUR ---
NURSE NOTES: Received report from ROQUE King. Patient in bed resting, no active s/s cardiac, respiratory distress noticed at this time. AO x3, denies pain at this time, Michelle catheter draining well to gravity, patient on oxygen 2L via NC. IV asymptomatic, patent, intact. Endorsed patient to be transfer to med-surgi unit. Bed in lowest position, side rails up x3, call light within reach. Will continue to monitor.
[2018-09-09 08:00] VITALS: BP 146/65
[2018-09-09] MEDS: Metoprolol 25mg tab ORAL SCH ×2 (08:23→20:59)
[2018-09-09] MEDS: Heparin 5000 units/ml inj SUBQ SCH ×2 (09:00→21:00)
[2018-09-09] MEDS ORDERED: Aspirin EC 81mg tab ORAL SCH (09:00)
[2018-09-09 09:32] LABS: HEMATOCRIT 31.2 % (37.0-47.0); HEMOGLOBIN 9.8 G/DL (12.0-16.0); MEAN CORPUSCULAR VOLUME 114 FL (80-99); RED BLOOD COUNT 2.74 M/UL (4.20-5.40); RED CELL DISTRIBUTION WIDTH 14.2 % (11.6-14.8)
[2018-09-09 09:35] LABS: ANION GAP 12 mmol/L (5-15); BLOOD UREA NITROGEN 51 mg/dL (7-18); CALCIUM 8.5 MG/DL (8.5-10.1); CARBON DIOXIDE 19 MMOL/L (21-32); CHLORIDE 111 MMOL/L (98-107); POTASSIUM 4.2 MMOL/L (3.5-5.1); SODIUM 142 MMOL/L (136-145)
[2018-09-09 10:42] LABS: PLATELET COUNT 120 K/UL (150-450)
--- NOTE | 2018-09-09 11:30 | NUR ---
NURSE NOTES: Clarified with Dr. Traore to transfer patient to med-surgi unit. Per Dr. León quezada to transfer.
[2018-09-09 12:00] VITALS: BP 147/70
--- NOTE | 2018-09-09 12:00 | NUR ---
TRANSFER TO FLOOR: Patient transferred to , per Dr. Traore. Report given to ROQUE Pandey. Belongings and medications given to ROQUE Pandey. Family and or S/O informed of transfer.
--- NOTE | 2018-09-09 12:45 | Nephrology Progress Note ---
Assessment/Plan Problem List: (1) Renal failure (ARF), acute on chronic Assessment: Cr lower (2) Diabetic nephropathy (3) Rhabdomyolysis Assessment: CPK lower (4) NSTEMI (non-ST elevated myocardial infarction) Assessment Acute Renal Failure- possibly superimposed on chronic Fall, Rhabdo High K Myocardial injury ( elevated Troponin) UTI DM with Proteinuria: Likely Diabetic Nephropathy HTN right knee swelling ? Arthritis Plan hydrate urine studies gastric protection cardiology eval 2D echo noted monitor CPK antibiotics per orders Subjective ROS Limited/Unobtainable: No Constitutional: Reports: malaise, weakness Objective Objective Last 24 Hour Vital Signs Date Time Temp Pulse Resp B/P (MAP) Pulse Ox O2 Delivery O2 Flow Rate FiO2 09/09/18 09:00 Nasal Cannula 2.0 09/09/18 08:23 89 146/65 09/09/18 08:00 98.0 89 19 146/65 100 Nasal Cannula 2.0 09/09/18 07:57 89 20 98 Nasal Cannula 2.0 28 09/09/18 07:44 81 20 97 Nasal Cannula 3.0 32 09/09/18 07:43 Nasal Cannula 2.0 28 09/09/18 07:42 96 Nasal Cannula 2.0 28 09/09/18 04:00 97.4 99 20 123/79 98 Nasal Cannula 2.0 09/09/18 01:45 87 18 98 Nasal Cannula 2.0 28 09/09/18 01:35 87 18 98 Nasal Cannula 3.0 32 09/09/18 00:00 98.1 78 20 132/64 100 Nasal Cannula 2.0 09/08/18 21:00 Nasal Cannula 2.0 09/08/18 20:48 Nasal Cannula 2.0 28 09/08/18 20:48 100 Nasal Cannula 2.0 28 09/08/18 20:33 91 148/61 09/08/18 20:00 98.7 91 20 148/61 97 Nasal Cannula 2.0 09/08/18 19:00 Nasal Cannula 2.0 28 09/08/18 19:00 Nasal Cannula 2.0 28 09/08/18 16:00 Nasal Cannula 2.0 09/08/18 16:00 98.9 94 22 142/57 99 Nasal Cannula 2.0 09/08/18 14:06 84 18 99 Nasal Cannula 2.0 28 09/08/18 14:06 87 22 98 Nasal Cannula 3.0 32 Intake and Output 09/08/18 09/09/18 19:00 07:00 Intake Total 1335.000 ml 360 ml Output Total 1205 ml 800 ml Balance 130.000 ml -440 ml Intake Oral 560 ml 360 ml IV Total 775.000 ml Output Urine Total 1205 ml 800 ml Laboratory Tests 09/09/18 09:05: White Blood Count 7.0, Red Blood Count 2.74L, Hemoglobin 9.8L, Hematocrit 31.2L , Mean Corpuscular Volume 114H, Mean Corpuscular Hemoglobin 35.7H, Mean Corpuscular Hemoglobin Concent 31.4L, Red Cell Distribution Width 14.2, Platelet Count 120L, Mean Platelet Volume 8.4, Neutrophils (%) (Auto) , Lymphocytes (%) (Auto) , Monocytes (%) (Auto) , Eosinophils (%) (Auto) , Basophils (%) (Auto) , Differential Total Cells Counted 100, Neutrophils % ( Manual) 81H, Lymphocytes % (Manual) 10L, Monocytes % (Manual) 4, Eosinophils % ( Manual) 3, Basophils % (Manual) 0, Band Neutrophils 2, Platelet Estimate DecreasedL, Platelet Morphology Normal, Macrocytosis 2+, Sodium Level 142, Potassium Level 4.2, Chloride Level 111H, Carbon Dioxide Level 19L, Anion Gap 12 , Blood Urea Nitrogen 51H, Creatinine 2.0H, Estimat Glomerular Filtration Rate , Glucose Level 144H, Calcium Level 8.5, C-Reactive Protein, Quantitative 25.9H Height (Feet): 5 Height (Inches): 1.00 Weight (Pounds): 173 General Appearance: no apparent distress Cardiovascular: normal rate Respiratory/Chest: decreased breath sounds Abdomen: soft Objective no change Erick Patterson MD Sep 09, 2018 12:45
--- NOTE | 2018-09-09 13:00 | NUR ---
NURSE NOTES: patient transferred from tele in stable condition. Received report from ROQUE Monteiro from tele. Patient in bed resting, alert and oriented x3, no acute distress noted at this time. denies pain at this time. Michelle catheter draining well to gravity, patient on oxygen 2L via NC. IV asymptomatic, intact and Bed in lowest position and locked. Alarm is on. checked belonging at bed side. Call light and needs within reach. Will continue to monitor.
[2018-09-09] MEDS: cefTRIAXone 1 GM in NS 55 ML IVPB SCH (14:32)
--- NOTE | 2018-09-09 15:10 | NUR ---
NURSE NOTES: Given Michie 5/325 1tab given for c/o knee pain 05/09, and reassessed Pain with 09/09, patient comfortable in bed, resting No acute distress noted, Call light within reach, Will continue to monitor.
--- NOTE | 2018-09-09 15:25 | General Progress Note ---
Assessment/Plan Assessment/Plan #Fall #Rhabdomyolysis, resolving #HAIR, improved renal function #Hyperkalemia, improved #Metabolic acidosis, improving -repeat labs in AM -monitor CK levels -avoid nephrotoxic meds -monitor daily BMP #NSTEMI -Cardiology following -Anticoagulation stoped per Cardiology recs -continue ASA,Statin, B-millie -TTE -Cardiac monitoring #Right knee swelling and pain #Elevated CRP -Ortho eval appreciated -no indication for arthrocentesis at this time #Severe sepsis, present on admission #E. coli UTI -continue ceftriaxone #Type 2 DM -hold Actos -lispro SS #HTN, borderline blood pressures -hold Diovan and Lasix with HAIR -monitor BP VTE PPx heparin DNR Subjective Date patient seen: Sep 09, 2018 Time patient seen: 12:25 Constitutional: Denies: fever Cardiovascular: Denies: chest pain, palpitations Respiratory: Denies: cough, shortness of breath Gastrointestinal/Abdominal: Denies: abdominal pain Allergies: Coded Allergies: No Known Allergies (Verified , 10/20/11) Subjective Medicine followup for multiple medical problems including rhbadomyolysis, NSTEMI , severe sepsis due to UTI, HAIR, metabolic acidosis. Labs improving daily. No acute issues. Objective Last 24 Hour Vital Signs Date Time Temp Pulse Resp B/P (MAP) Pulse Ox O2 Delivery O2 Flow Rate FiO2 09/09/18 13:20 84 20 98 Nasal Cannula 2.0 28 09/09/18 13:10 84 18 96 Nasal Cannula 3.0 32 09/09/18 12:00 98.2 90 20 147/70 98 Nasal Cannula 2.0 09/09/18 09:00 Nasal Cannula 2.0 09/09/18 08:23 89 146/65 09/09/18 08:00 98.0 89 19 146/65 100 Nasal Cannula 2.0 09/09/18 07:57 89 20 98 Nasal Cannula 2.0 28 09/09/18 07:44 81 20 97 Nasal Cannula 3.0 32 09/09/18 07:43 Nasal Cannula 2.0 28 09/09/18 07:42 96 Nasal Cannula 2.0 28 09/09/18 04:00 97.4 99 20 123/79 98 Nasal Cannula 2.0 09/09/18 01:45 87 18 98 Nasal Cannula 2.0 28 09/09/18 01:35 87 18 98 Nasal Cannula 3.0 32 09/09/18 00:00 98.1 78 20 132/64 100 Nasal Cannula 2.0 09/08/18 21:00 Nasal Cannula 2.0 09/08/18 20:48 Nasal Cannula 2.0 28 09/08/18 20:48 100 Nasal Cannula 2.0 28 09/08/18 20:33 91 148/61 09/08/18 20:00 98.7 91 20 148/61 97 Nasal Cannula 2.0 09/08/18 19:00 Nasal Cannula 2.0 28 09/08/18 19:00 Nasal Cannula 2.0 28 09/08/18 16:00 Nasal Cannula 2.0 09/08/18 16:00 98.9 94 22 142/57 99 Nasal Cannula 2.0 Intake and Output 09/08/18 09/09/18 19:00 07:00 Intake Total 1335.000 ml 360 ml Output Total 1205 ml 800 ml Balance 130.000 ml -440 ml Intake Oral 560 ml 360 ml IV Total 775.000 ml Output Urine Total 1205 ml 800 ml Laboratory Tests 09/09/18 09:05: White Blood Count 7.0, Red Blood Count 2.74L, Hemoglobin 9.8L, Hematocrit 31.2L , Mean Corpuscular Volume 114H, Mean Corpuscular Hemoglobin 35.7H, Mean Corpuscular Hemoglobin Concent 31.4L, Red Cell Distribution Width 14.2, Platelet Count 120L, Mean Platelet Volume 8.4, Neutrophils (%) (Auto) , Lymphocytes (%) (Auto) , Monocytes (%) (Auto) , Eosinophils (%) (Auto) , Basophils (%) (Auto) , Differential Total Cells Counted 100, Neutrophils % ( Manual) 81H, Lymphocytes % (Manual) 10L, Monocytes % (Manual) 4, Eosinophils % ( Manual) 3, Basophils % (Manual) 0, Band Neutrophils 2, Platelet Estimate DecreasedL, Platelet Morphology Normal, Macrocytosis 2+, Sodium Level 142, Potassium Level 4.2, Chloride Level 111H, Carbon Dioxide Level 19L, Anion Gap 12 , Blood Urea Nitrogen 51H, Creatinine 2.0H, Estimat Glomerular Filtration Rate , Glucose Level 144H, Calcium Level 8.5, C-Reactive Protein, Quantitative 25.9H Height (Feet): 5 Height (Inches): 1.00 Weight (Pounds): 173 General Appearance: no apparent distress, alert Cardiovascular: normal rate, regular rhythm Respiratory/Chest: lungs clear, normal breath sounds, no respiratory distress Abdomen: non tender, soft Genitourinary/Rectal: other - Bilateral knee pain/tenderness Neurologic: breastfeeding peer counselor II-XII grossly normal, no motor/sensory deficits Caden Kelsey MD Sep 09, 2018 15:25
[2018-09-09 16:00] VITALS: BP 138/52
--- NOTE | 2018-09-09 16:03 | Cardiac Electrophysiology PN ---
Assessment/Plan Assessment/Plan 1. Non-ST elevation myocardial infarction with troponin of 28, down to 1.5 . Never had any chest pain and could be due to rhabdomyolysis and renal failure DNR and DNI and family does not want cardiac catheterization. Continue aspirin, beta-millie, and statin. Echocardiogram EF 65% 2. Hypertension.On Lopressor 25 bid 3. Hyperlipidemia, off Lipitor due to high LFTs. 4. Rhabdomyolysis. CPK 7600 to 1100 on IV fluid. 5. Renal failure, creatinine 2.6 down to 2.0. DW RN Subjective Subjective No CP or SOB .Transferred to nonmonitored bed. Objective Last 24 Hour Vital Signs Date Time Temp Pulse Resp B/P (MAP) Pulse Ox O2 Delivery O2 Flow Rate FiO2 09/09/18 13:20 84 20 98 Nasal Cannula 2.0 28 09/09/18 13:10 84 18 96 Nasal Cannula 3.0 32 09/09/18 12:00 98.2 90 20 147/70 98 Nasal Cannula 2.0 09/09/18 09:00 Nasal Cannula 2.0 09/09/18 08:23 89 146/65 09/09/18 08:00 98.0 89 19 146/65 100 Nasal Cannula 2.0 09/09/18 07:57 89 20 98 Nasal Cannula 2.0 28 09/09/18 07:44 81 20 97 Nasal Cannula 3.0 32 09/09/18 07:43 Nasal Cannula 2.0 28 09/09/18 07:42 96 Nasal Cannula 2.0 28 09/09/18 04:00 97.4 99 20 123/79 98 Nasal Cannula 2.0 09/09/18 01:45 87 18 98 Nasal Cannula 2.0 28 09/09/18 01:35 87 18 98 Nasal Cannula 3.0 32 09/09/18 00:00 98.1 78 20 132/64 100 Nasal Cannula 2.0 09/08/18 21:00 Nasal Cannula 2.0 09/08/18 20:48 Nasal Cannula 2.0 28 09/08/18 20:48 100 Nasal Cannula 2.0 28 09/08/18 20:33 91 148/61 09/08/18 20:00 98.7 91 20 148/61 97 Nasal Cannula 2.0 09/08/18 19:00 Nasal Cannula 2.0 28 09/08/18 19:00 Nasal Cannula 2.0 28 09/08/18 16:00 Nasal Cannula 2.0 09/08/18 16:00 98.9 94 22 142/57 99 Nasal Cannula 2.0 Intake and Output 09/08/18 09/09/18 19:00 07:00 Intake Total 1335.000 ml 360 ml Output Total 1205 ml 800 ml Balance 130.000 ml -440 ml Intake Oral 560 ml 360 ml IV Total 775.000 ml Output Urine Total 1205 ml 800 ml Laboratory Tests Test 09/09/18 09:05 White Blood Count 7.0 K/UL (4.8-10.8) Red Blood Count 2.74 M/UL (4.20-5.40) L Hemoglobin 9.8 G/DL (12.0-16.0) L Hematocrit 31.2 % (37.0-47.0) L Mean Corpuscular Volume 114 FL (80-99) H Mean Corpuscular Hemoglobin 35.7 PG (27.0-31.0) H Mean Corpuscular Hemoglobin Concent 31.4 G/DL (32.0-36.0) L Red Cell Distribution Width 14.2 % (11.6-14.8) Platelet Count 120 K/UL (150-450) L Mean Platelet Volume 8.4 FL (6.5-10.1) Neutrophils (%) (Auto) % (45.0-75.0) Lymphocytes (%) (Auto) % (20.0-45.0) Monocytes (%) (Auto) % (1.0-10.0) Eosinophils (%) (Auto) % (0.0-3.0) Basophils (%) (Auto) % (0.0-2.0) Differential Total Cells Counted 100 Neutrophils % (Manual) 81 % (45-75) H Lymphocytes % (Manual) 10 % (20-45) L Monocytes % (Manual) 4 % (1-10) Eosinophils % (Manual) 3 % (0-3) Basophils % (Manual) 0 % (0-2) Band Neutrophils 2 % (0-8) Platelet Estimate Decreased L Platelet Morphology Normal Macrocytosis 2+ Sodium Level 142 MMOL/L (136-145) Potassium Level 4.2 MMOL/L (3.5-5.1) Chloride Level 111 MMOL/L (98-107) H Carbon Dioxide Level 19 MMOL/L (21-32) L Anion Gap 12 mmol/L (5-15) Blood Urea Nitrogen 51 mg/dL (7-18) H Creatinine 2.0 MG/DL (0.55-1.30) H Estimat Glomerular Filtration Rate mL/min (>60) Glucose Level 144 MG/DL (74-106) H Calcium Level 8.5 MG/DL (8.5-10.1) C-Reactive Protein, Quantitative 25.9 mg/dL (0.00-0.90) H Microbiology Date/Time Source Procedure Growth Status 09/06/18 18:58 Blood Blood Culture - Preliminary NO GROWTH AFTER 48 HOURS Resulted 09/06/18 18:50 Blood Blood Culture - Preliminary NO GROWTH AFTER 48 HOURS Resulted Objective HEAD AND NECK: No JVD. LUNGS: Coarse rhonchi. CARDIOVASCULAR: Regular S1 and S2 with no gallop or murmur. ABDOMEN: Soft. EXTREMITIES: No pitting edema. Kevin Ruiz MD Sep 09, 2018 16:03
--- NOTE | 2018-09-09 18:51 | NUR ---
NURSE NOTES: Rn collected urine for eosinophil urine and sent to lab.
--- NOTE | 2018-09-09 19:38 | NUR ---
HAND-OFF: Report given to [facility].
--- NOTE | 2018-09-09 19:38 | NUR ---
NURSE NOTES: Endorsed to [facility] to collect urine for eosinophil urine in am.
[2018-09-09 20:00] VITALS: BP 137/61
--- NOTE | 2018-09-09 20:00 | NUR ---
NURSE NOTES: Patient received. No distress noted. Repositioned and kept comfortable. IV site intact and patent. On 2L nasal cannula. Michelle patent and draining. Will continue to monitor.
[2018-09-09] MEDS: Lyrica 50mg cap ORAL SCH (21:00)
[2018-09-09] MEDS ORDERED: Albuterol/Ipratropium 3ml neb ONE (21:55)
[2018-09-10] VITALS: BP 128/57
[2018-09-10] MEDS: Albuterol/Ipratropium 3ml neb HHN SCH ×4 (01:29→21:57)
[2018-09-10] MEDS: NovoLOG Insulin Flexpen SUBQ SCH ×4 (06:27→21:22)
[2018-09-10 06:40] LABS: BASOPHILS % (AUTO) 0.5 % (0.0-2.0); EOSINOPHILS % (AUTO) 1.9 % (0.0-3.0); HEMATOCRIT 27.5 % (37.0-47.0); HEMOGLOBIN 8.8 G/DL (12.0-16.0); LYMPHOCYTES % (AUTO) 13.5 % (20.0-45.0); MEAN CORPUSCULAR VOLUME 110 FL (80-99); MONOCYTES % (AUTO) 6.8 % (1.0-10.0); NEUTROPHILS % (AUTO) 77.4 % (45.0-75.0); PLATELET COUNT 137 K/UL (150-450); RED CELL DISTRIBUTION WIDTH 13.7 % (11.6-14.8); WHITE BLOOD COUNT 7.3 K/UL (4.8-10.8)
--- NOTE | 2018-09-10 07:02 | NUR ---
HAND-OFF: Report given to ROQUE Gates.
[2018-09-10 07:12] LABS: ALANINE AMINOTRANSFERASE 51 U/L (12-78); ALBUMIN/GLOBULIN RATIO 0.5 (1.0-2.7); ALKALINE PHOSPHATASE 60 U/L (46-116); ANION GAP 11 mmol/L (5-15); ASPARTATE AMINO TRANSFERASE 49 U/L (15-37); BILIRUBIN,TOTAL 0.4 MG/DL (0.2-1.0); BLOOD UREA NITROGEN 42 mg/dL (7-18); CALCIUM 8.6 MG/DL (8.5-10.1); CARBON DIOXIDE 21 MMOL/L (21-32); CHLORIDE 111 MMOL/L (98-107); CREATINE KINASE 394 U/L (26-308); CREATININE 1.7 MG/DL (0.55-1.30); POTASSIUM 4.2 MMOL/L (3.5-5.1); SODIUM 142 MMOL/L (136-145)
--- NOTE | 2018-09-10 07:53 | NUR ---
NURSE NOTES: pt in bed with no sob nor in any form of distress noted. Breathing regular and unlabored. denies current pain at this time. will continue to monitor
[2018-09-10 08:00] VITALS: BP 140/71
[2018-09-10] MEDS: Metoprolol 25mg tab ORAL SCH ×2 (08:21→21:08)
[2018-09-10] MEDS: Aspirin EC 81mg tab ORAL SCH (08:21)
[2018-09-10] MEDS: Heparin 5000 units/ml inj SUBQ SCH ×2 (08:23→21:10)
[2018-09-10] MEDS: Norco 5mg/325mg tab ORAL PRN (08:25)
--- NOTE | 2018-09-10 10:27 | Diagnostic Imaging Report ---
Indications: Shortness of breath, elevated d-dimer Technique: IV administration 5 mCi 99m technetium macroaggregated albumin. Images obtained over the lungs in multiple projections. Previously, patient inhaled 40 mCi aerosolized 99M technetium DTPA. Images obtained over the lungs in multiple projections Comparison: Reference made to chest radiograph dated 09/05/2018 Findings: Aerosol images demonstrate central clumping of tracer in the central airways. Perfusion images demonstrates slightly heterogeneous tracer distribution without segmental or subsegmental perfusion defect. No evidence of aerosol perfusion mismatch Impression: Findings are deemed low probability for pulmonary embolus This agrees with the preliminary interpretation provided overnight by [facility] teleradiology service.
[2018-09-10 12:00] VITALS: BP 133/79
--- NOTE | 2018-09-10 12:16 | Pulmonology Progress Note ---
Assessment/Plan Problems: (1) Rhabdomyolysis (2) UTI (lower urinary tract infection) (3) Sepsis (4) NSTEMI (non-ST elevated myocardial infarction) (5) Elevated d-dimer (6) Renal failure (ARF), acute on chronic (7) Diabetic nephropathy Assessment/Plan Better SLIV per renal Optimize pulmonary hygiene/mobilize as tolerated HHN's Abx per ID DVT px: Hep SQ Aspiration precautions DNAR/DNI Subjective Allergies: Coded Allergies: No Known Allergies (Verified , 10/20/11) Subjective Events reviewed VQ and Duplex were negative TTF AFVSS, stable on 2L O2 Ct better, trops and CK downtrending No cough, no congestion, no SOB, no FC Objective Last 24 Hour Vital Signs Date Time Temp Pulse Resp B/P (MAP) Pulse Ox O2 Delivery O2 Flow Rate FiO2 09/10/18 09:40 Nasal Cannula 2.0 09/10/18 08:55 97.8 09/10/18 08:21 90 140/71 09/10/18 08:10 90 16 98 Nasal Cannula 2.0 28 09/10/18 08:00 97.8 98 19 140/71 100 Nasal Cannula 2.0 09/10/18 07:48 94 18 98 Room Air 21 09/10/18 01:37 85 18 97 Nasal Cannula 2.0 28 09/10/18 01:29 80 18 96 Nasal Cannula 2.0 28 09/10/18 00:00 97.7 85 18 128/57 100 Nasal Cannula 2.0 09/09/18 22:22 89 20 98 Nasal Cannula 2.0 28 09/09/18 22:08 95 Nasal Cannula 2.0 28 09/09/18 22:08 Nasal Cannula 2.0 28 09/09/18 22:08 84 20 95 Nasal Cannula 2.0 28 09/09/18 21:00 Nasal Cannula 2.0 09/09/18 20:59 97 137/61 09/09/18 20:00 98.1 95 17 137/61 97 Nasal Cannula 2.0 09/09/18 16:00 97.8 98 19 138/52 99 Nasal Cannula 2.0 09/09/18 13:20 84 20 98 Nasal Cannula 2.0 28 09/09/18 13:10 84 18 96 Nasal Cannula 3.0 32 Intake and Output 09/09/18 09/10/18 18:59 06:59 Intake Total 705 ml Output Total 700 ml 800 ml Balance 5 ml -800 ml Intake Oral 100 ml IV Total 55 ml Other 550 ml Output Urine Total 700 ml 800 ml General Appearance: WD/WN, no acute distress HEENT: normocephalic, atraumatic, anicteric, mucous membranes moist Respiratory/Chest: chest wall non-tender, lungs clear, normal breath sounds, no respiratory distress, no accessory muscle use Cardiovascular: normal peripheral pulses, normal rate, regular rhythm Abdomen: normal bowel sounds, soft, non tender, no organomegaly, non distended , no mass Extremities: no cyanosis, no clubbing, no edema Laboratory Tests 09/09/18 18:40: Urine Eosinophils None seen 09/10/18 05:15: White Blood Count 7.3, Red Blood Count 2.50L, Hemoglobin 8.8L, Hematocrit 27.5L , Mean Corpuscular Volume 110H, Mean Corpuscular Hemoglobin 35.1H, Mean Corpuscular Hemoglobin Concent 31.9L, Red Cell Distribution Width 13.7, Platelet Count 137L, Mean Platelet Volume 6.4L, Neutrophils (%) (Auto) 77.4H, Lymphocytes (%) (Auto) 13.5L, Monocytes (%) (Auto) 6.8, Eosinophils (%) (Auto) 1.9, Basophils (%) (Auto) 0.5, Sodium Level 142, Potassium Level 4.2, Chloride Level 111H, Carbon Dioxide Level 21, Anion Gap 11, Blood Urea Nitrogen 42H, Creatinine 1.7H, Estimat Glomerular Filtration Rate , Glucose Level 144H, Calcium Level 8.6, Phosphorus Level 2.0L, Magnesium Level 1.9, Total Bilirubin 0.4, Aspartate Amino Transf (AST/SGOT) 49H, Alanine Aminotransferase (ALT/SGPT) 51, Alkaline Phosphatase 60, Total Creatine Kinase 394H, Troponin I 0.339H, Pro- B-Type Natriuretic Peptide 8455H, Total Protein 5.9L, Albumin 2.0L, Globulin 3.9 , Albumin/Globulin Ratio 0.5L 09/10/18 05:30: Urine Eosinophils None seen Current Medications Medications (Trade) Dose Ordered Sig/Nikita Route PRN Reason Start Time Stop Time Status Last Admin Dose Admin Acetaminophen (Tylenol) 650 mg Q6H PRN ORAL Mild Pain/Temp > 100.5 09/09/18 15:30 10/05/18 15:29 Acetaminophen/ Hydrocodone Bitart ([place] 5/325) 1 tab Q6H PRN ORAL Moderate Pain (Pain Scale 4-6) 09/09/18 15:30 09/13/18 15:29 09/10/18 08:25 Albuterol/ Ipratropium (Albuterol/ Ipratropium) 3 ml Q6HRT HHN 09/09/18 19:00 09/12/18 08:59 09/10/18 07:00 Allopurinol (Allopurinol) 300 mg DAILY ORAL 09/10/18 09:00 10/07/18 08:59 09/10/18 08:21 Aspirin (Ecotrin) 81 mg DAILY ORAL 09/10/18 09:00 10/06/18 08:59 09/10/18 08:21 Atorvastatin Calcium (Lipitor) 10 mg QHS ORAL 09/09/18 21:00 10/05/18 19:59 09/09/18 20:58 Ceftriaxone Sodium 1 gm/ Sodium Chloride 55 ml @ 110 mls/hr Q24HRS IVPB 09/10/18 15:00 09/17/18 14:59 Dextrose (Dextrose 50%) 25 ml Q30M PRN IV Hypoglycemia 09/09/18 15:15 10/05/18 17:44 Dextrose (Dextrose 50%) 50 ml Q30M PRN IV Hypoglycemia 09/09/18 15:00 10/05/18 18:59 Epoetin James (Epoetin James-EPBX(NON ESRD)) 10,000 unit MON-MON-MON SUBQ 09/10/18 21:00 10/07/18 20:59 Heparin Sodium (Porcine) (Heparin 5000 units/ml) 5,000 units EVERY 12 HOURS SUBQ 09/09/18 21:00 10/06/18 20:59 09/10/18 08:23 Insulin Aspart (NovoLOG) BEFORE MEALS AND HS SUBQ 09/09/18 16:30 10/05/18 20:59 09/10/18 06:27 Lidocaine (Lidoderm 5% PATCH) 2 patch DAILY TDERMAL 09/10/18 09:00 10/06/18 13:59 09/10/18 08:22 Metoprolol Tartrate (Lopressor) 25 mg Q12HR ORAL 09/09/18 21:00 10/05/18 20:59 09/10/18 08:21 Pantoprazole (Protonix) 40 mg EVERY 12 HOURS ORAL 09/09/18 21:00 10/07/18 20:59 09/10/18 08:21 Pregabalin (Lyrica) 50 mg BEDTIME ORAL 09/09/18 21:00 10/05/18 20:59 09/09/18 21:00 Mushtaq Copeland MD Sep 10, 2018 12:16
--- NOTE | 2018-09-10 12:49 | Nephrology Progress Note ---
Assessment/Plan Problem List: (1) Renal failure (ARF), acute on chronic Assessment: Cr lower (2) Diabetic nephropathy (3) Rhabdomyolysis Assessment: CPK lower (4) NSTEMI (non-ST elevated myocardial infarction) Assessment Acute Renal Failure- possibly superimposed on chronic Fall, Rhabdo High K Myocardial injury ( elevated Troponin) UTI DM with Proteinuria: Likely Diabetic Nephropathy HTN right knee swelling ? Arthritis Plan continue as is urine studies gastric protection cardiology eval 2D echo noted monitor CPK antibiotics per orders Subjective ROS Limited/Unobtainable: No Constitutional: Reports: malaise, weakness Objective Objective Last 24 Hour Vital Signs Date Time Temp Pulse Resp B/P (MAP) Pulse Ox O2 Delivery O2 Flow Rate FiO2 09/10/18 09:40 Nasal Cannula 2.0 09/10/18 08:55 97.8 09/10/18 08:21 90 140/71 09/10/18 08:10 90 16 98 Nasal Cannula 2.0 28 09/10/18 08:00 97.8 98 19 140/71 100 Nasal Cannula 2.0 09/10/18 07:48 94 18 98 Room Air 21 09/10/18 01:37 85 18 97 Nasal Cannula 2.0 28 09/10/18 01:29 80 18 96 Nasal Cannula 2.0 28 09/10/18 00:00 97.7 85 18 128/57 100 Nasal Cannula 2.0 09/09/18 22:22 89 20 98 Nasal Cannula 2.0 28 09/09/18 22:08 95 Nasal Cannula 2.0 28 09/09/18 22:08 Nasal Cannula 2.0 28 09/09/18 22:08 84 20 95 Nasal Cannula 2.0 28 09/09/18 21:00 Nasal Cannula 2.0 09/09/18 20:59 97 137/61 09/09/18 20:00 98.1 95 17 137/61 97 Nasal Cannula 2.0 09/09/18 16:00 97.8 98 19 138/52 99 Nasal Cannula 2.0 09/09/18 13:20 84 20 98 Nasal Cannula 2.0 28 09/09/18 13:10 84 18 96 Nasal Cannula 3.0 32 Intake and Output 09/09/18 09/10/18 18:59 06:59 Intake Total 705 ml Output Total 700 ml 800 ml Balance 5 ml -800 ml Intake Oral 100 ml IV Total 55 ml Other 550 ml Output Urine Total 700 ml 800 ml Laboratory Tests 09/09/18 18:40: Urine Eosinophils None seen 09/10/18 05:15: White Blood Count 7.3, Red Blood Count 2.50L, Hemoglobin 8.8L, Hematocrit 27.5L , Mean Corpuscular Volume 110H, Mean Corpuscular Hemoglobin 35.1H, Mean Corpuscular Hemoglobin Concent 31.9L, Red Cell Distribution Width 13.7, Platelet Count 137L, Mean Platelet Volume 6.4L, Neutrophils (%) (Auto) 77.4H, Lymphocytes (%) (Auto) 13.5L, Monocytes (%) (Auto) 6.8, Eosinophils (%) (Auto) 1.9, Basophils (%) (Auto) 0.5, Sodium Level 142, Potassium Level 4.2, Chloride Level 111H, Carbon Dioxide Level 21, Anion Gap 11, Blood Urea Nitrogen 42H, Creatinine 1.7H, Estimat Glomerular Filtration Rate , Glucose Level 144H, Calcium Level 8.6, Phosphorus Level 2.0L, Magnesium Level 1.9, Total Bilirubin 0.4, Aspartate Amino Transf (AST/SGOT) 49H, Alanine Aminotransferase (ALT/SGPT) 51, Alkaline Phosphatase 60, Total Creatine Kinase 394H, Troponin I 0.339H, Pro- B-Type Natriuretic Peptide 8455H, Total Protein 5.9L, Albumin 2.0L, Globulin 3.9 , Albumin/Globulin Ratio 0.5L 09/10/18 05:30: Urine Eosinophils None seen Height (Feet): 5 Height (Inches): 1.00 Weight (Pounds): 180 Objective no change Erick Patterson MD Sep 10, 2018 12:49
--- NOTE | 2018-09-10 14:29 | Cardiac Electrophysiology PN ---
Assessment/Plan Assessment/Plan 1. Non-ST elevation myocardial infarction with troponin of 28, down to 1.5 . Never had chest pain and could be due to rhabdomyolysis and renal failure Family does not want cardiac catheterization. Continue aspirin, beta-millie. Echocardiogram EF 65% 2. Hypertension.On Lopressor 25 bid 3. Hyperlipidemia, DC Lipitor due to high CPKs 4. Rhabdomyolysis. CPK 7600 to 350 on IV fluid. 5. Renal failure, creatinine 2.6 down to 1.7 6. DNR and DNI DW RN Subjective Subjective No events on nonmonitored bed. Objective Last 24 Hour Vital Signs Date Time Temp Pulse Resp B/P (MAP) Pulse Ox O2 Delivery O2 Flow Rate FiO2 09/10/18 12:00 98.1 84 18 133/79 100 Nasal Cannula 2.0 09/10/18 09:40 Nasal Cannula 2.0 09/10/18 08:55 97.8 09/10/18 08:21 90 140/71 09/10/18 08:10 90 16 98 Nasal Cannula 2.0 28 09/10/18 08:00 97.8 98 19 140/71 100 Nasal Cannula 2.0 09/10/18 07:48 94 18 98 Room Air 21 09/10/18 01:37 85 18 97 Nasal Cannula 2.0 28 09/10/18 01:29 80 18 96 Nasal Cannula 2.0 28 09/10/18 00:00 97.7 85 18 128/57 100 Nasal Cannula 2.0 09/09/18 22:22 89 20 98 Nasal Cannula 2.0 28 09/09/18 22:08 95 Nasal Cannula 2.0 28 09/09/18 22:08 Nasal Cannula 2.0 28 09/09/18 22:08 84 20 95 Nasal Cannula 2.0 28 09/09/18 21:00 Nasal Cannula 2.0 09/09/18 20:59 97 137/61 09/09/18 20:00 98.1 95 17 137/61 97 Nasal Cannula 2.0 09/09/18 16:00 97.8 98 19 138/52 99 Nasal Cannula 2.0 Intake and Output 09/09/18 09/10/18 18:59 06:59 Intake Total 705 ml Output Total 700 ml 800 ml Balance 5 ml -800 ml Intake Oral 100 ml IV Total 55 ml Other 550 ml Output Urine Total 700 ml 800 ml Laboratory Tests Test 09/09/18 18:40 09/10/18 05:15 09/10/18 05:30 Urine Eosinophils None seen (NONE SEEN) None seen (NONE SEEN) White Blood Count 7.3 K/UL (4.8-10.8) Red Blood Count 2.50 M/UL (4.20-5.40) L Hemoglobin 8.8 G/DL (12.0-16.0) L Hematocrit 27.5 % (37.0-47.0) L Mean Corpuscular Volume 110 FL (80-99) H Mean Corpuscular Hemoglobin 35.1 PG (27.0-31.0) H Mean Corpuscular Hemoglobin Concent 31.9 G/DL (32.0-36.0) L Red Cell Distribution Width 13.7 % (11.6-14.8) Platelet Count 137 K/UL (150-450) L Mean Platelet Volume 6.4 FL (6.5-10.1) L Neutrophils (%) (Auto) 77.4 % (45.0-75.0) H Lymphocytes (%) (Auto) 13.5 % (20.0-45.0) L Monocytes (%) (Auto) 6.8 % (1.0-10.0) Eosinophils (%) (Auto) 1.9 % (0.0-3.0) Basophils (%) (Auto) 0.5 % (0.0-2.0) Sodium Level 142 MMOL/L (136-145) Potassium Level 4.2 MMOL/L (3.5-5.1) Chloride Level 111 MMOL/L (98-107) H Carbon Dioxide Level 21 MMOL/L (21-32) Anion Gap 11 mmol/L (5-15) Blood Urea Nitrogen 42 mg/dL (7-18) H Creatinine 1.7 MG/DL (0.55-1.30) H Estimat Glomerular Filtration Rate mL/min (>60) Glucose Level 144 MG/DL (74-106) H Calcium Level 8.6 MG/DL (8.5-10.1) Phosphorus Level 2.0 MG/DL (2.5-4.9) L Magnesium Level 1.9 MG/DL (1.8-2.4) Total Bilirubin 0.4 MG/DL (0.2-1.0) Aspartate Amino Transf (AST/SGOT) 49 U/L (15-37) H Alanine Aminotransferase (ALT/SGPT) 51 U/L (12-78) Alkaline Phosphatase 60 U/L (46-116) Total Creatine Kinase 394 U/L (26-308) H Troponin I 0.339 ng/mL (0.000-0.056) Pro-B-Type Natriuretic Peptide 8455 pg/mL (0-125) H Total Protein 5.9 G/DL (6.4-8.2) L Albumin 2.0 G/DL (3.4-5.0) L Globulin 3.9 g/dL Albumin/Globulin Ratio 0.5 (1.0-2.7) L Objective HEAD AND NECK: No JVD. LUNGS: Coarse rhonchi. CARDIOVASCULAR: Regular S1 and S2 with no gallop or murmur. ABDOMEN: Soft. EXTREMITIES: No pitting edema. Kevin Ruiz MD Sep 10, 2018 14:29
[2018-09-10] MEDS: cefTRIAXone 1 GM in NS 55 ML IVPB SCH (15:33)
[2018-09-10 16:00] VITALS: BP 103/59
--- NOTE | 2018-09-10 17:16 | Infectious Diseases Prog Note ---
Assessment/Plan Assessment/Plan ASSESSMENT AND PLAN: 1. e.coli uti/pyelonephritis, sepsis, fevers, leukocytosis, OA, doubt right knee septic arthritis per ortho - rocephin iv - day # 5 - monitor labs and temperatures - can transition to oral keflex 500 mg po bid x 5 days upon discharge 2. Anemia. 3. Acute kidney injury. 4. Mild hyperkalemia. 5. Diabetes. 6. Hypertension. 7. Blood sugar and blood pressure treatment for diabetes and hypertension per primary. 8. Hyperlipidemia, dyslipidemia, hypercholesteremia. 9. Osteoarthritis. 10. Past medical history as noted. 11. No known drug allergies. 12. Social history is negative. 13. Family history is noncontributory. 14. MAR was noted. 15. Case was discussed with RN. 16. The patient is in ICU for elevated troponin, possible non-STEMI. 17. Continue treatment per primary consultants. 18. Notes and records were noted. Orders were entered. Subjective Constitutional: Denies: fever HEENT: Denies: congestion Respiratory: Denies: shortness of breath Cardiovascular: Denies: chest pain Gastrointestinal/Abdominal: Denies: nausea, diarrhea Genitourinary: Reports: other - + leo Neurologic: Denies: headache Psychiatric: Denies: depression Hematologic: Denies: bleeding Musculoskeletal: Denies: pain Allergies: Coded Allergies: No Known Allergies (Verified , 10/20/11) Objective Vital Signs Last 24 Hour Vital Signs Date Time Temp Pulse Resp B/P (MAP) Pulse Ox O2 Delivery O2 Flow Rate FiO2 09/10/18 16:00 98.7 98 18 103/59 97 Nasal Cannula 2.0 09/10/18 15:24 92 16 96 Nasal Cannula 2.0 28 09/10/18 15:12 96 Nasal Cannula 2.0 28 09/10/18 15:12 Nasal Cannula 2.0 28 09/10/18 15:11 100 20 96 Nasal Cannula 2.0 28 09/10/18 12:00 98.1 84 18 133/79 100 Nasal Cannula 2.0 09/10/18 09:40 Nasal Cannula 2.0 09/10/18 08:55 97.8 09/10/18 08:21 90 140/71 09/10/18 08:10 90 16 98 Nasal Cannula 2.0 28 09/10/18 08:00 97.8 98 19 140/71 100 Nasal Cannula 2.0 09/10/18 07:48 94 18 98 Room Air 21 09/10/18 01:37 85 18 97 Nasal Cannula 2.0 28 09/10/18 01:29 80 18 96 Nasal Cannula 2.0 28 09/10/18 00:00 97.7 85 18 128/57 100 Nasal Cannula 2.0 09/09/18 22:22 89 20 98 Nasal Cannula 2.0 28 09/09/18 22:08 95 Nasal Cannula 2.0 28 09/09/18 22:08 Nasal Cannula 2.0 28 09/09/18 22:08 84 20 95 Nasal Cannula 2.0 28 09/09/18 21:00 Nasal Cannula 2.0 09/09/18 20:59 97 137/61 09/09/18 20:00 98.1 95 17 137/61 97 Nasal Cannula 2.0 Height (Feet): 5 Height (Inches): 1.00 Weight (Pounds): 180 General Appearance: no acute distress HEENT: normocephalic, atraumatic, anicteric, mucous membranes moist Respiratory/Chest: lungs clear, normal breath sounds, no respiratory distress, no accessory muscle use Cardiovascular: normal rate, regular rhythm, no gallop/murmur, no JVD Abdomen: normal bowel sounds, soft, non tender, no organomegaly, non distended Genitourinary: other - + leo - urine clearer Extremities: no cyanosis Skin: no rash Neurologic/Psychiatric: manager universal II-XII grossly normal, alert, oriented x 3, responsive Lymphatic: no neck adenopathy Musculoskeletal: no effusion Objective Chest x-ray - nad, report noted Microbiology Date/Time Source Procedure Growth Status 09/06/18 18:58 Blood Blood Culture - Preliminary NO GROWTH AFTER 72 HOURS Resulted 09/05/18 16:28 Nasal Nares MRSA Culture - Final NO METHICILLIN RESISTANT STAPH AUREUS... Complete 09/05/18 14:00 Urine,Clean Catch Urine Culture - Final Escherichia Coli Complete 09/05/18 16:28 Rectum VRE Culture - Final NO VANCOMYCIN RESISTANT ENTEROCOCCUS ... Complete 09/05/18 16:28 Rectum - Final NO CARBAPENEM-RESISTANT ENTEROBACTERI... Complete Laboratory Tests Test 09/09/18 18:40 09/10/18 05:15 09/10/18 05:30 Urine Eosinophils None seen (NONE SEEN) None seen (NONE SEEN) White Blood Count 7.3 K/UL (4.8-10.8) Red Blood Count 2.50 M/UL (4.20-5.40) L Hemoglobin 8.8 G/DL (12.0-16.0) L Hematocrit 27.5 % (37.0-47.0) L Mean Corpuscular Volume 110 FL (80-99) H Mean Corpuscular Hemoglobin 35.1 PG (27.0-31.0) H Mean Corpuscular Hemoglobin Concent 31.9 G/DL (32.0-36.0) L Red Cell Distribution Width 13.7 % (11.6-14.8) Platelet Count 137 K/UL (150-450) L Mean Platelet Volume 6.4 FL (6.5-10.1) L Neutrophils (%) (Auto) 77.4 % (45.0-75.0) H Lymphocytes (%) (Auto) 13.5 % (20.0-45.0) L Monocytes (%) (Auto) 6.8 % (1.0-10.0) Eosinophils (%) (Auto) 1.9 % (0.0-3.0) Basophils (%) (Auto) 0.5 % (0.0-2.0) Sodium Level 142 MMOL/L (136-145) Potassium Level 4.2 MMOL/L (3.5-5.1) Chloride Level 111 MMOL/L (98-107) H Carbon Dioxide Level 21 MMOL/L (21-32) Anion Gap 11 mmol/L (5-15) Blood Urea Nitrogen 42 mg/dL (7-18) H Creatinine 1.7 MG/DL (0.55-1.30) H Estimat Glomerular Filtration Rate mL/min (>60) Glucose Level 144 MG/DL (74-106) H Calcium Level 8.6 MG/DL (8.5-10.1) Phosphorus Level 2.0 MG/DL (2.5-4.9) L Magnesium Level 1.9 MG/DL (1.8-2.4) Total Bilirubin 0.4 MG/DL (0.2-1.0) Aspartate Amino Transf (AST/SGOT) 49 U/L (15-37) H Alanine Aminotransferase (ALT/SGPT) 51 U/L (12-78) Alkaline Phosphatase 60 U/L (46-116) Total Creatine Kinase 394 U/L (26-308) H Troponin I 0.339 ng/mL (0.000-0.056) Pro-B-Type Natriuretic Peptide 8455 pg/mL (0-125) H Total Protein 5.9 G/DL (6.4-8.2) L Albumin 2.0 G/DL (3.4-5.0) L Globulin 3.9 g/dL Albumin/Globulin Ratio 0.5 (1.0-2.7) L Current Medications Medications (Trade) Dose Ordered Sig/Nikita Route PRN Reason Start Time Stop Time Status Last Admin Dose Admin Acetaminophen (Tylenol) 650 mg Q6H PRN ORAL Mild Pain/Temp > 100.5 09/09/18 15:30 10/05/18 15:29 Acetaminophen/ Hydrocodone Bitart ([place] 5/325) 1 tab Q6H PRN ORAL Moderate Pain (Pain Scale 4-6) 09/09/18 15:30 09/13/18 15:29 09/10/18 08:25 Albuterol/ Ipratropium (Albuterol/ Ipratropium) 3 ml Q6HRT HHN 09/09/18 19:00 09/12/18 08:59 09/10/18 13:00 Allopurinol (Allopurinol) 300 mg DAILY ORAL 09/10/18 09:00 10/07/18 08:59 09/10/18 08:21 Aspirin (Ecotrin) 81 mg DAILY ORAL 09/10/18 09:00 10/06/18 08:59 09/10/18 08:21 Ceftriaxone Sodium 1 gm/ Sodium Chloride 55 ml @ 110 mls/hr Q24HRS IVPB 09/10/18 15:00 09/17/18 14:59 09/10/18 15:33 Dextrose (Dextrose 50%) 25 ml Q30M PRN IV Hypoglycemia 09/09/18 15:15 10/05/18 17:44 Dextrose (Dextrose 50%) 50 ml Q30M PRN IV Hypoglycemia 09/09/18 15:00 10/05/18 18:59 Epoetin James (Epoetin James-EPBX(NON ESRD)) 10,000 unit MON-MON-MON SUBQ 09/10/18 21:00 10/07/18 20:59 Heparin Sodium (Porcine) (Heparin 5000 units/ml) 5,000 units EVERY 12 HOURS SUBQ 09/09/18 21:00 10/06/18 20:59 09/10/18 08:23 Insulin Aspart (NovoLOG) BEFORE MEALS AND HS SUBQ 09/09/18 16:30 10/05/18 20:59 09/10/18 12:26 Lidocaine (Lidoderm 5% PATCH) 2 patch DAILY TDERMAL 09/10/18 09:00 10/06/18 13:59 09/10/18 08:22 Metoprolol Tartrate (Lopressor) 25 mg Q12HR ORAL 09/09/18 21:00 10/05/18 20:59 09/10/18 08:21 Pantoprazole (Protonix) 40 mg EVERY 12 HOURS ORAL 09/09/18 21:00 10/07/18 20:59 09/10/18 08:21 Pregabalin (Lyrica) 50 mg BEDTIME ORAL 09/09/18 21:00 10/05/18 20:59 09/09/18 21:00 Yuliet Tubbs MD Sep 10, 2018 17:16
[2018-09-10] MEDS ORDERED: LOPRESSOR25 M1 ORAL (17:34)
[2018-09-10] MEDS ORDERED: DUONEB 0.5-3(2.53 ML HHN (17:34)
[2018-09-10] MEDS ORDERED: CEFUROXIME250 MG PO (17:34)
--- NOTE | 2018-09-10 17:38 | Discharge Summary ---
Discharge Summary Hospital Course Date of Admission Sep 05, 2018 at 14:39 Date of Discharge 09/10/18 Admitting Diagnosis AMS HPI Hwa Jad Huizar is a 88 year old female who was admitted on Sep 05, 2018 at 14:39 for Altered Mental Status Consultations Nephrology,Cardiology,Pulmonology,Orthopedics,Hematology Hospital Course Patient presented from home with fall, down on the ground for 24 hours. Initially admitted to ICU with severe sepsis, E. coli UTI + HAIR + rhabdomyolysis and NSTEMI. Treated medically with heparin drip, ASA, statin and B-millie Her condition stabilized and she was downgraded to medical floor. Seen by PT, SNF recommended. #Fall #Rhabdomyolysis, resolving #HAIR, improved renal function #Hyperkalemia, improved #Metabolic acidosis, improving improved renal function and CK levels continue to hold Diovan repeat BMP in 3 days #NSTEMI -seen by cardiology -medical management only per family -continue ASA,Statin, B-millie #Right knee swelling and pain #Elevated CRP -Ortho eval appreciated -no indication for arthrocentesis at this time -continue symptomatic management #Severe sepsis, present on admission #E. coli UTI -complete 5 more days of sepsis #Type 2 DM -hold Actos -lispro SS #HTN, borderline blood pressures -hold Diovan and Lasix with HAIR -monitor BP DNR Discharge Medications New Medications: Cefuroxime Axetil* (Cefuroxime*) 250 Mg Tablet 250 MG PO Q12HR for 5 Days, #10 TAB Ipratropium/Albuterol Sulfate (DuoNeb 0.5-3(2.5)mg/3ml) 3 Ml Ampul.neb 3 ML HHN Q6HRT for 5 Days, #2 EA Metoprolol Tartrate (Metoprolol Tartrate) 25 Mg Tablet 25 MG ORAL Q12HR for 15 Days, #30 TAB Continued Medications: Acetaminophen With Codeine (T#3) (Tylenol #3 Tab*) Y Tab 1 TAB ORAL BID, TAB Aspirin (Aspirin EC) 81 Mg Tabec 81 MG ORAL DAILY, TAB Atorvastatin Calcium* (Atorvastatin Calcium*) 20 Mg Tablet 10 MG ORAL BEDTIME, TAB Esomeprazole Magnesium (Nexium) 40 Mg Capsule.dr 40 MG ORAL DAILY, CAP Furosemide* (Lasix*) 20 Mg Tablet 20 MG ORAL DAILY, TAB Lidocaine (Lidoderm) 700 Mg Adh..patch 2 PATCH TOPIC DAILY, #7 PATCH 0 Refills Patch(es) may remain in place for up to 12 hours in any 24-hour period. Pregabalin (Lyrica) 50 Mg Cap 50 MG ORAL HS, CAP Raloxifene Hcl* (Evista*) 60 Mg Tablet 60 MG ORAL DAILY, TAB Discontinued Medications: Celecoxib* (Celebrex*) 200 Mg Capsule 200 MG ORAL DAILY, CAP Pioglitazone Hcl* (Actos*) 15 Mg Tablet 15 MG ORAL DAILY, TAB Valsartan (Diovan) 1 Tab Tab 1 TAB ORAL DAILY, TAB Discharge Discharge Disposition Patient was discharged to SNF Discharge Diagnoses: (1) Sepsis (2) NSTEMI (non-ST elevated myocardial infarction) (3) UTI (lower urinary tract infection) (4) Rhabdomyolysis (5) Renal failure (ARF), acute on chronic Caden Kelsey MD Sep 10, 2018 17:38
--- NOTE | 2018-09-10 19:34 | NUR ---
HAND-OFF: Report given to ROQUE Bhardwaj.
--- NOTE | 2018-09-10 19:51 | NUR ---
NURSE NOTES: Received patient in bed, awake, confused/disoriented, speaks Maltese only. Call light is within reach, bed is locked in low position, and alarm is on. Will continue to monitor for safety and comfort.
[2018-09-10 20:00] VITALS: BP 142/52
[2018-09-10] MEDS ORDERED: Epoetin Alfa-EPBX (NON ESRD)10,000 unit/ml vial SUBQ SCH ×2 (21:00)
[2018-09-10] MEDS: Lyrica 50mg cap ORAL SCH (21:08)
--- NOTE | 2018-09-10 22:57 | General Progress Note ---
Assessment/Plan Assessment/Plan Assessment/Plan: # Thrombocytopenia - potential causes multifactorial, evaluate liver and viral etiologies to begin, also could be related to underlying medications patient has received. --> Hep panel and HIV ordered --> US abd to evaluate for cirrhosis and hsm ordered -->VQ scan reveals, low probability for pulmonary embolus --> Peripheral smear ordered to evaluate for blasts /schistocytes --> abx and other meds have been reviewed --> ok for ppx if plt >50k w/ either heparin or lovenox --> Transfuse if Plt < 20k and fever, or if Plt < 10k without fever # Anemia of chronic disease due to underlying chronic medical issues, multifactorial, ferritin elev --> Anemia workup has been ordered and reviewed --> No evidence of hemolysis is noted, peripheral smear has been reviewed. --> Hgb goal >7. Transfuse prn. --> Epogen or iron at this time is not particularly indicated --> Medications have been reviewed # Fall , ground level --> pt/ot as needed, prn # Rhabdomyolysis --> ivf to be given # HAIR # Hyperkalemia # Possible NSTEMI --> seen by Cardiology --> off anticoag, appreciate cards recs # Possible UTI --> start ceftriaxone --> follow up urine culture # Type 2 DM --> lispro SS # HTN --> sbp goal <150 # DNR The timing of this note does not necessarily reflect the time of the patient was seen. Greatly appreciate consultation! Subjective ROS Limited/Unobtainable: Yes Allergies: Coded Allergies: No Known Allergies (Verified , 10/20/11) Subjective 09/10:patient resting in bed, confused/disoriented, speaks Faroese only, VQ scan reveals, low probability for pulmonary embolus Objective Last 24 Hour Vital Signs Date Time Temp Pulse Resp B/P (MAP) Pulse Ox O2 Delivery O2 Flow Rate FiO2 09/10/18 22:21 Nasal Cannula 2.0 09/10/18 21:57 Nasal Cannula 2.0 28 09/10/18 21:57 95 18 97 Nasal Cannula 2.0 28 09/10/18 21:57 97 Nasal Cannula 2.0 28 09/10/18 21:08 85 142/85 09/10/18 20:00 96.5 81 18 142/52 Room Air 81 09/10/18 16:00 98.7 98 18 103/59 97 Nasal Cannula 2.0 09/10/18 15:24 92 16 96 Nasal Cannula 2.0 28 09/10/18 15:12 96 Nasal Cannula 2.0 28 09/10/18 15:12 Nasal Cannula 2.0 28 09/10/18 15:11 100 20 96 Nasal Cannula 2.0 28 09/10/18 12:00 98.1 84 18 133/79 100 Nasal Cannula 2.0 09/10/18 09:40 Nasal Cannula 2.0 09/10/18 08:55 97.8 09/10/18 08:21 90 140/71 09/10/18 08:10 90 16 98 Nasal Cannula 2.0 28 09/10/18 08:00 97.8 98 19 140/71 100 Nasal Cannula 2.0 09/10/18 07:48 94 18 98 Room Air 21 09/10/18 01:37 85 18 97 Nasal Cannula 2.0 28 09/10/18 01:29 80 18 96 Nasal Cannula 2.0 28 09/10/18 00:00 97.7 85 18 128/57 100 Nasal Cannula 2.0 Intake and Output 09/09/18 09/10/18 19:00 07:00 Intake Total 705 ml Output Total 700 ml 800 ml Balance 5 ml -800 ml Intake Oral 100 ml IV Total 55 ml Other 550 ml Output Urine Total 700 ml 800 ml Laboratory Tests 09/10/18 05:15: White Blood Count 7.3, Red Blood Count 2.50L, Hemoglobin 8.8L, Hematocrit 27.5L , Mean Corpuscular Volume 110H, Mean Corpuscular Hemoglobin 35.1H, Mean Corpuscular Hemoglobin Concent 31.9L, Red Cell Distribution Width 13.7, Platelet Count 137L, Mean Platelet Volume 6.4L, Neutrophils (%) (Auto) 77.4H, Lymphocytes (%) (Auto) 13.5L, Monocytes (%) (Auto) 6.8, Eosinophils (%) (Auto) 1.9, Basophils (%) (Auto) 0.5, Sodium Level 142, Potassium Level 4.2, Chloride Level 111H, Carbon Dioxide Level 21, Anion Gap 11, Blood Urea Nitrogen 42H, Creatinine 1.7H, Estimat Glomerular Filtration Rate , Glucose Level 144H, Calcium Level 8.6, Phosphorus Level 2.0L, Magnesium Level 1.9, Total Bilirubin 0.4, Aspartate Amino Transf (AST/SGOT) 49H, Alanine Aminotransferase (ALT/SGPT) 51, Alkaline Phosphatase 60, Total Creatine Kinase 394H, Troponin I 0.339H, Pro- B-Type Natriuretic Peptide 8455H, Total Protein 5.9L, Albumin 2.0L, Globulin 3.9 , Albumin/Globulin Ratio 0.5L 09/10/18 05:30: Urine Eosinophils None seen Height (Feet): 5 Height (Inches): 1.00 Weight (Pounds): 180 Objective Physical Exam General Appearance: no apparent distress, alert HEENT: normocephalic, atraumatic Neck: non-tender, normal alignment Respiratory/Chest: chest wall non-tender Abdomen: normal bowel sounds, non tender, soft Extremities: normal range of motion, other - Tender right knee ttp better Neurologic: tub puller II-XII grossly normal Musculoskeletal: normal muscle bulk, no effusion Balbir Allison MD Sep 10, 2018 22:57
[2018-09-11] VITALS: BP 163/89
[2018-09-11] MEDS: Norco 5mg/325mg tab ORAL PRN (01:28)
[2018-09-11] MEDS: Albuterol/Ipratropium 3ml neb HHN SCH ×4 (01:59→20:03)
[2018-09-11 04:00] VITALS: BP 122/61
[2018-09-11] MEDS: NovoLOG Insulin Flexpen SUBQ SCH ×4 (06:57→21:00)
--- NOTE | 2018-09-11 07:16 | NUR ---
HAND-OFF: Report given to Analisa NEVAREZ.
--- NOTE | 2018-09-11 07:31 | NUR ---
NURSE NOTES: Received report from ROQUE Bhardwaj. patient in bed. breathing tx. verbally responsive. no respiratory distress noted. no c/o pain at this time. bed in the lowest position. bed alarm on. call light within reach. will continue to monitor
[2018-09-11 08:10] LABS: BASOPHILS % (AUTO) 0.5 % (0.0-2.0); EOSINOPHILS % (AUTO) 0.5 % (0.0-3.0); HEMOGLOBIN 8.5 G/DL (12.0-16.0); LYMPHOCYTES % (AUTO) 11.6 % (20.0-45.0); MEAN CORPUSCULAR VOLUME 110 FL (80-99); MONOCYTES % (AUTO) 4.8 % (1.0-10.0); NEUTROPHILS % (AUTO) 82.6 % (45.0-75.0); PLATELET COUNT 154 K/UL (150-450); RED BLOOD COUNT 2.45 M/UL (4.20-5.40); RED CELL DISTRIBUTION WIDTH 14.1 % (11.6-14.8); WHITE BLOOD COUNT 8.1 K/UL (4.8-10.8)
[2018-09-11 08:17] LABS: ANION GAP 10 mmol/L (5-15); BLOOD UREA NITROGEN 36 mg/dL (7-18); CALCIUM 8.8 MG/DL (8.5-10.1); CARBON DIOXIDE 21 MMOL/L (21-32); CHLORIDE 110 MMOL/L (98-107); CREATININE 1.7 MG/DL (0.55-1.30); POTASSIUM 4.4 MMOL/L (3.5-5.1); SODIUM 141 MMOL/L (136-145)
[2018-09-11 08:19] VITALS: BP 139/68
[2018-09-11] MEDS: Aspirin EC 81mg tab ORAL SCH (08:26)
[2018-09-11] MEDS: Metoprolol 25mg tab ORAL SCH ×2 (08:27→20:45)
[2018-09-11] MEDS: Heparin 5000 units/ml inj SUBQ SCH ×2 (08:29→20:47)
--- NOTE | 2018-09-11 08:34 | Pulmonology Progress Note ---
Assessment/Plan Problems: (1) Rhabdomyolysis (2) UTI (lower urinary tract infection) (3) Sepsis (4) NSTEMI (non-ST elevated myocardial infarction) (5) Elevated d-dimer (6) Renal failure (ARF), acute on chronic (7) Diabetic nephropathy Assessment/Plan SLIV per renal Optimize pulmonary hygiene/mobilize as tolerated HHN's Abx per ID DVT px: Hep SQ Aspiration precautions DNAR/DNI Stable from a respiratory standpoint, will sign off and follow peripherally Subjective Allergies: Coded Allergies: No Known Allergies (Verified , 10/20/11) Subjective AFVSS, on RA No cough, no congestion, no SOB, no FC Objective Last 24 Hour Vital Signs Date Time Temp Pulse Resp B/P (MAP) Pulse Ox O2 Delivery O2 Flow Rate FiO2 09/11/18 08:27 103 139/68 09/11/18 08:19 97.9 103 139/68 Room Air 19 09/11/18 07:25 94 18 97 Room Air 21 09/11/18 07:24 96 Room Air 21 09/11/18 07:24 Room Air 21 09/11/18 07:20 96 16 95 Room Air 21 09/11/18 04:00 97.8 96 122/61 Room Air 16 09/11/18 02:10 98 18 98 Nasal Cannula 2.0 09/11/18 01:59 96 18 97 Nasal Cannula 2.0 28 09/11/18 00:00 98.4 105 19 163/89 Room Air 09/10/18 22:21 Nasal Cannula 2.0 09/10/18 22:07 91 18 100 Nasal Cannula 2.0 28 09/10/18 21:57 Nasal Cannula 2.0 28 09/10/18 21:57 95 18 97 Nasal Cannula 2.0 28 09/10/18 21:57 97 Nasal Cannula 2.0 28 09/10/18 21:08 85 142/85 09/10/18 20:00 96.5 81 18 142/52 Room Air 81 09/10/18 16:00 98.7 98 18 103/59 97 Nasal Cannula 2.0 09/10/18 15:24 92 16 96 Nasal Cannula 2.0 28 09/10/18 15:12 96 Nasal Cannula 2.0 28 09/10/18 15:12 Nasal Cannula 2.0 28 09/10/18 15:11 100 20 96 Nasal Cannula 2.0 28 09/10/18 12:00 98.1 84 18 133/79 100 Nasal Cannula 2.0 09/10/18 09:40 Nasal Cannula 2.0 09/10/18 08:55 97.8 Intake and Output 09/10/18 09/11/18 19:00 07:00 Intake Total 1055 ml Balance 1055 ml Intake Oral 1000 ml IV Total 55 ml General Appearance: WD/WN, no acute distress HEENT: normocephalic, atraumatic Respiratory/Chest: chest wall non-tender, lungs clear, normal breath sounds, no respiratory distress, no accessory muscle use Cardiovascular: normal peripheral pulses, normal rate, regular rhythm Abdomen: normal bowel sounds, soft, non tender, no organomegaly, non distended , no mass Extremities: no cyanosis, no clubbing, no edema Laboratory Tests 09/11/18 05:45: Urine Eosinophils [Pending] 09/11/18 07:39: White Blood Count 8.1, Red Blood Count 2.45L, Hemoglobin 8.5L, Hematocrit 27.0L , Mean Corpuscular Volume 110H, Mean Corpuscular Hemoglobin 34.8H, Mean Corpuscular Hemoglobin Concent 31.6L, Red Cell Distribution Width 14.1, Platelet Count 154, Mean Platelet Volume 6.7, Neutrophils (%) (Auto) 82.6H, Lymphocytes (%) (Auto) 11.6L, Monocytes (%) (Auto) 4.8, Eosinophils (%) (Auto) 0.5, Basophils (%) (Auto) 0.5, Sodium Level 141, Potassium Level 4.4, Chloride Level 110H, Carbon Dioxide Level 21, Anion Gap 10, Blood Urea Nitrogen 36H, Creatinine 1.7H, Estimat Glomerular Filtration Rate , Glucose Level 161H, Calcium Level 8.8 Current Medications Medications (Trade) Dose Ordered Sig/Nikita Route PRN Reason Start Time Stop Time Status Last Admin Dose Admin Acetaminophen (Tylenol) 650 mg Q6H PRN ORAL Mild Pain/Temp > 100.5 09/09/18 15:30 10/05/18 15:29 Acetaminophen/ Hydrocodone Bitart ([place] 5/325) 1 tab Q6H PRN ORAL Moderate Pain (Pain Scale 4-6) 09/09/18 15:30 09/13/18 15:29 09/11/18 01:28 Albuterol/ Ipratropium (Albuterol/ Ipratropium) 3 ml Q6HRT HHN 09/09/18 19:00 09/12/18 08:59 09/11/18 07:23 Allopurinol (Allopurinol) 300 mg DAILY ORAL 09/10/18 09:00 10/07/18 08:59 09/11/18 08:26 Aspirin (Ecotrin) 81 mg DAILY ORAL 09/10/18 09:00 10/06/18 08:59 09/11/18 08:26 Ceftriaxone Sodium 1 gm/ Sodium Chloride 55 ml @ 110 mls/hr Q24HRS IVPB 09/10/18 15:00 09/17/18 14:59 09/10/18 15:33 Dextrose (Dextrose 50%) 25 ml Q30M PRN IV Hypoglycemia 09/09/18 15:15 10/05/18 17:44 Dextrose (Dextrose 50%) 50 ml Q30M PRN IV Hypoglycemia 09/09/18 15:00 10/05/18 18:59 Epoetin James (Epoetin James-EPBX(NON ESRD)) 10,000 unit MON-WED-FRI SUBQ 09/10/18 21:00 10/07/18 20:59 09/10/18 21:16 Heparin Sodium (Porcine) (Heparin 5000 units/ml) 5,000 units EVERY 12 HOURS SUBQ 09/09/18 21:00 10/06/18 20:59 09/11/18 08:29 Insulin Aspart (NovoLOG) BEFORE MEALS AND HS SUBQ 09/09/18 16:30 10/05/18 20:59 09/11/18 06:57 Lidocaine (Lidoderm 5% PATCH) 2 patch DAILY TDERMAL 09/10/18 09:00 10/06/18 13:59 09/11/18 08:32 Metoprolol Tartrate (Lopressor) 25 mg Q12HR ORAL 09/09/18 21:00 10/05/18 20:59 09/11/18 08:27 Pantoprazole (Protonix) 40 mg EVERY 12 HOURS ORAL 09/09/18 21:00 10/07/18 20:59 09/11/18 08:26 Pregabalin (Lyrica) 50 mg BEDTIME ORAL 09/09/18 21:00 10/05/18 20:59 09/10/18 21:08 Mushtaq Copeland MD Sep 11, 2018 08:34
[2018-09-11 09:42] LABS: PHOSPHORUS 2.4 MG/DL (2.5-4.9)
--- NOTE | 2018-09-11 11:16 | Nephrology Progress Note ---
Assessment/Plan Problem List: (1) Renal failure (ARF), acute on chronic Assessment: Cr lower (2) Diabetic nephropathy (3) Rhabdomyolysis Assessment: CPK lower (4) NSTEMI (non-ST elevated myocardial infarction) Assessment Acute Renal Failure- possibly superimposed on chronic Fall, Rhabdo High K Myocardial injury ( elevated Troponin) UTI DM with Proteinuria: Likely Diabetic Nephropathy HTN right knee swelling ? Arthritis Plan mag and phos supplement urine studies gastric protection cardiology eval 2D echo noted monitor CPK antibiotics per orders Subjective ROS Limited/Unobtainable: No Constitutional: Reports: malaise, weakness Objective Objective Last 24 Hour Vital Signs Date Time Temp Pulse Resp B/P (MAP) Pulse Ox O2 Delivery O2 Flow Rate FiO2 09/11/18 08:27 103 139/68 09/11/18 08:19 97.9 103 139/68 Room Air 19 09/11/18 07:25 94 18 97 Room Air 21 09/11/18 07:24 96 Room Air 21 09/11/18 07:24 Room Air 21 09/11/18 07:20 96 16 95 Room Air 21 09/11/18 04:00 97.8 96 122/61 Room Air 16 09/11/18 02:10 98 18 98 Nasal Cannula 2.0 09/11/18 01:59 96 18 97 Nasal Cannula 2.0 09/11/18 00:00 98.4 105 19 163/89 Room Air 09/10/18 22:21 Nasal Cannula 2.0 09/10/18 22:07 91 18 100 Nasal Cannula 2.0 28 09/10/18 21:57 Nasal Cannula 2.0 28 09/10/18 21:57 95 18 97 Nasal Cannula 2.0 28 09/10/18 21:57 97 Nasal Cannula 2.0 28 09/10/18 21:08 85 142/85 09/10/18 20:00 96.5 81 18 142/52 Room Air 81 09/10/18 16:00 98.7 98 18 103/59 97 Nasal Cannula 2.0 09/10/18 15:24 92 16 96 Nasal Cannula 2.0 28 09/10/18 15:12 96 Nasal Cannula 2.0 28 09/10/18 15:12 Nasal Cannula 2.0 28 09/10/18 15:11 100 20 96 Nasal Cannula 2.0 28 09/10/18 12:00 98.1 84 18 133/79 100 Nasal Cannula 2.0 Intake and Output 09/10/18 09/11/18 18:59 06:59 Intake Total 1055 ml Balance 1055 ml Intake Oral 1000 ml IV Total 55 ml Laboratory Tests 09/11/18 05:45: Urine Eosinophils [Pending] 09/11/18 07:39: White Blood Count 8.1, Red Blood Count 2.45L, Hemoglobin 8.5L, Hematocrit 27.0L , Mean Corpuscular Volume 110H, Mean Corpuscular Hemoglobin 34.8H, Mean Corpuscular Hemoglobin Concent 31.6L, Red Cell Distribution Width 14.1, Platelet Count 154, Mean Platelet Volume 6.7, Neutrophils (%) (Auto) 82.6H, Lymphocytes (%) (Auto) 11.6L, Monocytes (%) (Auto) 4.8, Eosinophils (%) (Auto) 0.5, Basophils (%) (Auto) 0.5, Sodium Level 141, Potassium Level 4.4, Chloride Level 110H, Carbon Dioxide Level 21, Anion Gap 10, Blood Urea Nitrogen 36H, Creatinine 1.7H, Estimat Glomerular Filtration Rate , Glucose Level 161H, Calcium Level 8.8, Phosphorus Level 2.4L, Magnesium Level 1.7L Height (Feet): 5 Height (Inches): 1.00 Weight (Pounds): 180 Cardiovascular: tachycardia Respiratory/Chest: decreased breath sounds Abdomen: distended Objective no change Ercik Patterson MD Sep 11, 2018 11:16
--- NOTE | 2018-09-11 11:37 | General Progress Note ---
Assessment/Plan Assessment/Plan Patient presented from home with fall, down on the ground for 24 hours. Initially admitted to ICU with severe sepsis, E. coli UTI + HAIR + rhabdomyolysis and NSTEMI. Treated medically with heparin drip, ASA, statin and B-millie Her condition stabilized and she was downgraded to medical floor. Seen by PT, SNF recommended. #Fall #Rhabdomyolysis, resolving #HAIR, improved renal function #Hyperkalemia, improved #Metabolic acidosis, improving continue to hold nephrotoxic meds -outpatient followup D/c home today with home care #NSTEMI -seen by cardiology -medical management only per family -continue ASA,Statin, B-millie #Right knee swelling and pain #Elevated CRP -Ortho eval appreciated -no indication for arthrocentesis at this time -continue symptomatic management #Severe sepsis, present on admission #E. coli UTI -complete 4 more days of Ceftin #Type 2 DM -hold Actos -lispro SS #HTN, borderline blood pressures -hold Diovan and Lasix with HAIR -monitor BP DNR Subjective Date patient seen: Sep 11, 2018 Time patient seen: 11:35 Constitutional: Denies: chills, fever Cardiovascular: Denies: chest pain Respiratory: Denies: cough Gastrointestinal/Abdominal: Reports: abdominal pain Allergies: Coded Allergies: No Known Allergies (Verified , 10/20/11) Subjective Medicine followup for multiple medical problems including rhbadomyolysis, NSTEMI , severe sepsis due to UTI, HAIR, metabolic acidosis. No acute issues overnight - daughter refused SNF. She will be discharged home today with home care Objective Last 24 Hour Vital Signs Date Time Temp Pulse Resp B/P (MAP) Pulse Ox O2 Delivery O2 Flow Rate FiO2 09/11/18 09:00 Nasal Cannula 2.0 09/11/18 08:27 103 139/68 09/11/18 08:19 97.9 103 139/68 Room Air 19 09/11/18 07:25 94 18 97 Room Air 21 09/11/18 07:24 96 Room Air 21 09/11/18 07:24 Room Air 21 09/11/18 07:20 96 16 95 Room Air 21 09/11/18 04:00 97.8 96 122/61 Room Air 16 09/11/18 02:10 98 18 98 Nasal Cannula 2.0 28 09/11/18 01:59 96 18 97 Nasal Cannula 2.0 28 09/11/18 00:00 98.4 105 19 163/89 Room Air 09/10/18 22:21 Nasal Cannula 2.0 09/10/18 22:07 91 18 100 Nasal Cannula 2.0 28 09/10/18 21:57 Nasal Cannula 2.0 28 09/10/18 21:57 95 18 97 Nasal Cannula 2.0 28 09/10/18 21:57 97 Nasal Cannula 2.0 28 09/10/18 21:08 85 142/85 09/10/18 20:00 96.5 81 18 142/52 Room Air 81 09/10/18 16:00 98.7 98 18 103/59 97 Nasal Cannula 2.0 09/10/18 15:24 92 16 96 Nasal Cannula 2.0 28 09/10/18 15:12 96 Nasal Cannula 2.0 28 09/10/18 15:12 Nasal Cannula 2.0 28 09/10/18 15:11 100 20 96 Nasal Cannula 2.0 28 09/10/18 12:00 98.1 84 18 133/79 100 Nasal Cannula 2.0 Intake and Output 09/10/18 09/11/18 18:59 06:59 Intake Total 1055 ml Balance 1055 ml Intake Oral 1000 ml IV Total 55 ml Laboratory Tests 09/11/18 05:45: Urine Eosinophils [Pending] 09/11/18 07:39: White Blood Count 8.1, Red Blood Count 2.45L, Hemoglobin 8.5L, Hematocrit 27.0L , Mean Corpuscular Volume 110H, Mean Corpuscular Hemoglobin 34.8H, Mean Corpuscular Hemoglobin Concent 31.6L, Red Cell Distribution Width 14.1, Platelet Count 154, Mean Platelet Volume 6.7, Neutrophils (%) (Auto) 82.6H, Lymphocytes (%) (Auto) 11.6L, Monocytes (%) (Auto) 4.8, Eosinophils (%) (Auto) 0.5, Basophils (%) (Auto) 0.5, Sodium Level 141, Potassium Level 4.4, Chloride Level 110H, Carbon Dioxide Level 21, Anion Gap 10, Blood Urea Nitrogen 36H, Creatinine 1.7H, Estimat Glomerular Filtration Rate , Glucose Level 161H, Calcium Level 8.8, Phosphorus Level 2.4L, Magnesium Level 1.7L, C-Reactive Protein, Quantitative 18.1H Height (Feet): 5 Height (Inches): 1.00 Weight (Pounds): 180 General Appearance: alert Neck: normal alignment, supple Cardiovascular: normal peripheral pulses, normal rate Respiratory/Chest: lungs clear, normal breath sounds Abdomen: non tender, soft Caden Kelsey MD Sep 11, 2018 11:37
--- NOTE | 2018-09-11 11:38 | NUR ---
*-* DISCHARGE PLANNING *-* PATIENT HAS BEEN REFERRED TO: [facility] P:[phone] F:[phone]
--- NOTE | 2018-09-11 11:51 | NUR ---
*-* DISCHARGE PLANNING *-* PATIENT HAS BEEN REFERRED TO: [facility] P:[phone] F:[phone]
[2018-09-11 12:00] VITALS: BP 152/76
[2018-09-11] MEDS: Phospha 250 Neutral tab ORAL SCH ×2 (13:35→18:34)
[2018-09-11] MEDS: cefTRIAXone 1 GM in NS 55 ML IVPB SCH (15:00)
--- NOTE | 2018-09-11 15:42 | Cardiac Electrophysiology PN ---
Assessment/Plan Assessment/Plan 1. Non-ST elevation myocardial infarction with troponin of 28, down to 1.5 . Never had chest pain and could be due to rhabdomyolysis and renal failure Daughter does not want cardiac catheterization. Continue aspirin, beta-millie. Echocardiogram EF 65% 2. Hypertension.On Lopressor 25 bid 3. Hyperlipidemia, off Lipitor due to high CPKs 4. Rhabdomyolysis. CPK 7600 to 350 on IV fluid. 5. Renal failure, creatinine 2.6 down to 1.7 6. DNR and DNI DW RN Subjective Subjective No CP or SOB. RN at bedside Objective Last 24 Hour Vital Signs Date Time Temp Pulse Resp B/P (MAP) Pulse Ox O2 Delivery O2 Flow Rate FiO2 09/11/18 13:10 79 14 98 Nasal Cannula 2.0 09/11/18 13:02 78 12 96 Nasal Cannula 2.0 28 09/11/18 12:00 97.7 99 152/76 Nasal Cannula 2.0 19 09/11/18 09:00 Nasal Cannula 2.0 09/11/18 08:27 103 139/68 09/11/18 08:19 97.9 103 139/68 Room Air 19 09/11/18 07:25 94 18 97 Room Air 21 09/11/18 07:24 96 Room Air 21 09/11/18 07:24 Room Air 21 09/11/18 07:20 96 16 95 Room Air 21 09/11/18 04:00 97.8 96 122/61 Room Air 16 09/11/18 02:10 98 18 98 Nasal Cannula 2.0 09/11/18 01:59 96 18 97 Nasal Cannula 2.0 09/11/18 00:00 98.4 105 19 163/89 Room Air 09/10/18 22:21 Nasal Cannula 2.0 09/10/18 22:07 91 18 100 Nasal Cannula 2.0 28 09/10/18 21:57 Nasal Cannula 2.0 28 09/10/18 21:57 95 18 97 Nasal Cannula 2.0 09/10/18 21:57 97 Nasal Cannula 2.0 28 09/10/18 21:08 85 142/85 09/10/18 20:00 96.5 81 18 142/52 Room Air 81 09/10/18 16:00 98.7 98 18 103/59 97 Nasal Cannula 2.0 Intake and Output 09/10/18 09/11/18 18:59 06:59 Intake Total 1055 ml Balance 1055 ml Intake Oral 1000 ml IV Total 55 ml Laboratory Tests Test 09/11/18 05:45 09/11/18 07:39 Urine Eosinophils None seen (NONE SEEN) White Blood Count 8.1 K/UL (4.8-10.8) Red Blood Count 2.45 M/UL (4.20-5.40) L Hemoglobin 8.5 G/DL (12.0-16.0) L Hematocrit 27.0 % (37.0-47.0) L Mean Corpuscular Volume 110 FL (80-99) H Mean Corpuscular Hemoglobin 34.8 PG (27.0-31.0) H Mean Corpuscular Hemoglobin Concent 31.6 G/DL (32.0-36.0) L Red Cell Distribution Width 14.1 % (11.6-14.8) Platelet Count 154 K/UL (150-450) Mean Platelet Volume 6.7 FL (6.5-10.1) Neutrophils (%) (Auto) 82.6 % (45.0-75.0) H Lymphocytes (%) (Auto) 11.6 % (20.0-45.0) L Monocytes (%) (Auto) 4.8 % (1.0-10.0) Eosinophils (%) (Auto) 0.5 % (0.0-3.0) Basophils (%) (Auto) 0.5 % (0.0-2.0) Sodium Level 141 MMOL/L (136-145) Potassium Level 4.4 MMOL/L (3.5-5.1) Chloride Level 110 MMOL/L (98-107) H Carbon Dioxide Level 21 MMOL/L (21-32) Anion Gap 10 mmol/L (5-15) Blood Urea Nitrogen 36 mg/dL (7-18) H Creatinine 1.7 MG/DL (0.55-1.30) H Estimat Glomerular Filtration Rate mL/min (>60) Glucose Level 161 MG/DL (74-106) H Calcium Level 8.8 MG/DL (8.5-10.1) Phosphorus Level 2.4 MG/DL (2.5-4.9) L Magnesium Level 1.7 MG/DL (1.8-2.4) L C-Reactive Protein, Quantitative 18.1 mg/dL (0.00-0.90) H Objective HEAD AND NECK: No JVD. LUNGS: Coarse rhonchi. CARDIOVASCULAR: Regular S1 and S2 with no gallop or murmur. ABDOMEN: Soft. EXTREMITIES: No pitting edema. Kevin Ruiz MD Sep 11, 2018 15:42
[2018-09-11 16:00] VITALS: BP 140/64
--- NOTE | 2018-09-11 16:42 | NUR ---
NURSE NOTES: received call from [facility]. patient new prescribed medications for discharge are ready. co pay $3.10 informed daughter and she will pay by [place]una tonight when she visits patient.
--- NOTE | 2018-09-11 17:39 | NUR ---
NURSE NOTES: notified daughter(avni Huizar) regarding discharge plan. if patient can not get a bed at [facility], patient will be discharged to home with home health as MD order. the daughter verbalized understood and agreed
--- NOTE | 2018-09-11 19:02 | NUR ---
HAND-OFF: Report given to ROQUE Bhardwaj.
--- NOTE | 2018-09-11 19:13 | General Progress Note ---
Assessment/Plan Assessment/Plan Assessment/Plan: # Thrombocytopenia - potential causes multifactorial, evaluate liver and viral etiologies to begin, also could be related to underlying medications patient has received. --> Hep panel and HIV ordered --> US abd to evaluate for cirrhosis and hsm ordered -->VQ scan reveals, low probability for pulmonary embolus --> Peripheral smear ordered to evaluate for blasts /schistocytes --> abx and other meds have been reviewed --> ok for ppx if plt >50k w/ either heparin or lovenox --> Transfuse if Plt < 20k and fever, or if Plt < 10k without fever # Anemia of chronic disease due to underlying chronic medical issues, multifactorial, ferritin elev --> Anemia workup has been ordered and reviewed --> No evidence of hemolysis is noted, peripheral smear has been reviewed. --> Hgb goal >7. Transfuse prn. --> Epogen or iron at this time is not particularly indicated --> Medications have been reviewed # Fall , ground level --> pt/ot as needed, prn # Rhabdomyolysis --> ivf to be given # HAIR # Hyperkalemia # Possible NSTEMI --> seen by Cardiology --> off anticoag, appreciate cards recs # Possible UTI --> start ceftriaxone --> follow up urine culture # Type 2 DM --> lispro SS # HTN --> sbp goal <150 # DNR The timing of this note does not necessarily reflect the time of the patient was seen. Greatly appreciate consultation! Subjective ROS Limited/Unobtainable: Yes Allergies: Coded Allergies: No Known Allergies (Verified , 10/20/11) Subjective 09/10:patient resting in bed, confused/disoriented, speaks Serbian only, VQ scan reveals, low probability for pulmonary embolus 09/11: seen by bedside, awake, comfortable, no acute distress. Objective Last 24 Hour Vital Signs Date Time Temp Pulse Resp B/P (MAP) Pulse Ox O2 Delivery O2 Flow Rate FiO2 09/11/18 16:00 97.9 102 140/64 Nasal Cannula 2.0 20 09/11/18 13:10 79 14 98 Nasal Cannula 2.0 28 09/11/18 13:02 78 12 96 Nasal Cannula 2.0 09/11/18 12:00 97.7 99 152/76 Nasal Cannula 2.0 19 09/11/18 09:00 Nasal Cannula 2.0 09/11/18 08:27 103 139/68 09/11/18 08:19 97.9 103 139/68 Room Air 19 09/11/18 07:25 94 18 97 Room Air 21 09/11/18 07:24 96 Room Air 21 09/11/18 07:24 Room Air 21 09/11/18 07:20 96 16 95 Room Air 21 09/11/18 04:00 97.8 96 122/61 Room Air 16 09/11/18 02:10 98 18 98 Nasal Cannula 2.0 28 09/11/18 01:59 96 18 97 Nasal Cannula 2.0 28 09/11/18 00:00 98.4 105 19 163/89 Room Air 09/10/18 22:21 Nasal Cannula 2.0 09/10/18 22:07 91 18 100 Nasal Cannula 2.0 28 09/10/18 21:57 Nasal Cannula 2.0 28 09/10/18 21:57 95 18 97 Nasal Cannula 2.0 28 09/10/18 21:57 97 Nasal Cannula 2.0 28 09/10/18 21:08 85 142/85 09/10/18 20:00 96.5 81 18 142/52 Room Air 81 Intake and Output 09/10/18 09/11/18 19:00 07:00 Intake Total 1055 ml Balance 1055 ml Intake Oral 1000 ml IV Total 55 ml Laboratory Tests 09/11/18 05:45: Urine Eosinophils None seen 09/11/18 07:39: White Blood Count 8.1, Red Blood Count 2.45L, Hemoglobin 8.5L, Hematocrit 27.0L , Mean Corpuscular Volume 110H, Mean Corpuscular Hemoglobin 34.8H, Mean Corpuscular Hemoglobin Concent 31.6L, Red Cell Distribution Width 14.1, Platelet Count 154, Mean Platelet Volume 6.7, Neutrophils (%) (Auto) 82.6H, Lymphocytes (%) (Auto) 11.6L, Monocytes (%) (Auto) 4.8, Eosinophils (%) (Auto) 0.5, Basophils (%) (Auto) 0.5, Sodium Level 141, Potassium Level 4.4, Chloride Level 110H, Carbon Dioxide Level 21, Anion Gap 10, Blood Urea Nitrogen 36H, Creatinine 1.7H, Estimat Glomerular Filtration Rate , Glucose Level 161H, Calcium Level 8.8, Phosphorus Level 2.4L, Magnesium Level 1.7L, C-Reactive Protein, Quantitative 18.1H 09/11/18 17:00: Urine Eosinophils [Pending] Height (Feet): 5 Height (Inches): 1.00 Weight (Pounds): 180 Objective Physical Exam General Appearance: no apparent distress, alert HEENT: normocephalic, atraumatic Neck: non-tender, normal alignment Respiratory/Chest: chest wall non-tender Abdomen: normal bowel sounds, non tender, soft Extremities: normal range of motion, other - Tender right knee ttp better Neurologic: interior paneler II-XII grossly normal Musculoskeletal: normal muscle bulk, no effusion Balbir Allison MD Sep 11, 2018 19:13
--- NOTE | 2018-09-11 19:27 | NUR ---
NURSE NOTES: Received patient in bed, Georgian speaking only, confused at times, no acute distress noted, call light is within reach, bed is locked, alarm is on, bed is in low position, will continue to monitor for safety and comfort. Continue with POC.
--- NOTE | 2018-09-11 19:41 | NUR ---
CASE MANAGEMENT: REVIEW SI: AMS . NSTEMI . RHABDOMYOLYSIS T 97.7 HR 102 RR 14 BP 140/64 SAT 96% NC/2L H/H 8.5/27.0 IS: EPOETIN SQ MWF ECOTRIN PO QD HEPARIN SQ Q12HR CEFTRIAXONE IV Q24HR MED/SURG STATUS DCP: PATIENT IS FROM HOME
[2018-09-11 20:00] VITALS: BP 162/83
[2018-09-11] MEDS: Lyrica 50mg cap ORAL SCH (20:46)
[2018-09-12] VITALS: BP 155/92
[2018-09-12 01:03] VITALS: BP 155/92
[2018-09-12 01:06] VITALS: BP 155/92
[2018-09-12] MEDS: Albuterol/Ipratropium 3ml neb HHN SCH ×2 (01:51→07:34)
[2018-09-12 04:22] VITALS: BP 155/92
[2018-09-12] MEDS: NovoLOG Insulin Flexpen SUBQ SCH (05:36)
--- NOTE | 2018-09-12 06:59 | NUR ---
HAND-OFF: Report given to Chantell CARDENAS.
[2018-09-12 07:05] LABS: BASOPHILS % (AUTO) 0.6 % (0.0-2.0); HEMATOCRIT 26.5 % (37.0-47.0); HEMOGLOBIN 8.6 G/DL (12.0-16.0); LYMPHOCYTES % (AUTO) 16.3 % (20.0-45.0); MEAN CORPUSCULAR VOLUME 108 FL (80-99); MONOCYTES % (AUTO) 6.3 % (1.0-10.0); NEUTROPHILS % (AUTO) 74.9 % (45.0-75.0); PLATELET COUNT 197 K/UL (150-450); RED BLOOD COUNT 2.44 M/UL (4.20-5.40); RED CELL DISTRIBUTION WIDTH 13.8 % (11.6-14.8); WHITE BLOOD COUNT 6.5 K/UL (4.8-10.8)
[2018-09-12 07:47] LABS: ALANINE AMINOTRANSFERASE 59 U/L (12-78); ALBUMIN 2.3 G/DL (3.4-5.0); ALBUMIN/GLOBULIN RATIO 0.6 (1.0-2.7); ALKALINE PHOSPHATASE 59 U/L (46-116); ANION GAP 11 mmol/L (5-15); ASPARTATE AMINO TRANSFERASE 46 U/L (15-37); BILIRUBIN,TOTAL 0.5 MG/DL (0.2-1.0); BLOOD UREA NITROGEN 32 mg/dL (7-18); CALCIUM 8.9 MG/DL (8.5-10.1); CARBON DIOXIDE 22 MMOL/L (21-32); CHLORIDE 109 MMOL/L (98-107); CREATINE KINASE 391 U/L (26-308); CREATININE 1.5 MG/DL (0.55-1.30); GAMMA GLUTAMYL TRANSPEPTIDASE 15 U/L (5-85); PHOSPHORUS 3.3 MG/DL (2.5-4.9); POTASSIUM 3.9 MMOL/L (3.5-5.1); SODIUM 142 MMOL/L (136-145)
[2018-09-12 08:00] VITALS: BP 138/79
--- NOTE | 2018-09-12 08:02 | NUR ---
NURSE NOTES: Patient alert x3, on nasal cannula 2 liter, no sign of distress and shortness of breath. Michelle in place, drains well. IV RW flushes well. Will check blood sugar as scheduled. Patient's lab for Tropini is 0.197, I communicated Dr Ruiz, he order "DC all further troponins". Charge nurse Nancy is aware. Skin intact. Bed at lowest position, side rails up x2, breaks engaged. Call light within reach. Will keep monitoring.
[2018-09-12] MEDS: Aspirin EC 81mg tab ORAL SCH (09:25)
[2018-09-12 09:26] VITALS: BP 138/79
[2018-09-12] MEDS: Phospha 250 Neutral tab ORAL SCH (09:26)
[2018-09-12] MEDS: Metoprolol 25mg tab ORAL SCH (09:26)
[2018-09-12] MEDS: Heparin 5000 units/ml inj SUBQ SCH (09:27)
--- NOTE | 2018-09-12 10:11 | NUR ---
*-* DISCHARGE PLANNED *-* JOSE ALBERTO IS DISCAHRGED TO: [facility] ROOM# 139-A SKILLED T:[phone] FOR NURSE TO NURSE REPORT [facility] HAS BEEN ARRANGED FOR LICENSE REGISTRATION EXAMINER AT [address] [id number]
--- NOTE | 2018-09-12 12:07 | Cardiac Electrophysiology PN ---
Assessment/Plan Assessment/Plan 1. Non-ST elevation myocardial infarction with troponin of 28, down to 1.5 . Never had chest pain and could be due to rhabdomyolysis and renal failure Daughter does not want cardiac catheterization. Continue aspirin, beta-millie. Echocardiogram EF 65% 2. Hypertension.On Lopressor 25 bid 3. Hyperlipidemia, off Lipitor due to high CPKs 4. Rhabdomyolysis. CPK 7600 to 350 on IV fluid. 5. Renal failure, creatinine 2.6 down to 1.7 6. DNR and DNI DC today Subjective Subjective No events. Being DCed today. Objective Last 24 Hour Vital Signs Date Time Temp Pulse Resp B/P (MAP) Pulse Ox O2 Delivery O2 Flow Rate FiO2 09/12/18 09:26 99 138/79 09/12/18 09:00 Nasal Cannula 2.0 09/12/18 08:00 99.1 99 20 138/79 96 Room Air 09/12/18 07:45 105 18 97 Nasal Cannula 2.0 09/12/18 07:35 83 16 94 Room Air 09/12/18 07:34 Room Air 21 09/12/18 07:34 94 Room Air 21 09/12/18 04:22 98.3 110 18 155/92 94 Room Air 09/12/18 01:52 108 18 98 Nasal Cannula 2.0 09/12/18 01:42 108 18 92 Nasal Cannula 2.0 09/12/18 01:06 98.3 110 21 155/92 Room Air 09/12/18 01:03 98.3 110 18 155/92 94 Room Air 09/12/18 00:00 98.3 110 21 155/92 Room Air 09/11/18 22:38 Nasal Cannula 2.0 09/11/18 20:45 107 162/83 09/11/18 20:00 98.5 107 20 162/83 Room Air 09/11/18 20:00 94 Nasal Cannula 2.0 09/11/18 20:00 Nasal Cannula 2.0 28 09/11/18 20:00 105 18 95 Nasal Cannula 2.0 09/11/18 19:50 101 18 94 Nasal Cannula 2.0 09/11/18 16:00 97.9 102 140/64 Nasal Cannula 2.0 20 09/11/18 13:10 79 14 98 Nasal Cannula 2.0 09/11/18 13:02 78 12 96 Nasal Cannula 2.0 28 Intake and Output 09/11/18 09/12/18 19:00 07:00 Intake Total 955 ml 300 ml Output Total 800 ml 800 ml Balance 155 ml -500 ml Intake Oral 700 ml IV Total 255 ml Other 300 ml Output Urine Total 800 ml 800 ml # Voids 5 1 Laboratory Tests Test 09/11/18 17:00 09/12/18 06:30 Urine Eosinophils Pending White Blood Count 6.5 K/UL (4.8-10.8) Red Blood Count 2.44 M/UL (4.20-5.40) L Hemoglobin 8.6 G/DL (12.0-16.0) L Hematocrit 26.5 % (37.0-47.0) L Mean Corpuscular Volume 108 FL (80-99) H Mean Corpuscular Hemoglobin 35.1 PG (27.0-31.0) H Mean Corpuscular Hemoglobin Concent 32.4 G/DL (32.0-36.0) Red Cell Distribution Width 13.8 % (11.6-14.8) Platelet Count 197 K/UL (150-450) Mean Platelet Volume 7.5 FL (6.5-10.1) Neutrophils (%) (Auto) 74.9 % (45.0-75.0) Lymphocytes (%) (Auto) 16.3 % (20.0-45.0) L Monocytes (%) (Auto) 6.3 % (1.0-10.0) Eosinophils (%) (Auto) 2.0 % (0.0-3.0) Basophils (%) (Auto) 0.6 % (0.0-2.0) Sodium Level 142 MMOL/L (136-145) Potassium Level 3.9 MMOL/L (3.5-5.1) Chloride Level 109 MMOL/L (98-107) H Carbon Dioxide Level 22 MMOL/L (21-32) Anion Gap 11 mmol/L (5-15) Blood Urea Nitrogen 32 mg/dL (7-18) H Creatinine 1.5 MG/DL (0.55-1.30) H Estimat Glomerular Filtration Rate mL/min (>60) Glucose Level 154 MG/DL (74-106) H Uric Acid 4.8 MG/DL (2.6-7.2) Calcium Level 8.9 MG/DL (8.5-10.1) Phosphorus Level 3.3 MG/DL (2.5-4.9) Magnesium Level 2.0 MG/DL (1.8-2.4) Total Bilirubin 0.5 MG/DL (0.2-1.0) Gamma Glutamyl Transpeptidase 15 U/L (5-85) Aspartate Amino Transf (AST/SGOT) 46 U/L (15-37) H Alanine Aminotransferase (ALT/SGPT) 59 U/L (12-78) Alkaline Phosphatase 59 U/L (46-116) Total Creatine Kinase 391 U/L (26-308) H Troponin I 0.197 ng/mL (0.000-0.056) Pro-B-Type Natriuretic Peptide 47823 pg/mL (0-125) H Total Protein 5.9 G/DL (6.4-8.2) L Albumin 2.3 G/DL (3.4-5.0) L Globulin 3.6 g/dL Albumin/Globulin Ratio 0.6 (1.0-2.7) L Objective HEAD AND NECK: No JVD. LUNGS: Coarse rhonchi. CARDIOVASCULAR: Regular S1 and S2 with no gallop or murmur. ABDOMEN: Soft. EXTREMITIES: No pitting edema. Kevin Ruiz MD Sep 12, 2018 12:07
--- NOTE | 2018-09-12 12:32 | NUR ---
NURSE NOTES: Patient discharged to [facility], left the floor accompanied by ambulance personnel and patient's daughter. IV access, name tag and leo cath removed before discharge. Patient was stable upon discharge. Patient's daughter received medications brought by [facility]. Report given toPerla at [facility]. Patient's belongings crossed match and sign by discharging nurse and patient.
--- NOTE | 2018-09-12 12:32 | Nephrology Progress Note ---
Assessment/Plan Problem List: (1) Renal failure (ARF), acute on chronic Assessment: Cr lower (2) Diabetic nephropathy (3) Rhabdomyolysis Assessment: CPK lower (4) NSTEMI (non-ST elevated myocardial infarction) Assessment Acute Renal Failure- possibly superimposed on chronic Fall, Rhabdo High K Myocardial injury ( elevated Troponin) UTI DM with Proteinuria: Likely Diabetic Nephropathy HTN right knee swelling ? Arthritis Plan mag and phos supplement urine studies gastric protection 2D echo noted CPK lower antibiotics per orders DC ? Subjective ROS Limited/Unobtainable: No Interval Events/Complaints seen 9 am Objective Objective Last 24 Hour Vital Signs Date Time Temp Pulse Resp B/P (MAP) Pulse Ox O2 Delivery O2 Flow Rate FiO2 09/12/18 09:26 99 138/79 09/12/18 09:00 Nasal Cannula 2.0 09/12/18 08:00 99.1 99 20 138/79 96 Room Air 09/12/18 07:45 105 18 97 Nasal Cannula 2.0 09/12/18 07:35 83 16 94 Room Air 21 09/12/18 07:34 Room Air 21 09/12/18 07:34 94 Room Air 21 09/12/18 04:22 98.3 110 18 155/92 94 Room Air 09/12/18 01:52 108 18 98 Nasal Cannula 2.0 09/12/18 01:42 108 18 92 Nasal Cannula 2.0 09/12/18 01:06 98.3 110 21 155/92 Room Air 09/12/18 01:03 98.3 110 18 155/92 94 Room Air 09/12/18 00:00 98.3 110 21 155/92 Room Air 09/11/18 22:38 Nasal Cannula 2.0 09/11/18 20:45 107 162/83 09/11/18 20:00 98.5 107 20 162/83 Room Air 09/11/18 20:00 94 Nasal Cannula 2.0 28 09/11/18 20:00 Nasal Cannula 2.0 28 09/11/18 20:00 105 18 95 Nasal Cannula 2.0 28 09/11/18 19:50 101 18 94 Nasal Cannula 2.0 28 09/11/18 16:00 97.9 102 140/64 Nasal Cannula 2.0 20 09/11/18 13:10 79 14 98 Nasal Cannula 2.0 28 09/11/18 13:02 78 12 96 Nasal Cannula 2.0 28 Intake and Output 09/11/18 09/12/18 19:00 07:00 Intake Total 955 ml 300 ml Output Total 800 ml 800 ml Balance 155 ml -500 ml Intake Oral 700 ml IV Total 255 ml Other 300 ml Output Urine Total 800 ml 800 ml # Voids 5 1 Laboratory Tests 09/11/18 17:00: Urine Eosinophils [Pending] 09/12/18 06:30: White Blood Count 6.5, Red Blood Count 2.44L, Hemoglobin 8.6L, Hematocrit 26.5L , Mean Corpuscular Volume 108H, Mean Corpuscular Hemoglobin 35.1H, Mean Corpuscular Hemoglobin Concent 32.4, Red Cell Distribution Width 13.8, Platelet Count 197, Mean Platelet Volume 7.5, Neutrophils (%) (Auto) 74.9, Lymphocytes (% ) (Auto) 16.3L, Monocytes (%) (Auto) 6.3, Eosinophils (%) (Auto) 2.0, Basophils (%) (Auto) 0.6, Sodium Level 142, Potassium Level 3.9, Chloride Level 109H, Carbon Dioxide Level 22, Anion Gap 11, Blood Urea Nitrogen 32H, Creatinine 1.5H , Estimat Glomerular Filtration Rate , Glucose Level 154H, Uric Acid 4.8, Calcium Level 8.9, Phosphorus Level 3.3, Magnesium Level 2.0, Total Bilirubin 0.5, Gamma Glutamyl Transpeptidase 15, Aspartate Amino Transf (AST/SGOT) 46H, Alanine Aminotransferase (ALT/SGPT) 59, Alkaline Phosphatase 59, Total Creatine Kinase 391H, Troponin I 0.197H, Pro-B-Type Natriuretic Peptide 71848O, Total Protein 5.9L, Albumin 2.3L, Globulin 3.6, Albumin/Globulin Ratio 0.6L Height (Feet): 5 Height (Inches): 1.00 Weight (Pounds): 180 General Appearance: no apparent distress Objective no change Erick Patterson MD Sep 12, 2018 12:32
--- NOTE | 2018-09-12 17:34 | General Progress Note ---
Assessment/Plan Assessment/Plan Assessment/Plan: # Thrombocytopenia - potential causes multifactorial, evaluate liver and viral etiologies to begin, also could be related to underlying medications patient has received. --> Hep panel and HIV ordered --> US abd to evaluate for cirrhosis and hsm ordered -->VQ scan reveals, low probability for pulmonary embolus --> Peripheral smear ordered to evaluate for blasts /schistocytes --> abx and other meds have been reviewed --> ok for ppx if plt >50k w/ either heparin or lovenox --> Transfuse if Plt < 20k and fever, or if Plt < 10k without fever # Anemia of chronic disease due to underlying chronic medical issues, multifactorial, ferritin elev --> Anemia workup has been ordered and reviewed --> No evidence of hemolysis is noted, peripheral smear has been reviewed. --> Hgb goal >7. Transfuse prn. --> Epogen or iron at this time is not particularly indicated --> Medications have been reviewed # Fall , ground level --> pt/ot as needed, prn # Rhabdomyolysis --> ivf to be given # HAIR # Hyperkalemia # Possible NSTEMI --> seen by Cardiology --> off anticoag, appreciate cards recs # Possible UTI --> start ceftriaxone --> follow up urine culture # Type 2 DM --> lispro SS # HTN --> sbp goal <150 # DNR The timing of this note does not necessarily reflect the time of the patient was seen. Greatly appreciate consultation! Subjective Constitutional: Denies: no symptoms, chills, diaphoresis, fever, malaise, weakness, other HEENT: Denies: no symptoms, eye pain, blurred vision, tearing, double vision, ear pain, ear discharge, nose pain, nose congestion, throat pain, throat swelling, mouth pain, mouth swelling, other Cardiovascular: Denies: no symptoms, chest pain, edema, irregular heart rate, lightheadedness, palpitations, syncope, other Respiratory: Denies: no symptoms, cough, orthopnea, shortness of breath, SOB with excertion, SOB at rest, sputum, stridor, wheezing, other Genitourinary: Denies: no symptoms, burning, discharge, frequency, flank pain, hematuria, incontinence, pain, urgency, other Neurologic/Psychiatric: Denies: no symptoms, anxiety, depressed, emotional problems, headache, numbness, paresthesia, pre-existing deficit, seizure, tingling, tremors, weakness, other Endocrine: Denies: no symptoms, excessive sweating, flushing, intolerance to cold, intolerance to heat, increased hunger, increased thirst, increased urine, unexplained weight gain, unexplained weight loss, other Hematologic/Lymphatic: Denies: no symptoms, anemia, easy bleeding, easy bruising, other Allergies: Coded Allergies: No Known Allergies (Verified , 10/20/11) Subjective 09/10:patient resting in bed, confused/disoriented, speaks Kyrgyz only, VQ scan reveals, low probability for pulmonary embolus 09/11: seen by bedside, awake, comfortable, no acute distress. 09/12: Pt is awake, comfortable, no acute distress Objective Last 24 Hour Vital Signs Date Time Temp Pulse Resp B/P (MAP) Pulse Ox O2 Delivery O2 Flow Rate FiO2 09/12/18 09:26 99 138/79 09/12/18 09:00 Nasal Cannula 2.0 09/12/18 08:00 99.1 99 20 138/79 96 Room Air 09/12/18 07:45 105 18 97 Nasal Cannula 2.0 09/12/18 07:35 83 16 94 Room Air 09/12/18 07:34 Room Air 09/12/18 07:34 94 Room Air 09/12/18 04:22 98.3 110 18 155/92 94 Room Air 09/12/18 01:52 108 18 98 Nasal Cannula 2.0 09/12/18 01:42 108 18 92 Nasal Cannula 2.0 09/12/18 01:06 98.3 110 21 155/92 Room Air 09/12/18 01:03 98.3 110 18 155/92 94 Room Air 09/12/18 00:00 98.3 110 21 155/92 Room Air 09/11/18 22:38 Nasal Cannula 2.0 09/11/18 20:45 107 162/83 09/11/18 20:00 98.5 107 20 162/83 Room Air 09/11/18 20:00 94 Nasal Cannula 2.0 28 09/11/18 20:00 Nasal Cannula 2.0 28 09/11/18 20:00 105 18 95 Nasal Cannula 2.0 28 09/11/18 19:50 101 18 94 Nasal Cannula 2.0 28 Intake and Output 09/11/18 09/12/18 18:59 06:59 Intake Total 955 ml 300 ml Output Total 800 ml 800 ml Balance 155 ml -500 ml Intake Oral 700 ml IV Total 255 ml Other 300 ml Output Urine Total 800 ml 800 ml # Voids 5 1 Laboratory Tests 09/12/18 06:30: White Blood Count 6.5, Red Blood Count 2.44L, Hemoglobin 8.6L, Hematocrit 26.5L , Mean Corpuscular Volume 108H, Mean Corpuscular Hemoglobin 35.1H, Mean Corpuscular Hemoglobin Concent 32.4, Red Cell Distribution Width 13.8, Platelet Count 197, Mean Platelet Volume 7.5, Neutrophils (%) (Auto) 74.9, Lymphocytes (% ) (Auto) 16.3L, Monocytes (%) (Auto) 6.3, Eosinophils (%) (Auto) 2.0, Basophils (%) (Auto) 0.6, Sodium Level 142, Potassium Level 3.9, Chloride Level 109H, Carbon Dioxide Level 22, Anion Gap 11, Blood Urea Nitrogen 32H, Creatinine 1.5H , Estimat Glomerular Filtration Rate , Glucose Level 154H, Uric Acid 4.8, Calcium Level 8.9, Phosphorus Level 3.3, Magnesium Level 2.0, Total Bilirubin 0.5, Gamma Glutamyl Transpeptidase 15, Aspartate Amino Transf (AST/SGOT) 46H, Alanine Aminotransferase (ALT/SGPT) 59, Alkaline Phosphatase 59, Total Creatine Kinase 391H, Troponin I 0.197H, Pro-B-Type Natriuretic Peptide 19609G, Total Protein 5.9L, Albumin 2.3L, Globulin 3.6, Albumin/Globulin Ratio 0.6L Height (Feet): 5 Height (Inches): 1.00 Weight (Pounds): 180 Objective Physical Exam General Appearance: no apparent distress, alert HEENT: normocephalic, atraumatic Neck: non-tender, normal alignment Respiratory/Chest: chest wall non-tender Abdomen: normal bowel sounds, non tender, soft Extremities: normal range of motion, other - Tender right knee ttp better Neurologic: creel cleaner II-XII grossly normal Musculoskeletal: normal muscle bulk, no effusion Balbir Allison MD Sep 12, 2018 17:34
--- NOTE | 2018-09-13 14:00 | Discharge Summary ---
Discharge Summary Discharge Summary _ Addendum: Patient left on 09/12/2018. Patient daughter initially refused transfer to care home. Patient was referred to home health. Family agreed to snf placement. Bed was secured. She was eventually discharged to SNF. Cherelle Chanel NP Sep 13, 2018 14:00
== END 2018-09-12 08:20 | DRG 871 ==
LOC: EDSEX 13:13 → EDBD 13:13 → EMR 14:20 → ICU 14:39 → EDBEDREQSVC 15:28 → EDBEDREQ 15:28 → 2E 09-08 13:00 → 4E 09-09 13:35
DX: A41.9 Sepsis, unspecified organism (principal); I21.4 Non-ST elevation (NSTEMI) myocardial infarction; N39.0 Urinary tract infection, site not specified; N17.9 Acute kidney failure, unspecified; E87.2 Acidosis; M62.82 Rhabdomyolysis; I10 Essential (primary) hypertension; E87.5 Hyperkalemia; R65.20 Severe sepsis without septic shock; E11.21 Type 2 diabetes mellitus with diabetic nephropathy; I12.9 Hypertensive chronic kidney disease with stage 1 through stage 4 chronic kidney disease, or unspecified chronic kidney disease; E11.22 Type 2 diabetes mellitus with diabetic chronic kidney disease; N18.9 Chronic kidney disease, unspecified; M17.11 Unilateral primary osteoarthritis, right knee; E78.5 Hyperlipidemia, unspecified; E78.00 Pure hypercholesterolemia, unspecified; D69.6 Thrombocytopenia, unspecified; D64.9 Anemia, unspecified; Z66 Do not resuscitate; B96.20 Unspecified Escherichia coli [E. coli] as the cause of diseases classified elsewhere
CPT/HCPCS: 36415; 70450; 71045; 72170; 78579; 78580; 80048; 80053; 80061; 80202; 81001; 82550; 82607; 82728; 82746; 82962; 82977; 83036; 83540; 83550; 83605; 83735; 83880; 84100; 84300; 84439; 84443; 84484; 84550; 85007; 85025; 85379; 85610; 85730; 86140; 86703; 86705; 86709; 86803; 87040; 87081; 87086; 87181; 87340; 89050; 93005; 93306; 93970; 94640; 94664; 94760; 96365; 99291; A9503; C9399; J1815; J7620; J8499